=== PATIENT | female | born 1965 | race Caucasian/White ===

== ENCOUNTER → 2019-04-03 | Outpatient (CLI) | payer MEDICAID ==
[~2019-04-03] MED LIST: FLUO40CA PO; HYDR-34 PO; METF-380 PO; NAPR220C11 PO; PNT40TEC PO
[2019-04-03 14:30] LABS: ABSOLUTE RETIC # 57 10e9/L (24-90); RETICULOCYTE % 1.17 % (0.50-2.40)
[2019-04-03 14:43] LABS: BAND NEUTROPHILS 2 %; BASOPHILS % (MANUAL) 0 %; EOSINOPHILS % (MANUAL) 2 %; LYMPHOCYTES % (MANUAL) 27 %; MONOCYTES % (MANUAL) 12 %; NEUTROPHILS % (MANUAL) 55 %; REACTIVE LYMPHOCYTES 2 %
[2019-04-03 14:44] LABS: RBC MORPH NORMAL
== END ==
LOC: LABNPT 14:21
PROVIDERS: ATTEND Family Medicine
DX: Z01.89 Encounter for other specified special examinations (principal)
CPT/HCPCS: 85007; 85045

== ENCOUNTER 2019-04-30 06:58 | Day surgery (SDC) | payer MEDICAID ==
[2019-04-30] VITALS (10 sets, daily range): BP systolic 97–140; BP diastolic 48–96
[~2019-04-30] VITALS: Ht 181 cm; Wt 158.1 kg
[2019-04-30 07:39] LABS: BASOPHILS % (AUTO) 0 % (0-10); EOSINOPHILS # (AUTO) 0.1 10^3/uL (0.0-0.3); EOSINOPHILS % (AUTO) 3 % (0-10); HEMATOCRIT 45 % (35-52); HEMOGLOBIN 14.2 G/DL (11.5-16.0); LYMPHOCYTES # (AUTO) 0.7 X 10^3 (1.0-4.0); LYMPHOCYTES % (AUTO) 32 % (12-44); MEAN CORPUSCULAR HEMOGLOBIN 30 PG (25-34); MEAN CORPUSCULAR HGB CONC 32 G/DL (32-36); MEAN CORPUSCULAR VOLUME 95 FL (80-99); MEAN PLATELET VOLUME 9.9 FL (7.4-10.4); MONOCYTES # (AUTO) 0.2 X 10^3 (0.0-1.0); MONOCYTES % (AUTO) 8 % (0-12); NEUTROPHILS # (AUTO) 1.3 X 10^3 (1.8-7.8); NEUTROPHILS % (AUTO) 57 % (42-75); PLATELET COUNT 65 10^3/uL (130-400); WHITE BLOOD COUNT 2.2 10^3/uL (4.3-11.0)
[2019-04-30 08:13] LABS: BASOPHILS % (MANUAL) 1 %; EOSINOPHILS % (MANUAL) 1 %; LYMPHOCYTES % (MANUAL) 28 %; MONOCYTES % (MANUAL) 7 %; NEUTROPHILS % (MANUAL) 63 %; RBC MORPH NORMAL
[2019-04-30 08:18] LABS: PROTHROMBIN TIME PATIENT 13.5 SEC (12.2-14.7)
[2019-04-30 08:24] LABS: ABSOLUTE RETIC # 52 10e9/L (24-90); RETICULOCYTE % 1.11 % (0.50-2.40)
[2019-04-30] MEDS ORDERED: NS IV 1000 ML 1,000 ML IV STA (08:34)
[2019-04-30] MEDS ORDERED: LIDOCAINE 1% INJ 20 ML 20 ML VIAL INJ ONE (08:45)
[2019-04-30] MEDS ORDERED: MIDAZOLAM 2 MG/2 ML (VERSED) VIAL IVP ONE (08:45)
[2019-04-30] MEDS ORDERED: fentaNYL INJECTION 100 MCG/2 ML AMP IVP ONE (08:45)
--- NOTE | 2019-04-30 09:16 | NUR ---
TO RADIOLOGY FOR PROCEDURE.
--- NOTE | 2019-04-30 10:08 | NUR ---
BACK FROM RADIOLOGY. REPORT RECEIVED FROM Darryn PINTO RN. SCANT AMOUNT OF SHADOWING NOTED ON THE DRESSING. VSS. PRESSURE APPLIED TO THE SITE.
[2019-04-30] MEDS ORDERED: HYDROcodone/APAP 5 MG/325 MG (LORTAB) TAB ONE (10:26)
--- NOTE | 2019-04-30 10:42 | Diagnostic Imaging Report ---
Indication: Decreased white blood cell count. Findings: Patient brought to the CT suite and placed on the table in prone position. Axial imaging through the pelvis was performed to evaluate appropriate entry site. The skin of the posterior pelvis was prepped and draped in usual sterile fashion. The procedure was performed utilizing conscious sedation with radiology nursing and constipation monitoring. Patient was administered a total of 100 mcg of fentanyl intravenously and 1.5 mg of Versed intravenously. Total procedure time is 11 minutes. Small amount of 1% lidocaine was utilized for local anesthesia. Bone marrow needle was advanced and placed with its tip along the posterior cortex of the right iliac bone. The needle was advanced through the cortex into the marrow utilizing the bone marrow drill. The bone marrow aspirate was obtained. Next, a core biopsy was obtained. Needle was removed and hemostasis was obtained using manual compression. Patient tolerated procedure well. Impression: Successful CT-guided bone marrow aspiration and biopsy utilizing conscious sedation. Dictated by: Dictated on workstation # [id number]
--- NOTE | 2019-04-30 10:43 | NUR ---
LORTAB 5 MG X2 GIVEN FOR LOW BACK PAIN. NO FURTHER DRAINAGE NOTED ON THE DRESSING. VSS. LUNCH ORDERED FOR THE PATIENT.
[2019-04-30] MEDS ORDERED: HYDROcodone/APAP 5 MG/325 MG (LORTAB) TAB PO PRN (10:45)
--- NOTE | 2019-04-30 11:48 | Pre-Op Note & Conscious Sedat ---
Pre-Operative Progress Note H&P Reviewed The H&P was reviewed, patient examined and no changes noted. Date H&P Reviewed: Apr 30, 2019 Time H&P Reviewed: 09:00 Pre-Op Diagnosis: Low white blood cell count Conscious Sedation Pre-Proced Time 09:00 ASA Score 2 For ASA 3 and 4: Consider anesthesia and medical clearance. Also, for patients with a history of failed moderate sedation consider anesthesia. Airway Lungs Heart ASA score ASA 1: a normal healthy patient ASA 2: a patient with a mild systemic disease (mid diabetes, controlled hypertension, obesity ASA 3: a patient with a severe systemic disease that limits activity (angina, COPD, prior Myocardial infarction) ASA 4: a patient with an incapacitating disease that is a constant threat to life (CHF, renal failure) ASA 5: a moribund patient not expected to survive 24 hrs. (ruptured aneurysm) ASA 6: a declared brain- patient whose organs are being harvested. For emergent operations, add the letter E after the classification Mallampati Classification Grade 2 Sedation Plan Analgesia, Amnesia, Plan communicated to team members, Discussed options with patient/fam, Discussed risks with patient/fam The patient is an appropriate candidate to undergo the planned procedure, sedation, and anesthesia. The patient immediately re-assessed prior to indication. LACI DE LA GARZA MD Apr 30, 2019 11:48
--- NOTE | 2019-04-30 12:00 | NUR ---
VSS. NO FURTHER DRAINAGE NOTED ON DRESSING. DISCHARGE INSTRUCTIONS WENT OVER WITH THE PATIENT AND HER DAUGHTER.
== END 2019-04-30 12:11 | disposition home or self-care (01) ==
LOC: RAD 06:58 → SDC 10:08 → RAD 12:11
PROVIDERS: ATTEND Internal Medicine Hematology & Oncology
DX: D69.6 Thrombocytopenia, unspecified (principal); I25.10 Atherosclerotic heart disease of native coronary artery without angina pectoris; E11.9 Type 2 diabetes mellitus without complications; D72.818 Other decreased white blood cell count; I10 Essential (primary) hypertension; K58.9 Irritable bowel syndrome, unspecified; E66.01 Morbid (severe) obesity due to excess calories; M19.90 Unspecified osteoarthritis, unspecified site; R16.1 Splenomegaly, not elsewhere classified; I25.2 Old myocardial infarction; Z88.0 Allergy status to penicillin; Z88.8 Allergy status to other drugs, medicaments and biological substances; Z79.84 Long term (current) use of oral hypoglycemic drugs; Z79.899 Other long term (current) drug therapy; Z68.42 Body mass index [BMI] 45.0-49.9, adult; Z90.49 Acquired absence of other specified parts of digestive tract; Z90.710 Acquired absence of both cervix and uterus; Z80.1 Family history of malignant neoplasm of trachea, bronchus and lung; Z80.3 Family history of malignant neoplasm of breast; Z80.6 Family history of leukemia; Z82.49 Family history of ischemic heart disease and other diseases of the circulatory system; Z82.3 Family history of stroke
CPT/HCPCS: 36415; 38222; 77012; 82962; 85007; 85027; 85045; 85610; 85730; 99156

== ENCOUNTER 2019-06-26 09:23 | Outpatient (RCR) | payer MEDICAID ==
[2019-04-16 12:47] LABS: BASOPHILS % (AUTO) 0 % (0-10); EOSINOPHILS # (AUTO) 0.1 10^3/uL (0.0-0.3); EOSINOPHILS % (AUTO) 3 % (0-10); HEMATOCRIT 45 % (35-52); LYMPHOCYTES % (AUTO) 34 % (12-44); MEAN CORPUSCULAR HEMOGLOBIN 31 PG (25-34); MEAN CORPUSCULAR HGB CONC 33 G/DL (32-36); MEAN CORPUSCULAR VOLUME 94 FL (80-99); MEAN PLATELET VOLUME 10.3 FL (7.4-10.4); MONOCYTES # (AUTO) 0.2 X 10^3 (0.0-1.0); MONOCYTES % (AUTO) 8 % (0-12); NEUTROPHILS # (AUTO) 1.6 X 10^3 (1.8-7.8); NEUTROPHILS % (AUTO) 55 % (42-75); PLATELET COUNT 83 10^3/uL (130-400); WHITE BLOOD COUNT 2.9 10^3/uL (4.3-11.0)
[2019-04-16 12:52] LABS: PROTHROMBIN TIME PATIENT 13.4 SEC (12.2-14.7)
[2019-04-16 13:05] LABS: ALANINE AMINOTRANSFERASE 22 U/L (0-55); ALBUMIN 3.8 GM/DL (3.2-4.5); ALKALINE PHOSPHATASE 92 U/L (40-136); BILIRUBIN,TOTAL 0.5 MG/DL (0.1-1.0); BUN/CREATININE RATIO 10; CARBON DIOXIDE 29 MMOL/L (21-32); CHLORIDE 105 MMOL/L (98-107); CREATININE SERUM 0.59 MG/DL (0.60-1.30); GFR ESTIMATED > 60; GLUCOSE 103 MG/DL (70-105); POTASSIUM 3.8 MMOL/L (3.6-5.0); SODIUM 140 MMOL/L (135-145); TOTAL PROTEIN 7.2 GM/DL (6.4-8.2)
[2019-04-16 13:12] LABS: CALCIUM 9.4 MG/DL (8.5-10.1)
[2019-06-26 10:29] LABS: BASOPHILS % (AUTO) 0 % (0-10); EOSINOPHILS # (AUTO) 0.1 10^3/uL (0.0-0.3); EOSINOPHILS % (AUTO) 3 % (0-10); HEMATOCRIT 43 % (35-52); LYMPHOCYTES # (AUTO) 0.9 X 10^3 (1.0-4.0); LYMPHOCYTES % (AUTO) 31 % (12-44); MEAN CORPUSCULAR HEMOGLOBIN 31 PG (25-34); MEAN CORPUSCULAR HGB CONC 32 G/DL (32-36); MEAN CORPUSCULAR VOLUME 94 FL (80-99); MEAN PLATELET VOLUME 10.2 FL (7.4-10.4); MONOCYTES # (AUTO) 0.2 X 10^3 (0.0-1.0); MONOCYTES % (AUTO) 8 % (0-12); NEUTROPHILS # (AUTO) 1.7 X 10^3 (1.8-7.8); NEUTROPHILS % (AUTO) 59 % (42-75); PLATELET COUNT 70 10^3/uL (130-400); RED CELL DISTRIBUTION WIDTH 14.1 % (10.0-14.5); WHITE BLOOD COUNT 2.9 10^3/uL (4.3-11.0)
== END 2019-07-15 | disposition home or self-care (01) ==
LOC: ONC 09:23
PROVIDERS: ATTEND Internal Medicine Hematology & Oncology
DX: D70.9 Neutropenia, unspecified (principal); D69.6 Thrombocytopenia, unspecified; K58.0 Irritable bowel syndrome with diarrhea; R63.0 Anorexia; E11.9 Type 2 diabetes mellitus without complications; I25.10 Atherosclerotic heart disease of native coronary artery without angina pectoris; M19.91 Primary osteoarthritis, unspecified site; I10 Essential (primary) hypertension; E66.9 Obesity, unspecified; Z88.0 Allergy status to penicillin; Z80.1 Family history of malignant neoplasm of trachea, bronchus and lung; Z79.899 Other long term (current) drug therapy
CPT/HCPCS: 36415; 80053; 82525; 82728; 83090; 83540; 83921; 85025; 85610; 85730; 99213; 99214

== ENCOUNTER → 2020-05-14 | Outpatient (CLI) | payer OTHER, MEDICAID ==
[~2020-05-14] MED LIST changes: +ACHD5005 PO; +BUSP10TA95 PO; +DAPA10TA PO; +LEVE500T6 PO; +LISI-556 PO; +METF-399 PO; +METO50TA15 PO; +PHEN100C11 PO; +PRAV20TA3 PO; +TR1C15 TOP; +TRAZ-227 PO; +VENL100T2 PO
== END ==
LOC: LABNPT 13:51
PROVIDERS: ATTEND Internal Medicine
DX: B37.9 Candidiasis, unspecified (principal)
CPT/HCPCS: 84145

== ENCOUNTER 2020-05-16 10:04 | Inpatient (IN) | payer MEDICAID, OTHER ==
[~2020-05-16] VITALS: Ht 177 cm; Wt 169.4 kg
[2020-05-16] VITALS (13 sets, daily range): BP systolic 93–133; BP diastolic 54–71
[~2020-05-16 10:04] MED LIST changes: -ACHD5005 PO; -BUSP10TA95 PO; -DAPA10TA PO; -LEVE500T6 PO; -LISI-556 PO; -METF-399 PO; -METO50TA15 PO; -PHEN100C11 PO; -PRAV20TA3 PO; -TR1C15 TOP; -TRAZ-227 PO; -VENL100T2 PO
[2020-05-16] MEDS ORDERED: LOPERAMIDE 2 MG (IMODIUM) TABLET PO PRN (10:30)
[2020-05-16] MEDS ORDERED: REMDESIVIR INJ 200 MG in NS (IVPB) 210 ML IV ONE (10:30)
[2020-05-16] MEDS ORDERED: CALCIUM CARBONATE 500 MG (TUMS) TAB.CHEW PO PRN (10:30)
[2020-05-16] MEDS ORDERED: VANCOMYCIN INJECTION 0.1 MG in NS (IVPB) 250 ML IV SCH (10:30)
[2020-05-16] MEDS ORDERED: PROMETHAZINE INJ 25 MG/ML (PHENERGAN) AMP IM PRN (10:30)
[2020-05-16] MEDS ORDERED: diphenhydrAMINE 25 MG TAB (BENADRYL) PO PRN (10:30)
[2020-05-16] MEDS ORDERED: DOCUSATE SODIUM 100 MG (COLACE) CAP PO PRN (10:30)
[2020-05-16] MEDS ORDERED: NS IV ONE (11:50)
--- NOTE | 2020-05-16 12:27 | History & Physical ---
History of Present Illness HPI/Chief Complaint CC: Worsening COVID-19 condition requiring transfer to higher level from [facility] HPI: This is a 55yoWF clinic patient of [facility] who presents following a 5 day course at [facility] after she was admitted presumptive COVID on Sunday along with Flu A placed on Tamiflu until COVID swab confirmed so Decadron was started along with convalescent plasma but started to worsen with higher fevers requiring initiation of Vanc and Cefepime for elevated PCT at 0.22. Vapotherm was started yesterday afternoon and this am she once again had decreased O2 sats and appeared to be worsening prompting transfer to [facility] for Pulmonology and critical care services. Source: patient Exam Limitations: no limitations Date Seen 05/16/20 Time Seen by a Provider: 12:20 Attending Physician Comfort Miguel DO PCP Referring Physician Date of Admission May 16, 2020 at 11:36 Home Medications & Allergies Home Medications Reviewed patient Home Medication Reconciliation performed by pharmacy medication reconciliations proof technician helper and/or nursing. Patients Allergies have been reviewed. Allergies Allergies Coded Allergies Penicillins (Verified Allergy, Severe, HIVES, 04/21/13) tramadol HCl (Verified Allergy, Severe, HIVES, 04/21/13) hives and sweats ondansetron HCl (Verified Adverse Reaction, Intermediate, RASH, 04/21/13) Past Brqdldr-Jzmrxv-Tehxpk Hx Past Med/Social Hx: Reviewed Nursing Past Med/Soc Hx, Reviewed and Corrections made Patient Social History Marrital Status: single Employed/Student: unemployed Alcohol Use: Denies Use Smoking Status: Former Smoker Immunizations Up To Date Tetanus Booster (TDap): Unknown Past Medical History brain surgery Respiratory: Pneumonia, Sleep Apnea (not confirmed) Cardiac: High Cholesterol, Hypertension Neurological: Concussion, Seizure Disorder Reproductive: Yes (4 PREGANCIES; 2 BIRTHS) Sexually Transmitted Disease: No HIV/AIDS: No Female Reproductive Disorders: Endometriosis Genitourinary: Kidney Stones Gastrointestinal: Irritable Bowel Musculoskeletal: Degenerate Disk Disease, Arthritis, Back Injury, Chronic Back Pain, Fractures Endocrine: Diabetes, Non-Insulin dep Psychosocial: PTSD, Suicide Attempts, Depression Skin/Integumentary: Eczema Adverse Reaction to Blood Merino: No (2 TRANSFUSIONS - NO REACTIONS) Family History No Pertinent Family Hx Review of Systems Constitutional: see HPI, chills, fever, weakness Respiratory: dyspnea on exertion Physical Exam Physical Exam Vital Signs Vital Signs - First Documented 05/16/20 05/16/20 11:49 12:33 Temp 39.1 Pulse 89 Resp 24 B/P (MAP) 111/66 (81) Pulse Ox 95 O2 Delivery Non Rebreather O2 Flow Rate 15.00 FiO2 100 Capillary Refill : Height, Weight, BMI Height: '" Weight: 373lbs. 6.0oz. 169.497407nf; BMI Method: General Appearance: No Apparent Distress, WD/WN, Chronically ill, Obese Eyes: Bilateral Eye Normal Inspection, Bilateral Eye PERRL HEENT: PERRL/EOMI, Normal ENT Inspection, Pharynx Normal Neck: Full Range of Motion, Normal Inspection, Non Tender, Supple, Carotid Bruit Respiratory: Chest Non Tender, No Respiratory Distress, Accessory Muscle Use, Decreased Breath Sounds Cardiovascular: Regular Rate, Rhythm, No Edema, No Gallop, No JVD, No Murmur, Normal Peripheral Pulses Gastrointestinal: Normal Bowel Sounds, No Organomegaly, No Pulsatile Mass, Non Tender, Soft Back: Normal Inspection, No CVA Tenderness, No Vertebral Tenderness Extremity: Normal Capillary Refill, Normal Inspection, Normal Range of Motion, Non Tender, No Calf Tenderness, No Pedal Edema Neurologic/Psychiatric: Alert, Oriented x3, No Motor/Sensory Deficits, Normal Mood/Affect Skin: Normal Color, Warm/Dry Lymphatic: No Adenopathy Results Results/Procedures Labs Laboratory Tests 05/16/20 15:22 Patient resulted labs reviewed. Assessment/Plan Admission Diagnosis Assessment: COVID-19 Pneumonitis s/o Decadron Day # 5 today and Plasma Worsened respiratory insufficiency Bacterial bronchitis placed on Cefepime and Vanc Day # 2 Obesity Presumed DENNIS Brain surgery hx Chronic leukopenia and thrombocytopenia from liver and spleen enlargement per Dr Stone Plan: ICU care IVF IV abx Antiviral Admission Status: Inpatient Order (span 2 midnights) Reason for Inpatient Admission: COVID PNA Diagnosis/Problems Diagnosis/Problems (1) COVID-19 Clinical Quality Measures DVT/VTE Risk/Contraindication: Risk Factor Score Per Nursin RFS Level Per Nursing on Admit: 4+=Very High COMFORT MIGUEL DO May 16, 2020 12:27
[2020-05-16] MEDS: NS IV 1000 ML 1,000 ML IV SCH ×2 (12:41→18:53)
[2020-05-16] MEDS: CEFEPIME INJECTION 1,000 MG in WATER (STERILE) FOR INJECTION 10 ML IV SCH ×2 (12:42→18:48)
[2020-05-16] MEDS: ACETAMINOPHEN 325 MG TABLET PO PRN (12:42)
[2020-05-16] MEDS ORDERED: VANCOMYCIN 2000 MG/NS 500 ML IVPB IV NR ×2 (12:53)
[2020-05-16] MEDS: guaiFENesin SYRUP 100 MG/5 ML 10 ML (ROBITUSSIN SF) PO PRN ×2 (12:54→21:44)
--- NOTE | 2020-05-16 12:58 | NUR ---
PTD Vanco - Administer loading dose Vancomycin 2gm x 1 over 2 hours. Awaiting chemistry to result to calculate maintenance dose. bc Addendum: 05/16/20 at 1430 by AMY KHALIL [facility] CMP ordered to be able to dose maintenance Vancomycin. Addendum: 05/16/20 at 1611 by AMY KHALIL RP SCr = 0.55; CrCl greater than 120ml/min. Maintenance dose of 1250mg every 8 hours. Trough ordered for prior to 4th dose total.
[2020-05-16 13:32] LABS: ABG BASE EXCESS 0.9 MMOL/L (-2.5-2.5); ABG OXYGEN SATURATION 94 % (94-100); ABG PCO2 45 MMHG (35-45); ABG PH 7.37 (7.37-7.43); ABG PO2 75 MMHG (79-93); ABG TCO2 26.5 MMOL/L (21.0-31.0)
[2020-05-16 13:34] LABS: ALLENS TEST POS; INSPIRED O2 40; PATIENT TEMP 38.5; VENTILATOR NO
[2020-05-16] MEDS: ENOXAPARIN 60 MG/0.6 ML (LOVENOX) SYR SC SCH (14:37)
--- NOTE | 2020-05-16 15:32 | CONSULTATION REPORT ---
DATE OF SERVICE: ADMITTING PHYSICIAN: Comfort Miguel DO HISTORY OF PRESENT ILLNESS: The patient is a 55-year-old female, who presented to [facility] Emergency Department with shortness of breath and chest pain and was eventually found to be COVID-19 positive. She was treated conservatively with breathing treatments as well as other noninvasive ventilation modalities; however, she has slowly worsened over time. It was decided to proceed with a transfer to for higher level of care including pulmonology care. PAST MEDICAL HISTORY: Diabetes, depression, eczema, history of nephrolithiasis, degenerative joint disease, endometriosis. PAST SURGICAL HISTORY: None known. ALLERGIES: PENICILLIN, TRAMADOL, ZOFRAN. MEDICATIONS: Fluoxetine 40 mg daily, hydrocodone p.r.n., metformin 1000 mg b.i.d., naproxen q.12 hours p.r.n., Protonix 40 mg daily. SOCIAL HISTORY: No smoking, no alcohol. FAMILY HISTORY: Noncontributory. VITAL SIGNS: Temperature 38.9, blood pressure 115/58, pulse 90, respirations 39, pulse ox 95% on 40% humidified Vapotherm. REVIEW OF SYSTEMS: This is an obese female who is slightly guarded secondary to the shortness of breath. She did have an arterial gas drawn, which did look relatively stable. She will be monitored; however, she may need intubation if she continues to decline. She also does have poor peripheral venous circulation and will likely need a central venous catheter. No nausea, vomiting, no diarrhea, constipation. Intermittent episodes of fever, chills. No recent inadvertent weight loss. All other review of systems negative. PHYSICAL EXAMINATION: CHEST: Scattered rales and rhonchi bilaterally. HEART: Regular, no murmurs. EXTREMITIES: No lower extremity edema, negative Homans sign. HEENT: No scleral icterus. NECK: No cervical lymphadenopathy. ABDOMEN: Soft, nontender, nondistended. SKIN: Warm, dry. ASSESSMENT AND PLAN: A 55-year-old female with progressive complications related to COVID-19 including acute lung injury and respiratory distress. She was transferred to for further definitive care and we will continue to monitor her progress; however, also place a central venous catheter for multiple medications as well as possible vasopressors. Job ID: [id number] DocumentID: [id number] Dictated Date: 05/16/2020 15:11:46 Lean Manufacturing Coordinator Date: 05/16/2020 15:31:38 Dictated By: CLARENCE LUNA MD
[2020-05-16] MEDS ORDERED: fentaNYL INJECTION 100 MCG/2 ML AMP ONE (15:35)
[2020-05-16 15:40] LABS: HEMATOCRIT 29 % (35-52); HEMOGLOBIN 9.5 G/DL (11.5-16.0); MEAN CORPUSCULAR HEMOGLOBIN 31 PG (25-34); MEAN CORPUSCULAR HGB CONC 33 G/DL (32-36); MEAN CORPUSCULAR VOLUME 95 FL (80-99); WHITE BLOOD COUNT 3.4 10^3/uL (4.3-11.0)
[2020-05-16 15:41] LABS: BASOPHILS % (AUTO) 0 % (0-10); EOSINOPHILS % (AUTO) 0 % (0-10); LYMPHOCYTES # (AUTO) 0.5 X 10^3 (1.0-4.0); LYMPHOCYTES % (AUTO) 16 % (12-44); MEAN PLATELET VOLUME 10.7 FL (7.4-10.4); MONOCYTES # (AUTO) 0.1 X 10^3 (0.0-1.0); MONOCYTES % (AUTO) 3 % (0-12); NEUTROPHILS # (AUTO) 2.7 X 10^3 (1.8-7.8); NEUTROPHILS % (AUTO) 80 % (42-75); PLATELET COUNT 61 10^3/uL (130-400)
[2020-05-16 15:49] LABS: ALBUMIN 2.8 GM/DL (3.2-4.5); CHLORIDE 101 MMOL/L (98-107); POTASSIUM 3.1 MMOL/L (3.6-5.0); SODIUM 133 MMOL/L (135-145)
[2020-05-16 15:50] LABS: INR 1.3 (0.8-1.4); PROTHROMBIN TIME PATIENT 16.7 SEC (12.2-14.7)
[2020-05-16 15:51] LABS: CALCIUM 7.4 MG/DL (8.5-10.1)
[2020-05-16 15:52] LABS: GLUCOSE 160 MG/DL (70-105); TOTAL PROTEIN 5.8 GM/DL (6.4-8.2)
[2020-05-16 15:53] LABS: CARBON DIOXIDE 22 MMOL/L (21-32)
[2020-05-16 15:54] LABS: BILIRUBIN,TOTAL 0.4 MG/DL (0.1-1.0)
[2020-05-16 15:55] LABS: ALKALINE PHOSPHATASE 76 U/L (40-136); CREATININE SERUM 0.55 MG/DL (0.60-1.30); GFR ESTIMATED > 60
[2020-05-16 15:57] LABS: BUN/CREATININE RATIO 9
[2020-05-16 15:58] LABS: ALANINE AMINOTRANSFERASE 19 U/L (0-55)
[2020-05-16 16:05] LABS: CREATINE KINASE MB 0.7 NG/ML (<6.6)
[2020-05-16] MEDS ORDERED: RT-ALBUTEROL INHALER HFA (VENTOLIN HFA) 18 GM IH PRN (16:15)
--- NOTE | 2020-05-16 16:38 | Diagnostic Imaging Report ---
INDICATION: Central line placement. EXAMINATION: Portable erect AP chest at 4:27 p.m. COMPARISON: There are no prior chest examinations available for comparison. FINDINGS: The heart size is mildly enlarged. There are diffuse rounded alveolar/interstitial infiltrates involving both lungs. Whether these are secondary to pneumonia/atelectasis or to neoplastic mass lesions is not certain. If further evaluation is desired, then CT of the chest would be recommended. The mediastinum is not widened. The osseous structures are intact. There has been insertion of a central venous catheter on the left. The tip of the catheter overlies the midportion of the superior vena cava near its junction with the innominate vein. There is no pneumothorax identified. IMPRESSION: 1. There are diffuse rounded alveolar/interstitial infiltrates involving both lungs. Whether these are secondary to pneumonia/atelectasis, neoplasm or a combination of both is not certain. Recommendations as above. 2. There has been insertion of a central venous catheter on the left without apparent complication. Dictated by: Dictated on workstation # [id number]
--- NOTE | 2020-05-16 17:42 | Diagnostic Imaging Report ---
PROCEDURE: CT angiography of the chest with contrast. TECHNIQUE: Multiple contiguous axial images were obtained through the chest after uneventful bolus administration of intravenous contrast. 3D reconstructed CTA MIP acquisitions were also performed. Auto Exposure Controls were utilized during the CT exam to meet ALARA standards for radiation dose reduction. INDICATION: Hypoxia. Covid positive. COMPARISON: Chest radiograph performed earlier the same date. FINDINGS: This helical CT pulmonary angiogram is suboptimal secondary to motion artifact from breathing. No large central pulmonary embolism is seen. The heart and great vessels are unremarkable. There is no pericardial effusion. No pathologically enlarged lymphadenopathy is seen in the chest. Patchy near consolidative opacities are seen throughout the lungs with more consolidative opacities in the bilateral lung bases. No central endobronchial obstructing lesions. No pleural effusion or pneumothorax. Osseous structures appear normal. There is hepatic steatosis. IMPRESSION: 1. Suboptimal CTA of the chest secondary to motion artifact from breathing. No large central pulmonary embolism is seen. 2. Patchy opacities throughout the lungs with more consolidative opacities in the bilateral lung bases. These findings are consistent with a history of Covid. No pleural effusion. 3. Hepatic steatosis. Dictated by: Dictated on workstation # [id number]
[2020-05-16] MEDS: RT-ALBUTEROL INHALER HFA (VENTOLIN HFA) 18 GM IH SCH (18:44)
[2020-05-16] MEDS: ALPRAZolam 0.25 MG (XANAX) TAB PO PRN (18:47)
[2020-05-16] MEDS: HYDROcodone/APAP 5 MG/325 MG (LORTAB) TAB PO PRN (18:48)
[2020-05-16] MEDS: VANCOMYCIN 1250 MG/NS 250 ML IVPB IV SCH ×2 (21:44)
[2020-05-17] VITALS (27 sets, daily range): BP systolic 92–127; BP diastolic 51–84
[2020-05-17] MEDS ORDERED: LEVETIRACETAM 1,000 MG (KEPPRA) TABLET PO ONE (00:10)
[2020-05-17] MEDS ORDERED: PHENYTOIN 100 MG (DILANTIN) CAP PO ONE (00:10)
[2020-05-17] MEDS ORDERED: LEVETIRACETAM 500 MG (KEPPRA) TAB PO ONE (00:10)
[2020-05-17] MEDS ORDERED: VENlafaxine 75 MG (EFFEXOR) TAB ONE (00:33)
[2020-05-17] MEDS: CEFEPIME INJECTION 1,000 MG in WATER (STERILE) FOR INJECTION 10 ML IV SCH ×5 (00:33→23:08)
[2020-05-17] MEDS: ENOXAPARIN 60 MG/0.6 ML (LOVENOX) SYR SC SCH ×2 (00:33→11:57)
[2020-05-17] MEDS: HYDROcodone/APAP 5 MG/325 MG (LORTAB) TAB PO PRN ×2 (00:36→08:41)
[2020-05-17] MEDS: LEVETIRACETAM 500 MG (KEPPRA) TAB PO SCH ×2 (00:37→08:36)
[2020-05-17] MEDS: LEVETIRACETAM 1,000 MG (KEPPRA) TABLET PO SCH ×2 (00:38→08:35)
[2020-05-17] MEDS ORDERED: VENLAFAXINE 50 MG (EFFEXOR) TABLET ONE (00:45)
[2020-05-17] MEDS: ACETAMINOPHEN 325 MG TABLET PO PRN (00:52)
[2020-05-17] MEDS: VENLAFAXINE 50 MG (EFFEXOR) TABLET PO SCH ×3 (00:52→21:28)
--- NOTE | 2020-05-17 01:52 | OPERATIVE REPORT ---
DATE OF SERVICE: 05/16/2020 ATTENDING PRIMARY CARE PHYSICIAN: Dr. Miguel. PREOPERATIVE DIAGNOSIS: COVID-19 and respiratory failure. POSTOPERATIVE DIAGNOSES: COVID-19 and respiratory failure. PROCEDURE: Placement of left subclavian central venous catheter. SURGEON: Clarence Luna MD ANESTHESIA: Local. ESTIMATED BLOOD LOSS: Minimal. DISPOSITION: The patient tolerated the procedure well. INDICATIONS: The patient is a 55-year-old female who was admitted five days ago at [facility] for shortness of breath, cough as well as chest tightness. She eventually came back COVID positive. She had been status quo, however, in the past day, and has had worsening shortness of breath as well as decreased oxygen saturations. She was transferred to [facility] Emergency Department for further definitive care including potential intubation as well as Pulmonary Specialty consultation. She has been hypotensive and has poor peripheral venous circulation and will require a central venous catheter. DESCRIPTION OF PROCEDURE: The patient was laid supine on her bed, and the chest and neck were prepped and draped in standard surgical fashion. 1% lidocaine was used to anesthetize the left subclavian region. The left subclavian vein was then cannulated with drawing of venous blood. Guidewire was inserted without any resistance. Cannulating needle removed and a skin incision made using 11 blade. A tract was then created using a venous dilator and through this tract, a triple lumen central venous catheter was placed over the guidewire. The guidewire was then removed and all three ports zainab venous blood and saline pushed in without any resistance. Catheter was then sutured to the skin using 3-0 silk interrupted sutures. Catheter was then cleaned and covered with Op-Site. The patient tolerated the procedure well. We will get a post-procedure chest x-ray. Job ID: [id number] DocumentID: [id number] Dictated Date: 05/16/2020 16:05:02 Automobile Body Repair Supervisor Date: 05/17/2020 01:52:30 Dictated By: CLARENCE LUNA MD
[2020-05-17] MEDS: RT-ALBUTEROL INHALER HFA (VENTOLIN HFA) 18 GM IH SCH ×4 (03:43→18:33)
[2020-05-17 04:11] LABS: BASOPHILS % (AUTO) 0 % (0-10); EOSINOPHILS % (AUTO) 0 % (0-10); MEAN PLATELET VOLUME 11.1 fL (9.0-12.2); WHITE BLOOD COUNT 3.2 10^3/uL (4.3-11.0)
[2020-05-17 04:14] LABS: HEMATOCRIT 34 % (35-52); LYMPHOCYTES # (AUTO) 0.6 10^3/uL (1.0-4.0); LYMPHOCYTES % (AUTO) 17 % (12-44); MEAN CORPUSCULAR HEMOGLOBIN 31 pg (25-34); MEAN CORPUSCULAR HGB CONC 33 g/dL (32-36); MEAN CORPUSCULAR VOLUME 94 fL (80-99); MONOCYTES # (AUTO) 0.2 10^3/uL (0.0-1.0); MONOCYTES % (AUTO) 6 % (0-12); NEUTROPHILS # (AUTO) 2.4 10^3/uL (1.8-7.8); NEUTROPHILS % (AUTO) 75 % (42-75); PLATELET COUNT 74 10^3/uL (130-400)
[2020-05-17 04:20] LABS: ALBUMIN 2.9 GM/DL (3.2-4.5)
[2020-05-17 04:21] LABS: CHLORIDE 101 MMOL/L (98-107); POTASSIUM 3.1 MMOL/L (3.6-5.0); SODIUM 136 MMOL/L (135-145)
[2020-05-17 04:22] LABS: CALCIUM 7.4 MG/DL (8.5-10.1)
[2020-05-17 04:23] LABS: GLUCOSE 167 MG/DL (70-105)
[2020-05-17 04:24] LABS: CARBON DIOXIDE 22 MMOL/L (21-32)
[2020-05-17 04:25] LABS: BILIRUBIN,TOTAL 0.5 MG/DL (0.1-1.0)
[2020-05-17] MEDS: NS IV 1000 ML 1,000 ML IV SCH (04:25)
[2020-05-17 04:26] LABS: ALKALINE PHOSPHATASE 87 U/L (40-136)
[2020-05-17 04:27] LABS: CREATININE SERUM 0.53 MG/DL (0.60-1.30); GFR ESTIMATED > 60
[2020-05-17 04:28] LABS: BUN/CREATININE RATIO 8
[2020-05-17 04:30] LABS: ALANINE AMINOTRANSFERASE 19 U/L (0-55)
[2020-05-17] MEDS: POTASSIUM CL 10MEQ/50ML IVPB 50 ML IV SCH ×9 (04:58→12:04)
[2020-05-17] MEDS: MAGNESIUM 1 GM/100 ML IVPB 100 ML IV SCH (04:58)
[2020-05-17] MEDS: KCL 20 MEQ TAB (K-DUR) PO SCH (04:59)
[2020-05-17] MEDS ORDERED: FUROSEMIDE 40 MG/4 ML INJ (LASIX) IVP ONE (05:30)
--- NOTE | 2020-05-17 05:35 | Pulmonary Consultation ---
History of Present Illness History of Present Illness Date Seen by Provider: May 17, 2020 Time Seen by Provider: 05:30 Date of Admission Allergies and Home Medications Allergies Coded Allergies: Penicillins (Verified Allergy, Severe, HIVES, 04/21/13) tramadol HCl (Verified Allergy, Severe, HIVES, 04/21/13) hives and sweats ondansetron HCl (Verified Adverse Reaction, Intermediate, RASH, 04/21/13) Home Medications Fluoxetine Hcl 40 Mg Capsule, 40 MG PO DAILY, (Reported) Hydrocodone Bit/Acetaminophen 1 Ea Tablet, 1-2 EA PO Q6H PRN, (Reported) NEEDED FOR CHRONIC PAIN UNRELIEVED BY ALEVE Metformin Hcl 1,000 Mg Tablet, 1,000 MG PO BID WITH MEALS, (Reported) Hold for 48 hours Naproxen Sodium 220 Mg Capsule, 440 MG PO Q12H PRN, (Reported) NEEDED FOR CHRONIC PAIN Pantoprazole Sodium 40 Mg Tablet.dr, 40 MG PO DAILY, (Reported) Past Gbuzxjh-Vuwaat-Zjtbvp Hx Past Med/Social Hx: Reviewed Nursing Past Med/Soc Hx, Reviewed and Corrections made Patient Social History Alcohol Use: Denies Use Smoking Status: Former Smoker Immunizations Up To Date Tetanus Booster (TDap): Unknown Past Medical History COPD High Cholesterol, Hypertension Concussion, Seizure Disorder Reproductive Disorders: Yes (4 PREGANCIES; 2 BIRTHS) Female Reproductive Disorders: Endometriosis Sexually Transmitted Disease: No HIV/AIDS: No Kidney Stones Irritable Bowel Degenerate Disk Disease, Arthritis, Back Injury, Chronic Back Pain, Fractures Diabetes, Non-Insulin dep PTSD, Suicide Attempts, Depression Eczema Adverse Reaction/Blood Tranf: No (2 TRANSFUSIONS - NO REACTIONS) Family Medical History No Pertinent Family Hx Sepsis Event Evaluation Height, Weight, BMI Height: '" Weight: 373lbs. 6.0oz. 169.400075vh; 49.98 BMI Method: Exam Exam Vital Signs Date Time Temp Pulse Resp B/P (MAP) Pulse Ox O2 Delivery O2 Flow Rate FiO2 05/17/20 04:00 89 29 117/65 (82) 88 Vapotherm 40.00 100.00 05/17/20 04:00 92 Vapotherm 40.00 100 05/17/20 03:43 95 Vapotherm 40.00 100 05/17/20 03:00 89 33 118/70 (86) 93 Vapotherm 40.00 100.00 05/17/20 02:00 99 115/64 (81) 93 Vapotherm 40.00 100.00 05/17/20 01:00 99 119/57 (77) 91 Vapotherm 40.00 100.00 05/17/20 01:00 99 05/17/20 00:52 38.0 05/17/20 00:44 38.0 Vapotherm 40.00 100.00 05/17/20 00:00 91 Vapotherm 40.00 100 05/17/20 00:00 93 26 112/58 (76) 95 Vapotherm 40.00 100.00 05/16/20 23:18 95 27 92 Vapotherm 40.00 100.00 05/16/20 23:15 96 118/60 (79) 90 Vapotherm 40.00 90.00 05/16/20 23:00 95 Vapotherm 40.00 90 05/16/20 22:00 93 30 127/55 (79) 95 Vapotherm 40.00 90.00 05/16/20 21:00 96 15 129/58 (81) 94 Vapotherm 40.00 90.00 05/16/20 20:39 37.1 Vapotherm 40.00 90.00 05/16/20 20:00 92 Vapotherm 40.00 90 05/16/20 20:00 101 27 93/62 (72) 92 Vapotherm 40.00 100.00 05/16/20 19:08 106 30 127/64 (85) Vapotherm 40.00 100.00 05/16/20 19:00 122 05/16/20 18:45 97 Vapotherm 40.00 100 05/16/20 18:00 95 34 130/64 (86) 97 Vapotherm 40.00 100.00 05/16/20 17:00 97 29 133/71 (91) 93 Vapotherm 40.00 100.00 05/16/20 16:13 97 Vapotherm 40.00 05/16/20 16:00 38.6 90 92 05/16/20 16:00 38.0 90 20 133/71 (91) 96 05/16/20 15:00 90 16 118/61 (80) 92 Vapotherm 40.00 100.00 05/16/20 14:00 90 39 115/58 (77) 95 Vapotherm 40.00 100.00 05/16/20 13:00 92 05/16/20 13:00 93 39 106/54 (71) 93 Vapotherm 40.00 100.00 05/16/20 12:42 38.6 05/16/20 12:33 Vapotherm 40.00 100 05/16/20 12:01 95 Non Rebreather 15.00 05/16/20 12:00 90 11 121/61 (81) 93 Non Rebreather 15.00 05/16/20 12:00 95 Vapotherm 40.00 05/16/20 11:58 90 05/16/20 11:49 39.1 89 24 111/66 (81) 95 Non Rebreather 15.00 I & O 05/17/20 07:00 Intake Total 1300 ml Balance 1300 ml Height & Weight Height: '" Weight: 373lbs. 6.0oz. 169.729613gi; 49.98 BMI Method: General Appearance: No Apparent Distress, WD/WN, Chronically ill, Obese HEENT: PERRL/EOMI, Normal ENT Inspection, Pharynx Normal Neck: Full Range of Motion, Normal Inspection, Non Tender, Supple, Carotid Bruit Respiratory: Chest Non Tender, No Respiratory Distress, Accessory Muscle Use, Decreased Breath Sounds Cardiovascular: Regular Rate, Rhythm, No Edema, No Gallop, No JVD, No Murmur, Normal Peripheral Pulses Capillary Refill: Less Than 3 Seconds Extremity: Normal Capillary Refill, Normal Inspection, Normal Range of Motion, Non Tender, No Calf Tenderness, No Pedal Edema Neurologic/Psychiatric: Alert, Oriented x3, No Motor/Sensory Deficits, Normal Mood/Affect Skin: Normal Color, Warm/Dry Lymphatic: No Adenopathy Results Lab Laboratory Tests 05/16/20 15:22 05/17/20 03:00 Assessment/Plan Assessment/Plan COVID + with acute respiratory failure -Continue Remdesivir -Daily CMPs -increase decadron to 20mg -s/p Convalescent plasma x 2 at [facility] -Vapotherm -Awake proning -BiPAP PRN Obesity with probable DENNIS hx of brain surgery and seizures -Home seizure meds restarted Hypokalemia -Replace and recheck Chronic pancytopenia -- Follows with hematology MARY JONES DO May 17, 2020 05:35
[2020-05-17 05:51] LABS: PHOSPHORUS 1.5 MG/DL (2.3-4.7)
[2020-05-17 05:53] LABS: MAGNESIUM 1.8 MG/DL (1.6-2.4)
[2020-05-17] MEDS: VANCOMYCIN 1250 MG/NS 250 ML IVPB IV SCH ×6 (06:47→23:13)
[2020-05-17] MEDS ORDERED: PHENYTOIN 100 MG (DILANTIN) CAP PO SCH ×2 (08:00→20:00)
[2020-05-17] MEDS ORDERED: VENlafaxine 75 MG (EFFEXOR) TAB PO SCH (08:00)
[2020-05-17] MEDS: PANTOPRAZOLE 40 MG (PROTONIX) VIAL IV SCH (08:37)
[2020-05-17] MEDS: dexAMETHasone INJECTION 20 MG in NS (IVPB) 50 ML IV SCH (08:37)
[2020-05-17] MEDS ORDERED: dexAMETHasone 6 MG TAB (DECADRON) PO SCH (09:00)
--- NOTE | 2020-05-17 10:40 | Progress Note - Hospitalist ---
Subjective HPI/CC On Admission Date Seen by Provider: May 17, 2020 Time Seen by Provider: 09:00 CC: Worsening COVID-19 condition requiring [place] [facility] [place]PI: This is a 55yoWF clinic patient of [facility] who presents following a 5 day course at [facility] after she was admitted presumptive COVID on Sunday along with Flu A placed on Tamiflu until COVID swab confirmed so Decadron was started along with convalescent plasma but started to worsen with higher fevers requiring initiation of Vanc and Cefepime for elevated PCT at 0.22. Vapotherm was started yesterday afternoon and this am she once again had decreased O2 sats and appeared to be worsening prompting transfer to [facility] for Pulmonology and critical care services. Subjective/Events-last exam Pt doing very well but she is very anxious Maintain on Vapotherm Hydrocodone will be changed to 2 at a time as she takes at home Overall depressed but I did reassure her Labs remain stable Review of Systems General: Fatigue, Malaise Neurological: Weakness Focused Exam Lactate Level 05/16/20 15:22: Lactic Acid Level 1.78 Objective Exam Vital Signs Vital Signs Date Time Temp Pulse Resp B/P (MAP) Pulse Ox O2 Delivery O2 Flow Rate FiO2 05/17/20 19:53 77 92/51 05/17/20 19:51 37.3 24 96 Mechanical Ventilator 100.00 05/17/20 18:33 50 Capillary Refill : Less Than 3 Seconds General Appearance: No Apparent Distress, WD/WN, Chronically ill Respiratory: Normal Breath Sounds, No Accessory Muscle Use, No Respiratory Distress, Decreased Breath Sounds Cardiovascular: Regular Rate, Rhythm, No Edema Neurologic/Psychiatric: Alert, Oriented x3 Results/Procedures Lab Laboratory Tests 05/17/20 03:00 05/17/20 17:10 Patient resulted labs reviewed. Assessment/Plan Assessment and Plan Assess & Plan/Chief Complaint Assessment: COVID-19 Pneumonitis s/o Decadron Day # 5 today and Plasma Worsened respiratory insufficiency Bacterial bronchitis placed on Cefepime and Vanc Day # 2 Obesity Presumed DENNIS Brain surgery hx Chronic leukopenia and thrombocytopenia from liver and spleen enlargement per Dr Stone Plan: ICU care IVF IV abx Antiviral 05/17/20: Maintain ICU status Vapotherm Appreciate Dr. Betts Diagnosis/Problems Diagnosis/Problems (1) COVID-19 Clinical Quality Measures DVT/VTE Risk/Contraindication: Risk Factor Score Per Nursin RFS Level Per Nursing on Admit: 4+=Very High BRIGID DE LA O DO May 17, 2020 10:40
--- NOTE | 2020-05-17 10:56 | NUR ---
DR DE LA O ON FLOOR NEW VERBAL ORDERS RECEIVED SEE ORDER HX
[2020-05-17] MEDS ORDERED: inSUlin ASPART (NovoLOG) 1 UNIT/0.01 ML (CHARGE PER UNIT) SQ SCH (11:00)
[2020-05-17] MEDS: REMDESIVIR INJ 100 MG in NS (IVPB) 230 ML IV SCH (11:48)
[2020-05-17] MEDS ORDERED: PROPOFOL DRIP (ICU) 100 ML IV ONE ×2 (13:07→14:59)
[2020-05-17] MEDS ORDERED: NS IV 1000 ML 2,000 ML ONE (13:10)
[2020-05-17] MEDS ORDERED: proPOfol 200 MG/20 ML (DIPRIVAN) VIAL IV ONE (13:39)
--- NOTE | 2020-05-17 14:23 | Anesthesia-Procedure Note ---
Procedures/Interventions Procedure Start/Stop/Diagnosis Date of Procedure: May 17, 2020 Start Time: 13:45 Stop Time: 14:15 Intubation RSI: Yes 100% pre-Ox, [id number]: Yes Intubation Method: orotracheal Videoscope used: Yes Grade View: 1 Medications: Propofol, Rocuronium, Succinylcholine, Versed Mask Ventilation: positive Positive End Tide CO2: Yes Breath Sounds after Intubation: bilateral-equal ETT Securred @ (cm): 21 Intubated with ease: Yes Intubation Complications: O2 saturation decreased Care turned over to: EICU/CARMELA Kelly CRNA May 17, 2020 14:23
--- NOTE | 2020-05-17 14:48 | Diagnostic Imaging Report ---
INDICATION: Covid positive. TIME OF EXAM: 2:33 PM. COMPARISON: Correlation is made to the prior exam from one day earlier. FINDINGS: The patient has been intubated. The ET tube has its tip in good position above the teddy. An NG tube passes below the diaphragm. The left-sided line has its tip overlying the SVC. Patchy airspace pulmonary infiltrates are again noted bilaterally, most significant throughout the right lung. This is similar to yesterday's exam. No effusion or pneumothorax is seen. IMPRESSION: 1. Satisfactory endotracheal tube placement. 2. Diffuse bilateral airspace pulmonary infiltrates, consistent with pneumonia. 3. The report was faxed to Infection Control by cal@2:46 PM. Dictated by: Dictated on workstation # [id number]
[2020-05-17 15:06] LABS: ABG BASE EXCESS 1.9 MMOL/L (-2.5-2.5); ABG OXYGEN SATURATION 96 % (94-100); ABG PCO2 50 MMHG (35-45); ABG PH 7.35 (7.37-7.43); ABG PO2 79 MMHG (79-93); ABG TCO2 28.7 MMOL/L (21.0-31.0)
[2020-05-17 15:07] LABS: ALLENS TEST YES-POS; INSPIRED O2 100%; PATIENT TEMP 36.4; VENTILATOR YES
[2020-05-17] MEDS ORDERED: LORazepam INJ 2 MG/ML (ATIVAN) VIAL ONE (15:28)
[2020-05-17] MEDS: PROPOFOL DRIP (ICU) 100 ML IV SCH ×5 (15:32→23:32)
[2020-05-17] MEDS: LORazepam INJ 2 MG/ML (ATIVAN) VIAL IVP PRN (15:44)
--- NOTE | 2020-05-17 16:21 | NUR ---
LATE ENTRY: 1220 THIS RN IN PT'S ROOM AND PT SITTING UP ON SIDE OF BED TO EAT LUNCH, PT NOTED TO BE TACHYPNEIC AND OXYGEN SATURATION DECREASING TO 85-88%, RT NOTIFIED AND BIPAP BROUGHT IN ROOM, PT UNABLE TO TOLERATE BIPAP, STATES " IT'S MAKING ME CLAUSTROPHOBIC." THIS RN PLACED PT BACK ON VAPOTHERM AND PT LAYING ON LEFT SIDE, SA02 UP 91% 1300 DR JONES UPDATED ON PT'S CONDITION AND ORDERS RECEIVED TO INTUBATE. PT AGREEABLE TO INTUBATION, PT MOVED TO ROOM ICU 2 AND ANESTHESIA IN ROOM TO INTUBATE AT 1330. SEDATION MEDS GIVEN BY ANESTHESIA, 5MG VERSED, 150MG PROPOFOL, 60MG OF SUCCINYLCHOLINE, COLOR CHANGE NOTED AFTER INTUBATION, PT HAS SIZE 8 ETT TUBE, 21 AT LIP. RESTRAINTS APPLIED. 1405 PT GIVEN 50 MG OF ROCURONIUM GIVEN BY ANESTHESIA. PT 02 NOTED AT 95, WILL CONTINUE TO MONITOR CLOSELY. 1510 PT'S DAUGHTER NABILA UPDATED ON PT'S CONDITION.
[2020-05-17] MEDS: fentaNYL INJECTION 1,250 MCG in NS (IVPB) 250 ML IV SCH (17:16)
[2020-05-17] MEDS: inSUlin ASPART (NovoLOG) 1 UNIT/0.01 ML (CHARGE PER UNIT) SQ SCH ×2 (17:23→23:07)
[2020-05-17] MEDS ORDERED: SUCCINYLCHOLINE INJ 100 MG/5 ML SYR/VIAL INJ ONE (18:11)
[2020-05-17] MEDS ORDERED: MIDAZOLAM 5 MG/5 ML (VERSED) VIAL IVP ONE (18:11)
[2020-05-17] MEDS ORDERED: ROCURONIUM 10 MG/ML 5 ML SYRINGE IV ONE (18:11)
[2020-05-17 18:23] LABS: CHLORIDE 101 MMOL/L (98-107); POTASSIUM 3.9 MMOL/L (3.6-5.0); SODIUM 136 MMOL/L (135-145)
[2020-05-17 18:25] LABS: CALCIUM 7.5 MG/DL (8.5-10.1); GLUCOSE 247 MG/DL (70-105); TRIGLYCERIDES 264 MG/DL (<150)
[2020-05-17 18:27] LABS: CARBON DIOXIDE 24 MMOL/L (21-32)
[2020-05-17 18:29] LABS: CREATININE SERUM 0.54 MG/DL (0.60-1.30); GFR ESTIMATED > 60
[2020-05-17 18:30] LABS: BUN/CREATININE RATIO 9
[2020-05-17] MEDS ORDERED: TROUGH ORDER-PHARMACY XX NR (20:00)
[2020-05-17] MEDS ORDERED: MICRON FILTER IV SCH (22:30)
[2020-05-17] MEDS ORDERED: PHENYTOIN IV SCH (22:30)
[2020-05-17] MEDS ORDERED: PHENYTOIN 250 MG/5 ML INJ (DILANTIN) VIAL ONE (22:35)
[2020-05-17] MEDS: LEVETIRACETAM INJECTION 1,500 MG in NS (IVPB) 100 ML IV SCH (23:03)
[2020-05-18] VITALS (30 sets, daily range): BP systolic 91–141; BP diastolic 50–87
[2020-05-18] MEDS: ENOXAPARIN 60 MG/0.6 ML (LOVENOX) SYR SC SCH ×2 (01:45→13:53)
[2020-05-18] MEDS: RT-ALBUTEROL INHALER HFA (VENTOLIN HFA) 18 GM IH SCH ×4 (01:50→21:06)
[2020-05-18 02:05] LABS: ABG BASE EXCESS 0.2 MMOL/L (-2.5-2.5); ABG OXYGEN SATURATION 95 % (94-100); ABG PCO2 47 MMHG (35-45); ABG PH 7.35 (7.37-7.43); ABG PO2 69 MMHG (79-93); ABG TCO2 26.9 MMOL/L (21.0-31.0); ALLENS TEST YES-POS; INSPIRED O2 80%; PATIENT TEMP 35.9; VENTILATOR YES
[2020-05-18 02:06] LABS: BASOPHILS % (AUTO) 0 % (0-10); EOSINOPHILS % (AUTO) 0 % (0-10); HEMATOCRIT 34 % (35-52); LYMPHOCYTES # (AUTO) 0.4 10^3/uL (1.0-4.0); LYMPHOCYTES % (AUTO) 17 % (12-44); MEAN CORPUSCULAR HEMOGLOBIN 31 pg (25-34); MEAN CORPUSCULAR HGB CONC 33 g/dL (32-36); MEAN CORPUSCULAR VOLUME 94 fL (80-99); MEAN PLATELET VOLUME 10.6 fL (9.0-12.2); MONOCYTES # (AUTO) 0.2 10^3/uL (0.0-1.0); MONOCYTES % (AUTO) 7 % (0-12); NEUTROPHILS # (AUTO) 1.8 10^3/uL (1.8-7.8); NEUTROPHILS % (AUTO) 76 % (42-75); PLATELET COUNT 74 10^3/uL (130-400); WHITE BLOOD COUNT 2.3 10^3/uL (4.3-11.0)
[2020-05-18 02:19] LABS: ALBUMIN 2.8 GM/DL (3.2-4.5); CHLORIDE 102 MMOL/L (98-107); POTASSIUM 3.9 MMOL/L (3.6-5.0); SODIUM 137 MMOL/L (135-145)
[2020-05-18 02:20] LABS: CALCIUM 7.5 MG/DL (8.5-10.1)
[2020-05-18 02:22] LABS: GLUCOSE 205 MG/DL (70-105); TOTAL PROTEIN 6.2 GM/DL (6.4-8.2)
[2020-05-18 02:23] LABS: BILIRUBIN,TOTAL 0.5 MG/DL (0.1-1.0); CARBON DIOXIDE 21 MMOL/L (21-32)
[2020-05-18 02:25] LABS: ALKALINE PHOSPHATASE 83 U/L (40-136); CREATININE SERUM 0.54 MG/DL (0.60-1.30); GFR ESTIMATED > 60; PHOSPHORUS 1.6 MG/DL (2.3-4.7)
[2020-05-18 02:26] LABS: BUN/CREATININE RATIO 13
[2020-05-18 02:28] LABS: ALANINE AMINOTRANSFERASE 18 U/L (0-55)
[2020-05-18] MEDS: PROPOFOL DRIP (ICU) 100 ML IV SCH ×6 (03:52→23:34)
[2020-05-18] MEDS: POTASSIUM CL 10MEQ/50ML IVPB 50 ML IV SCH (04:28)
[2020-05-18] MEDS: MAGNESIUM 1 GM/100 ML IVPB 100 ML IV SCH (04:29)
[2020-05-18] MEDS: KCL 20 MEQ TAB (K-DUR) PO SCH (04:29)
--- NOTE | 2020-05-18 05:35 | Pulmonary Progress Note ---
Subjective Time Seen by a Provider: 05:32 Sepsis Event Evaluation Height, Weight, BMI Height: '" Weight: 373lbs. 6.0oz. 169.717723qq; 49.98 BMI Method: Focused Exam Lactate Level 05/16/20 15:22: Lactic Acid Level 1.78 Exam Exam Vital Signs Date Time Temp Pulse Resp B/P (MAP) Pulse Ox O2 Delivery O2 Flow Rate FiO2 05/18/20 04:00 81 23 107/59 (75) 94 Mechanical Ventilator 80.00 05/18/20 03:52 76 93/53 05/18/20 03:52 76 93/53 05/18/20 03:43 93 Mechanical Ventilator 80 05/18/20 03:42 36.0 05/18/20 03:00 76 22 93/53 (66) 93 Mechanical Ventilator 80.00 05/18/20 02:40 73 24 95 50 05/18/20 02:00 73 23 91/50 (64) 92 Mechanical Ventilator 80.00 05/18/20 01:44 Mechanical Ventilator 80.00 05/18/20 01:00 71 05/18/20 01:00 71 23 94/54 (67) 97 Mechanical Ventilator 90.00 05/18/20 00:00 75 24 96/53 (67) 97 Mechanical Ventilator 90.00 05/18/20 00:00 95 Mechanical Ventilator 90 05/17/20 23:32 77 99/57 05/17/20 23:31 77 99/57 05/17/20 23:25 36.9 05/17/20 23:00 77 9 99/57 (71) 95 Mechanical Ventilator 90.00 05/17/20 22:00 81 24 100/52 (68) 95 Mechanical Ventilator 90.00 05/17/20 21:12 Mechanical Ventilator 90.00 05/17/20 21:00 83 31 112/69 (83) 96 Mechanical Ventilator 100.00 05/17/20 20:00 96 Mechanical Ventilator 100 05/17/20 20:00 80 23 98/53 (68) 95 Mechanical Ventilator 100.00 05/17/20 19:53 77 92/51 05/17/20 19:51 37.3 77 24 92/51 (65) 96 Mechanical Ventilator 100.00 05/17/20 19:00 84 26 119/65 (83) 95 Mechanical Ventilator 100.00 05/17/20 19:00 84 10/5/20 18:33 82 24 93 50 05/17/20 18:00 85 21 112/65 (81) 95 Mechanical Ventilator 100.00 05/17/20 17:21 80 05/17/20 17:21 80 05/17/20 17:00 84 35 117/73 (88) 97 Mechanical Ventilator 100.00 05/17/20 16:55 97 Mechanical Ventilator 100 05/17/20 16:06 80 107/58 05/17/20 16:06 80 107/58 05/17/20 16:00 80 26 107/58 (74) 95 Mechanical Ventilator 100.00 05/17/20 15:32 83 123/70 05/17/20 15:00 82 9 111/65 (80) 93 Mechanical Ventilator 100.00 05/17/20 14:37 83 24 92 100 05/17/20 14:00 92 22 103/64 (77) 97 Mechanical Ventilator 100.00 05/17/20 13:00 88 30 122/70 (87) 92 Vapotherm 40.00 100.00 05/17/20 12:45 86 05/17/20 12:25 97 Vapotherm 40.00 100 05/17/20 12:24 36.4 05/17/20 12:00 101 35 127/84 (98) 87 Vapotherm 40.00 100.00 05/17/20 11:00 84 7 117/64 (81) 91 Vapotherm 40.00 100.00 05/17/20 10:00 97 13 116/63 (80) 91 Vapotherm 40.00 100.00 05/17/20 09:00 92 42 109/64 (79) 97 Vapotherm 40.00 100.00 05/17/20 08:57 97 Vapotherm 40.00 100 05/17/20 08:50 36.6 05/17/20 08:00 89 120/68 (85) 97 Vapotherm 40.00 100.00 05/17/20 07:00 89 37 115/65 (82) 93 Vapotherm 40.00 100.00 05/17/20 06:40 108 05/17/20 06:00 82 30 120/74 (89) 97 Vapotherm 40.00 100.00 I & O 05/18/20 07:00 Intake Total 1060 ml Output Total 2225 ml Balance -1165 ml Height & Weight Height: '" Weight: 373lbs. 6.0oz. 169.910577zi; 49.98 BMI Method: General Appearance: No Apparent Distress, WD/WN, Chronically ill HEENT: PERRL/EOMI, Normal ENT Inspection, Pharynx Normal Neck: Full Range of Motion, Normal Inspection, Non Tender, Supple, Carotid Bruit Respiratory: Normal Breath Sounds, No Accessory Muscle Use, No Respiratory Distress, Decreased Breath Sounds Cardiovascular: Regular Rate, Rhythm, No Edema Capillary Refill: Less Than 3 Seconds Extremity: Normal Capillary Refill, Normal Inspection, Normal Range of Motion, Non Tender, No Calf Tenderness, No Pedal Edema Neurologic/Psychiatric: Alert, Oriented x3 Skin: Normal Color, Warm/Dry Lymphatic: No Adenopathy Results Lab Laboratory Tests 05/16/20 15:22 05/17/20 03:00 05/17/20 17:10 05/18/20 01:50 Assessment/Plan Assessment/Plan COVID + /influena A with acute respiratory failure and ARDS -Increase PEEP to 14, decrease VT to 430 and increase RR to 26 -repeat ABG 1hr after change [place] [facility] Remdesivir -Daily CMPs -decadron to 20mg -s/p [place]valescent [place] 2 [place] [facility] [place]Vapotherm -Awake proning -BiPAP PRN Pancytopenia -Check DIC panel Obesity with probable DENNIS hx of brain surgery and seizures -Home seizure meds restarted -Seizure precautions -PRN Ativan Hypokalemia -Replace and recheck Chronic pancytopenia -- Follows with hematology MARY JONES DO May 18, 2020 05:35
[2020-05-18 06:10] LABS: FIBRIN DEGRADATION PRODUCTS 0.63 UG/ML (0.00-0.49); INR 1.1 (0.8-1.4); PROTHROMBIN TIME PATIENT 14.8 SEC (12.2-14.7)
[2020-05-18] MEDS: VANCOMYCIN 1250 MG/NS 250 ML IVPB IV SCH ×2 (06:16)
[2020-05-18] MEDS: LACTATED RINGERS 1,000 ML IV SCH (06:19)
[2020-05-18] MEDS: inSUlin ASPART (NovoLOG) 1 UNIT/0.01 ML (CHARGE PER UNIT) SQ SCH ×4 (06:20→23:43)
[2020-05-18] MEDS: CEFEPIME INJECTION 1,000 MG in WATER (STERILE) FOR INJECTION 10 ML IV SCH ×4 (06:20→23:44)
[2020-05-18] MEDS ORDERED: SODIUM PHOSPHATE INJ 30 MM in NS (IVPB) 250 ML IV ONE (06:30)
[2020-05-18] MEDS: fentaNYL INJECTION 1,250 MCG in NS (IVPB) 250 ML IV SCH ×2 (07:01→18:24)
[2020-05-18] MEDS: LEVETIRACETAM INJECTION 1,500 MG in NS (IVPB) 100 ML IV SCH ×2 (07:57→20:49)
[2020-05-18] MEDS: dexAMETHasone INJECTION 20 MG in NS (IVPB) 50 ML IV SCH (07:57)
[2020-05-18] MEDS: PANTOPRAZOLE 40 MG (PROTONIX) VIAL IV SCH (08:15)
[2020-05-18] MEDS: VENLAFAXINE 50 MG (EFFEXOR) TABLET PO SCH ×3 (08:16→20:44)
--- NOTE | 2020-05-18 08:39 | NUR ---
PTD VANCOMYCIN LABS: 0.54 VANCOMYCIN LVL 9.4 PLAN: INCREASE VANCOMYCIN TO 1,500MG IV Q 8 HOURS, RECHECK A LEVEL IN 24-48 HOURS.
[2020-05-18] MEDS ORDERED: OSELTAMIVIR 6 MG/ML (TAMIFLU) 60 ML BOT PO SCH (09:00)
[2020-05-18] MEDS ORDERED: PHENYTOIN 250 MG/5 ML INJ (DILANTIN) VIAL IV ONE (09:00)
--- NOTE | 2020-05-18 09:12 | Progress Note - Hospitalist ---
Subjective HPI/CC On Admission Date Seen by Provider: May 18, 2020 Time Seen by Provider: 09:00 CC: Worsening COVID-19 condition requiring transfer to higher level from [facility] HPI: This is a 55yoWF clinic patient of [facility] who presents following a 5 day course at [facility] after she was admitted presumptive COVID on Sunday along with Flu A placed on Tamiflu until COVID swab confirmed so Decadron was started along with convalescent plasma but started to worsen with higher fevers requiring initiation of Vanc and Cefepime for elevated PCT at 0.22. Vapotherm was started yesterday afternoon and this am she once again had decreased O2 sats and appeared to be worsening prompting transfer to [facility] for Pulmonology and critical care services. Subjective/Events-last exam Pt was intubated yesterday afternoon Remain prone for Covid recommendation management Labs are stable Pt is critical Focused Exam Lactate Level 05/16/20 15:22: Lactic Acid Level 1.78 Objective Exam Vital Signs Vital Signs Date Time Temp Pulse Resp B/P (MAP) Pulse Ox O2 Delivery O2 Flow Rate FiO2 05/19/20 04:24 69 119/68 05/19/20 04:14 95 Mechanical Ventilator 80 05/19/20 04:00 36.3 05/19/20 03:00 25 80.00 Capillary Refill : Less Than 3 Seconds General Appearance: No Apparent Distress, WD/WN, Chronically ill, Obese, Other (intubated) Respiratory: Decreased Breath Sounds Cardiovascular: Regular Rate, Rhythm Results/Procedures Lab Laboratory Tests 05/19/20 03:15 Patient resulted labs reviewed. Assessment/Plan Assessment and Plan Assess & Plan/Chief Complaint Assessment: COVID-19 Pneumonitis s/o Decadron Day # 5 today and Plasma Worsened respiratory insufficiency Bacterial bronchitis placed on Cefepime and Vanc Day # 2 Obesity Presumed DENNIS Brain surgery hx Chronic leukopenia and thrombocytopenia from liver and spleen enlargement per Dr Stone Plan: ICU care IVF IV abx Antiviral 05/17/20: Maintain ICU status Vapotherm Appreciate Dr. Betts 05/18/20: Maintain intubation Prognosis guarded Appreciate Dr. Betts Diagnosis/Problems Diagnosis/Problems (1) COVID-19 Clinical Quality Measures DVT/VTE Risk/Contraindication: Risk Factor Score Per Nursin RFS Level Per Nursing on Admit: 4+=Very High BRIGID DE LA O DO May 18, 2020 09:11
[2020-05-18] MEDS: NS IV SCH ×6 (11:09→20:44)
[2020-05-18] MEDS: PHENYTOIN IV SCH ×6 (11:09→20:44)
[2020-05-18] MEDS: MICRON FILTER IV SCH ×6 (11:09→20:44)
[2020-05-18] MEDS ORDERED: TRAZ-227 PO (12:47)
[2020-05-18] MEDS ORDERED: TR1C15 TOP (12:47)
[2020-05-18] MEDS ORDERED: ACHD5005 PO (12:47)
[2020-05-18] MEDS ORDERED: METF-399 PO (12:47)
[2020-05-18] MEDS ORDERED: PHEN100C11 PO ×2 (12:47)
[2020-05-18] MEDS ORDERED: BUSP10TA95 PO (12:47)
[2020-05-18] MEDS ORDERED: LISI-556 PO (12:47)
[2020-05-18] MEDS ORDERED: DAPA10TA PO (12:47)
[2020-05-18] MEDS ORDERED: LEVE500T6 PO (12:47)
[2020-05-18] MEDS ORDERED: PRAV20TA3 PO (12:47)
[2020-05-18] MEDS ORDERED: METO50TA15 PO (12:47)
[2020-05-18] MEDS ORDERED: VENL100T2 PO (12:47)
--- NOTE | 2020-05-18 12:52 | NUR ---
UNABLE TO SPEAK WITH THE PT AT THIS TIME- I DID CALL NABILA (DAUGHTER), WENT THRU THE EXT MED HISTORY AND CALLED [facility] TO COMPLETE THE MED REC NABILA DID HAVE A MED LIST THAT SHE WENT OVER WITH ME- SHE WAS UNSURE ON SOME DIRECTIONS BUT LET ME KNOW [facility] HAS BEEN PRE-PACKING [facility] MEDS AND TO CALL THEM WITH ANY QUESTIONS. I SPOKE WITH A MINE ENGINEERING SUPERINTENDENT AT [facility] AND SHE CONFIRMED PT IS SET UP ON MED PACK. OTC MEDS: NONE
[2020-05-18] MEDS: REMDESIVIR INJ 100 MG in NS (IVPB) 230 ML IV SCH (13:36)
[2020-05-18] MEDS: MIDAZOLAM INJECTION FOR DRIPS 50 MG in NS (IVPB) 90 ML IV SCH (13:45)
[2020-05-18] MEDS: VANCOMYCIN 1500 MG/NS 500 ML IVPB IV SCH ×4 (13:53→21:08)
[2020-05-19] VITALS (29 sets, daily range): BP systolic 116–156; BP diastolic 65–85
[2020-05-19] MEDS: RT-ALBUTEROL INHALER HFA (VENTOLIN HFA) 18 GM IH SCH ×4 (01:28→20:17)
[2020-05-19] MEDS: ENOXAPARIN 60 MG/0.6 ML (LOVENOX) SYR SC SCH ×2 (01:36→12:57)
[2020-05-19 03:43] LABS: BASOPHILS % (AUTO) 0 % (0-10); EOSINOPHILS % (AUTO) 0 % (0-10); HEMATOCRIT 33 % (35-52); HEMOGLOBIN 10.7 g/dL (11.5-16.0); LYMPHOCYTES # (AUTO) 0.5 10^3/uL (1.0-4.0); LYMPHOCYTES % (AUTO) 19 % (12-44); MEAN CORPUSCULAR HEMOGLOBIN 31 pg (25-34); MEAN CORPUSCULAR HGB CONC 32 g/dL (32-36); MEAN CORPUSCULAR VOLUME 95 fL (80-99); MEAN PLATELET VOLUME 10.6 fL (9.0-12.2); MONOCYTES # (AUTO) 0.2 10^3/uL (0.0-1.0); MONOCYTES % (AUTO) 8 % (0-12); NEUTROPHILS # (AUTO) 1.9 10^3/uL (1.8-7.8); NEUTROPHILS % (AUTO) 73 % (42-75); PLATELET COUNT 79 10^3/uL (130-400); WHITE BLOOD COUNT 2.7 10^3/uL (4.3-11.0)
[2020-05-19 03:52] LABS: ALBUMIN 2.7 GM/DL (3.2-4.5); CHLORIDE 104 MMOL/L (98-107); POTASSIUM 3.6 MMOL/L (3.6-5.0); SODIUM 139 MMOL/L (135-145)
[2020-05-19 03:54] LABS: CALCIUM 7.5 MG/DL (8.5-10.1); TRIGLYCERIDES 274 MG/DL (<150)
[2020-05-19 03:55] LABS: GLUCOSE 168 MG/DL (70-105); TOTAL PROTEIN 5.9 GM/DL (6.4-8.2)
[2020-05-19 03:56] LABS: CARBON DIOXIDE 23 MMOL/L (21-32)
[2020-05-19 03:57] LABS: BILIRUBIN,TOTAL 0.4 MG/DL (0.1-1.0)
[2020-05-19 03:58] LABS: ABG BASE EXCESS 1.6 MMOL/L (-2.5-2.5); ABG OXYGEN SATURATION 95 % (94-100); ABG PCO2 51 MMHG (35-45); ABG PH 7.35 (7.37-7.43); ABG PO2 76 MMHG (79-93); ABG TCO2 28.4 MMOL/L (21.0-31.0); ALKALINE PHOSPHATASE 81 U/L (40-136); ALLENS TEST YES-POS; CREATININE SERUM 0.54 MG/DL (0.60-1.30); GFR ESTIMATED > 60; PHOSPHORUS 1.7 MG/DL (2.3-4.7)
[2020-05-19 03:59] LABS: INSPIRED O2 80%; PATIENT TEMP NOT INDICATED; VENTILATOR YES
[2020-05-19 04:00] LABS: BUN/CREATININE RATIO 13
[2020-05-19 04:01] LABS: ALANINE AMINOTRANSFERASE 23 U/L (0-55); MAGNESIUM 1.8 MG/DL (1.6-2.4)
[2020-05-19] MEDS: fentaNYL INJECTION 1,250 MCG in NS (IVPB) 250 ML IV SCH ×3 (04:24→21:42)
[2020-05-19] MEDS: PROPOFOL DRIP (ICU) 100 ML IV SCH ×5 (04:24→19:55)
[2020-05-19] MEDS: POTASSIUM CL 10MEQ/50ML IVPB 50 ML IV SCH ×2 (04:25→06:01)
[2020-05-19] MEDS: MAGNESIUM 1 GM/100 ML IVPB 100 ML IV SCH ×3 (04:26→06:56)
[2020-05-19] MEDS: KCL 20 MEQ TAB (K-DUR) PO SCH (04:26)
[2020-05-19] MEDS ORDERED: MIDAZOLAM FOR DRIPS 10 MG/2 ML VIAL ONE (04:29)
[2020-05-19] MEDS ORDERED: NS (IVPB) 100 ML ONE (04:29)
--- NOTE | 2020-05-19 04:56 | Pulmonary Progress Note ---
Subjective Time Seen by a Provider: 04:56 Subjective/Events-last exam Pt is sedated on vent. Sepsis Event Evaluation Height, Weight, BMI Height: '" Weight: 373lbs. 6.0oz. 169.372611qi; 49.98 BMI Method: Focused Exam Lactate Level 05/16/20 15:22: Lactic Acid Level 1.78 Exam Exam Vital Signs Date Time Temp Pulse Resp B/P (MAP) Pulse Ox O2 Delivery O2 Flow Rate FiO2 05/19/20 04:24 69 119/68 05/19/20 04:14 95 Mechanical Ventilator 80 05/19/20 04:00 36.3 05/19/20 03:00 69 25 119/68 (85) 97 Mechanical Ventilator 80.00 05/19/20 02:00 65 25 125/70 (88) 98 Mechanical Ventilator 80.00 05/19/20 01:36 Mechanical Ventilator 80.00 05/19/20 01:29 67 26 97 90 05/19/20 01:00 67 26 116/67 (83) 96 Mechanical Ventilator 90.00 05/19/20 01:00 67 05/19/20 00:28 Mechanical Ventilator 90.00 05/19/20 00:00 73 25 143/85 (104) 92 Mechanical Ventilator 80.00 05/18/20 23:52 93 Mechanical Ventilator 80 05/18/20 23:37 36.3 05/18/20 23:34 79 113/60 05/18/20 23:00 70 26 128/73 (91) 94 Mechanical Ventilator 80.00 05/18/20 22:00 67 25 119/67 (84) 97 Mechanical Ventilator 80.00 05/18/20 21:07 68 26 95 80 05/18/20 21:00 70 25 132/78 (96) 93 Mechanical Ventilator 80.00 05/18/20 20:00 36.2 05/18/20 20:00 93 Mechanical Ventilator 80 05/18/20 20:00 72 26 122/69 (86) 92 Mechanical Ventilator 80.00 05/18/20 19:00 76 25 127/76 (93) 98 Mechanical Ventilator 80.00 05/18/20 19:00 76 05/18/20 18:17 82 26 96 80 05/18/20 18:15 76 132/75 05/18/20 18:00 62 28 132/73 (92) 96 Mechanical Ventilator 80.00 05/18/20 17:00 78 25 130/80 (97) 98 Mechanical Ventilator 80.00 05/18/20 16:00 92 Mechanical Ventilator 85 05/18/20 16:00 76 25 132/75 (94) 99 Mechanical Ventilator 80.00 05/18/20 15:00 79 26 131/75 (93) 98 Mechanical Ventilator 80.00 05/18/20 14:11 85 26 95 80 05/18/20 14:00 84 24 138/78 (98) 93 Mechanical Ventilator 80.00 05/18/20 13:45 109/79 05/18/20 13:37 109 109/79 05/18/20 13:00 89 35 135/77 (96) 93 Mechanical Ventilator 80.00 05/18/20 12:37 97 05/18/20 12:00 36.1 05/18/20 12:00 88 132/87 (102) 95 Mechanical Ventilator 80.00 05/18/20 12:00 92 Mechanical Ventilator 85 05/18/20 11:17 36.1 05/18/20 11:00 77 25 137/85 (102) 95 Mechanical Ventilator 80.00 05/18/20 10:57 79 26 95 85 05/18/20 10:00 79 26 129/83 (98) 95 Mechanical Ventilator 80.00 05/18/20 09:00 78 26 126/81 (96) 94 Mechanical Ventilator 80.00 05/18/20 08:00 92 Mechanical Ventilator 85 05/18/20 08:00 80 25 125/80 (95) 92 Mechanical Ventilator 85.00 05/18/20 07:00 36.6 76 21 119/63 (81) 92 Mechanical Ventilator 75.00 05/18/20 06:48 85 27 91 80 05/18/20 06:34 79 05/18/20 06:00 79 24 99/56 (70) 93 Mechanical Ventilator 80.00 05/18/20 05:00 80 31 100/57 (71) 93 Mechanical Ventilator 80.00 l I & O 05/19/20 07:00 Intake Total 630 ml Output Total 780 ml Balance -150 ml Height & Weight Height: '" Weight: 373lbs. 6.0oz. 169.248413of; 49.98 BMI Method: General Appearance: No Apparent Distress, WD/WN, Chronically ill, Other (sedated on vent. ) HEENT: PERRL/EOMI, Normal ENT Inspection, Pharynx Normal Neck: Full Range of Motion, Normal Inspection, Non Tender, Supple, Carotid Bruit Respiratory: Normal Breath Sounds, No Accessory Muscle Use, No Respiratory Distress, Decreased Breath Sounds Cardiovascular: Regular Rate, Rhythm, No Edema Capillary Refill: Less Than 3 Seconds Extremity: Normal Capillary Refill, Normal Inspection, Normal Range of Motion, Non Tender, No Calf Tenderness, No Pedal Edema Skin: Normal Color, Warm/Dry Lymphatic: No Adenopathy Results Lab Laboratory Tests 05/17/20 17:10 05/18/20 01:50 05/19/20 03:15 Assessment/Plan Assessment/Plan COVID + /influena A with acute respiratory failure and ARDS -Increase PEEP to 16, decrease VT to 430 and increase RR to 26 -S/p tamiflu and 2 units of convalescent plasma at [facility] [place] -daily vacations -Continue Remdesivir -Daily CMPs -decadron to 20mg -Start TF with pulmicare at 15cc/hr - Trophic feeds. -Continue while proning. -s/p Convalescent plasma x 2 at [facility] [place] -proning at shift changes secondary to BMI -BiPAP PRN Pancytopenia -Check DIC panel Obesity with probable DENNIS hx of brain surgery and seizures -Home seizure meds restarted -Seizure precautions -PRN Ativan Hypokalemia -Replace and recheck Chronic pancytopenia -- Follows with hematology GI and DVT PPX - MARY JONES DO May 19, 2020 04:56
[2020-05-19] MEDS: MIDAZOLAM INJECTION FOR DRIPS 50 MG in NS (IVPB) 90 ML IV SCH ×2 (05:58→17:42)
[2020-05-19] MEDS: VANCOMYCIN 1500 MG/NS 500 ML IVPB IV SCH ×6 (05:59→20:27)
[2020-05-19] MEDS: CEFEPIME INJECTION 1,000 MG in WATER (STERILE) FOR INJECTION 10 ML IV SCH ×3 (05:59→17:30)
[2020-05-19] MEDS: LACTATED RINGERS 1,000 ML IV SCH (05:59)
[2020-05-19] MEDS: inSUlin ASPART (NovoLOG) 1 UNIT/0.01 ML (CHARGE PER UNIT) SQ SCH ×3 (06:00→17:37)
[2020-05-19] MEDS: PANTOPRAZOLE 40 MG (PROTONIX) VIAL IV SCH (08:52)
[2020-05-19] MEDS: dexAMETHasone INJECTION 20 MG in NS (IVPB) 50 ML IV SCH (08:52)
[2020-05-19] MEDS: VENLAFAXINE 50 MG (EFFEXOR) TABLET PO SCH ×2 (08:52→20:04)
[2020-05-19] MEDS ORDERED: POTASSIUM PHOSPHATE INJ 30 MM in NS (IVPB) 250 ML IV ONE (09:00)
[2020-05-19] MEDS: LEVETIRACETAM INJECTION 1,500 MG in NS (IVPB) 100 ML IV SCH ×2 (09:02→20:00)
--- NOTE | 2020-05-19 09:12 | Progress Note - Hospitalist ---
Subjective HPI/CC On Admission Date Seen by Provider: May 19, 2020 Time Seen by Provider: 09:05 CC: Worsening COVID-19 condition requiring transfer to higher level from [facility] HPI: This is a 55yoWF clinic patient of [facility] who presents following a 5 day course at [facility] after she was admitted presumptive COVID on Sunday along with Flu A placed on Tamiflu until COVID swab confirmed so Decadron was started along with convalescent plasma but started to worsen with higher fevers requiring initiation of Vanc and Cefepime for elevated PCT at 0.22. Vapotherm was started yesterday afternoon and this am she once again had decreased O2 sats and appeared to be worsening prompting transfer to [facility] for Pulmonology and critical care services. Subjective/Events-last exam Pt remains intubated and sedated. Still high PEP and oxygen requiring. Focused Exam Lactate Level 05/16/20 15:22: Lactic Acid Level 1.78 Objective Exam Vital Signs Vital Signs Date Time Temp Pulse Resp B/P (MAP) Pulse Ox O2 Delivery O2 Flow Rate FiO2 05/19/20 08:51 80 133/68 05/19/20 07:07 26 95 75 05/19/20 06:11 Mechanical Ventilator 75.00 05/19/20 04:00 36.3 Capillary Refill : Less Than 3 Seconds General Appearance: Obese, Other (intubated in prone position) Respiratory: Other (intubated, coarse breath sounds throughout) Cardiovascular: Regular Rate, Rhythm, No Murmur Gastrointestinal: Normal Bowel Sounds Neurologic/Psychiatric: Other (sedated, appears comfortable) Results/Procedures Lab Laboratory Tests 05/19/20 03:15 Patient resulted labs reviewed. Assessment/Plan Assessment and Plan Assess & Plan/Chief Complaint COVID + /influena A with acute respiratory failure and ARDS -PEEP 16, FiO2 of 75% -S/p tamiflu for Flu A and 2 units of convalescent plasma at [facility] -Continue Remdesivir day 4/5 -decadron 20mg -Start TF with pulmicare at 15cc/hr - Trophic feeds -s/p Convalescent plasma x 2 at [facility] -proning at shift changes secondary to high BMI -BiPAP PRN Pancytopenia -Check DIC panel yesterday- negative - Apparently chronic and follows with Dr Stone as an outpatient Obesity with probable DENNIS hx of brain surgery and seizures -On Keppra and Phenytoin - Versed for sedation preferably -Seizure precautions -PRN Ativan Hypokalemia -Resolved, continue on protocol NIDDMII Elevated blood sugars exacerbated by steroids SSI GI and DVT PPX with Protonix and Lovenox Clinical Quality Measures DVT/VTE Risk/Contraindication: Risk Factor Score Per Nursin RFS Level Per Nursing on Admit: 4+=Very High GREGG TOWNSEND MD May 19, 2020 09:12
[2020-05-19] MEDS: PHENYTOIN IV SCH ×6 (09:14→20:00)
[2020-05-19] MEDS: MICRON FILTER IV SCH ×6 (09:14→20:00)
[2020-05-19] MEDS: NS IV SCH ×6 (09:14→20:00)
[2020-05-19] MEDS: REMDESIVIR INJ 100 MG in NS (IVPB) 230 ML IV SCH (11:39)
--- NOTE | 2020-05-19 14:37 | NUR ---
"TF ASSESSMENT Est kcal needs: 1650 kcal | 25 kcal/kg IBW, based on IBW of 65.9 kg (145#) Est Pro needs: 66 g Pro | 1.0 g Pro/kg IBW Note pt is currently intubated/sedated, per chart review. Note pt currently receiving Pulmocare 1.5 kcal at rate of 15ml/hr, with no flushes. At current rate, provides 540 kcal (3 kcal/kg BW); 23 g Pro (0.1 g Pro/kg BW); and 283ml free water. Would recommend continuation toward goal rate of 45ml/hr. Would recommend increase by 10ml q6h as medically able and as tolerated. Monitor gastric residuals for tolerance. At goal rate, provides 1620 kcal (10 kcal/kg BW); 68 g Pro (0.4 g Pro/kg BW); and 848ml free water. Flush with 25ml q4h for hydration status and to prevent tube from clogging. With flushes, provides 998ml free water. Will continue to follow and reassess as pt needs, intake, and status change. Kel Diaz MS RD LD [phone] (cell)"
[2020-05-20] VITALS (31 sets, daily range): BP systolic 114–165; BP diastolic 62–81
[2020-05-20] MEDS: PROPOFOL DRIP (ICU) 100 ML IV SCH ×8 (00:39→22:59)
[2020-05-20] MEDS: inSUlin ASPART (NovoLOG) 1 UNIT/0.01 ML (CHARGE PER UNIT) SQ SCH ×5 (00:40→23:02)
[2020-05-20] MEDS: LORazepam INJ 2 MG/ML (ATIVAN) VIAL IVP PRN (00:40)
[2020-05-20] MEDS: CEFEPIME INJECTION 1,000 MG in WATER (STERILE) FOR INJECTION 10 ML IV SCH ×5 (00:40→22:59)
[2020-05-20 00:45] LABS: BILIRUBIN,URINE NEGATIVE (NEGATIVE); CLARITY,URINE CLEAR; COLOR,URINE YELLOW; GLUCOSE, URINE (UA) 1+ (NEGATIVE); KETONES,URINE 1+ (NEGATIVE); LEUKOCYTE ESTERASE ,URINE NEGATIVE (NEGATIVE); NITRITE,URINE NEGATIVE (NEGATIVE); PROTEIN,URINE NEGATIVE (NEGATIVE)
--- NOTE | 2020-05-20 00:45 | NUR ---
PT SUPINED AT THIS TIME, TOLERATED WELL.
[2020-05-20 00:56] LABS: BACTERIA,URINE TRACE /HPF
[2020-05-20 00:57] LABS: AMORPHOUS SEDIMENT,UR FEW AMOR URATES /LPF
[2020-05-20 00:58] LABS: YEAST,URINE LARGE /HPF
[2020-05-20] MEDS: ENOXAPARIN 60 MG/0.6 ML (LOVENOX) SYR SC SCH ×2 (02:00→11:54)
[2020-05-20 02:40] LABS: ABG BASE EXCESS 1.3 MMOL/L (-2.5-2.5); ABG OXYGEN SATURATION 97 % (94-100); ABG PCO2 44 MMHG (35-45); ABG PH 7.39 (7.37-7.43); ABG PO2 80 MMHG (79-93); ABG TCO2 27.1 MMOL/L (21.0-31.0)
[2020-05-20 02:48] LABS: ALLENS TEST POS; INSPIRED O2 60%
[2020-05-20 02:49] LABS: PATIENT TEMP 36.8; VENTILATOR YES
[2020-05-20 02:51] LABS: ALBUMIN 2.8 GM/DL (3.2-4.5); CHLORIDE 107 MMOL/L (98-107); POTASSIUM 3.7 MMOL/L (3.6-5.0); SODIUM 141 MMOL/L (135-145)
[2020-05-20 02:52] LABS: CALCIUM 7.6 MG/DL (8.5-10.1)
[2020-05-20 02:53] LABS: GLUCOSE 145 MG/DL (70-105)
[2020-05-20 02:54] LABS: TOTAL PROTEIN 6.2 GM/DL (6.4-8.2)
[2020-05-20 02:55] LABS: BILIRUBIN,TOTAL 0.6 MG/DL (0.1-1.0); CARBON DIOXIDE 22 MMOL/L (21-32)
[2020-05-20 02:57] LABS: ALKALINE PHOSPHATASE 95 U/L (40-136); CREATININE SERUM 0.53 MG/DL (0.60-1.30); GFR ESTIMATED > 60; PHOSPHORUS 1.5 MG/DL (2.3-4.7)
[2020-05-20 02:58] LABS: BUN/CREATININE RATIO 13
[2020-05-20 03:00] LABS: ALANINE AMINOTRANSFERASE 24 U/L (0-55); MAGNESIUM 2.1 MG/DL (1.6-2.4)
[2020-05-20 03:13] LABS: BASOPHILS % (AUTO) 0 % (0-10); EOSINOPHILS % (AUTO) 0 % (0-10); HEMATOCRIT 35 % (35-52); HEMOGLOBIN 10.9 g/dL (11.5-16.0); LYMPHOCYTES # (AUTO) 0.5 10^3/uL (1.0-4.0); LYMPHOCYTES % (AUTO) 15 % (12-44); MEAN CORPUSCULAR HEMOGLOBIN 31 pg (25-34); MEAN CORPUSCULAR HGB CONC 32 g/dL (32-36); MEAN CORPUSCULAR VOLUME 97 fL (80-99); MEAN PLATELET VOLUME 10.9 fL (9.0-12.2); MONOCYTES # (AUTO) 0.3 10^3/uL (0.0-1.0); MONOCYTES % (AUTO) 8 % (0-12); NEUTROPHILS # (AUTO) 2.7 10^3/uL (1.8-7.8); NEUTROPHILS % (AUTO) 73 % (42-75); PLATELET COUNT 95 10^3/uL (130-400); WHITE BLOOD COUNT 3.7 10^3/uL (4.3-11.0)
[2020-05-20] MEDS: MIDAZOLAM INJECTION FOR DRIPS 50 MG in NS (IVPB) 90 ML IV SCH ×3 (04:14→23:11)
[2020-05-20] MEDS: POTASSIUM CL 10MEQ/50ML IVPB 50 ML IV SCH (04:23)
[2020-05-20] MEDS: MAGNESIUM 1 GM/100 ML IVPB 100 ML IV SCH (04:23)
[2020-05-20] MEDS: KCL 20 MEQ TAB (K-DUR) PO SCH (04:24)
[2020-05-20] MEDS: VANCOMYCIN 1500 MG/NS 500 ML IVPB IV SCH ×4 (05:49→13:52)
[2020-05-20] MEDS: LACTATED RINGERS 1,000 ML IV SCH (05:49)
[2020-05-20] MEDS: fentaNYL INJECTION 1,250 MCG in NS (IVPB) 250 ML IV SCH ×3 (06:08→21:31)
[2020-05-20] MEDS: RT-ALBUTEROL INHALER HFA (VENTOLIN HFA) 18 GM IH SCH ×3 (06:57→22:09)
[2020-05-20] MEDS: PHENYTOIN IV SCH ×6 (08:49→19:29)
[2020-05-20] MEDS: NS IV SCH ×6 (08:49→19:29)
[2020-05-20] MEDS: MICRON FILTER IV SCH ×6 (08:49→19:29)
[2020-05-20] MEDS: dexAMETHasone INJECTION 20 MG in NS (IVPB) 50 ML IV SCH (08:49)
[2020-05-20] MEDS: VENLAFAXINE 50 MG (EFFEXOR) TABLET PO SCH ×2 (08:49→19:29)
[2020-05-20] MEDS: LEVETIRACETAM INJECTION 1,500 MG in NS (IVPB) 100 ML IV SCH ×2 (08:49→19:29)
[2020-05-20] MEDS: PANTOPRAZOLE 40 MG (PROTONIX) VIAL IV SCH (08:49)
--- NOTE | 2020-05-20 09:39 | Progress Note - Hospitalist ---
Subjective HPI/CC On Admission Date Seen by Provider: May 20, 2020 Time Seen by Provider: 09:33 CC: Worsening COVID-19 condition requiring transfer to higher level from [facility] [place] HPI: This is a 55yoWF clinic patient of [facility] who presents following a 5 day course at [facility] [place] after she was admitted presumptive COVID on Sunday along with Flu A placed on Tamiflu until COVID swab confirmed so Decadron was started along with convalescent plasma but started to worsen with higher fevers requiring initiation of Vanc and Cefepime for elevated PCT at 0.22. Vapotherm was started yesterday afternoon and this am she once again had decreased O2 sats and appeared to be worsening prompting transfer to [facility] for Pulmonology and critical care services. Subjective/Events-last exam Pt remains intubated and sedated. Discussed with RN. Rohit some overnight. Now doing well supine. Objective Exam Vital Signs Vital Signs Date Time Temp Pulse Resp B/P (MAP) Pulse Ox O2 Delivery O2 Flow Rate FiO2 05/20/20 09:06 37.4 05/20/20 08:00 90 26 114/63 (80) 94 Mechanical Ventilator 60.00 05/20/20 06:59 60 Capillary Refill : Less Than 3 Seconds General Appearance: Chronically ill, Obese, Other (intubated and sedated) Respiratory: Decreased Breath Sounds, Rhonci, Other (on vent) Cardiovascular: Regular Rate, Rhythm, No Murmur Gastrointestinal: Normal Bowel Sounds, Non Tender, Soft Genital/Rectal: Other (meehan in place) Extremity: Pedal Edema Neurologic/Psychiatric: Other (sedated, appears comfortable) Results/Procedures Lab Laboratory Tests 05/20/20 02:20 Patient resulted labs reviewed. Assessment/Plan Assessment and Plan Assess & Plan/Chief Complaint COVID + /influenza A with acute respiratory failure and ARDS -PEEP 16, FiO2 of 60% today -S/p tamiflu for Flu A and 2 units of convalescent plasma at [facility] [place] -Continue Remdesivir day 4/5 -decadron 20mg -Continue TF with pulmicare at 15cc/hr - Trophic feeds -s/p Convalescent plasma x 2 at [facility] [place] -proning at shift changes secondary to high BMI -BiPAP PRN Pancytopenia - Apparently chronic and follows with Dr Stone as an outpatient Obesity with probable DENNIS hx of brain surgery and seizures - On Keppra and Phenytoin - Versed for sedation preferably - Seizure precautions - PRN Ativan Hypokalemia -Resolved, continue on protocol NIDDMII Elevated blood sugars exacerbated by steroids SSI GI and DVT PPX with Protonix and Lovenox Disposition: Unable to reach family yesterday. Discussed with social work who will call again today. May need transfer to LTACH at some point given continued high vent settings and weaning not yet insight at this time. Diagnosis/Problems Diagnosis/Problems (1) Acute respiratory failure Status: Acute Qualifiers: Respiratory failure complication: hypoxia Qualified Codes: J96.01 - Acute respiratory failure with hypoxia (2) Seizure disorder Status: Chronic (3) COVID-19 Status: Acute (4) ARDS (adult respiratory distress syndrome) Clinical Quality Measures DVT/VTE Risk/Contraindication: Risk Factor Score Per Nursin RFS Level Per Nursing on Admit: 4+=Very High GREGG TOWNSEND MD May 20, 2020 09:39
[2020-05-20] MEDS: FUROSEMIDE 40 MG/4 ML INJ (LASIX) IVP SCH ×2 (11:54→21:24)
[2020-05-20] MEDS: REMDESIVIR INJ 100 MG in NS (IVPB) 230 ML IV SCH (11:54)
[2020-05-20 12:09] LABS: BILIRUBIN,URINE 1+ (NEGATIVE); CLARITY,URINE CLOUDY; COLOR,URINE YELLOW; GLUCOSE, URINE (UA) 3+ (NEGATIVE); KETONES,URINE 3+ (NEGATIVE); LEUKOCYTE ESTERASE ,URINE NEGATIVE (NEGATIVE); NITRITE,URINE NEGATIVE (NEGATIVE); PROTEIN,URINE 1+ (NEGATIVE)
[2020-05-20 12:18] LABS: BACTERIA,URINE FEW /HPF; RBC,URINE >100 /HPF
[2020-05-20 12:19] LABS: YEAST,URINE LARGE /HPF
[2020-05-20] MEDS ORDERED: TROUGH ORDER-PHARMACY XX ONE (13:00)
--- NOTE | 2020-05-20 14:28 | NUR ---
"TF FOLLOW-UP Est kcal needs: 1650 kcal | 25 kcal/kg IBW, based on IBW of 65.9 kg (145#) Est Pro needs: 66 g Pro | 1.0 g Pro/kg IBW Note pt is currently intubated/sedated, per chart review. Note pt currently receiving Pulmocare 1.5 kcal at rate of 15ml/hr, with no flushes. At current rate, provides 540 kcal (3 kcal/kg BW); 23 g Pro (0.1 g Pro/kg BW); and 283ml free water. Would recommend continuation toward goal rate of 45ml/hr. Would recommend increase by 10ml q6h as medically able and as tolerated. Monitor gastric residuals for tolerance. At goal rate, provides 1620 kcal (10 kcal/kg BW); 68 g Pro (0.4 g Pro/kg BW); and 848ml free water. Flush with 25ml q4h for hydration status and to prevent tube from clogging. With flushes, provides 998ml free water. Request that TF order be placed into chart. Will continue to follow and reassess as pt needs, intake, and status change. Kel Diaz, MS RD LD [phone] (cell)"
[2020-05-20] MEDS: VANCOMYCIN INJECTION 1,250 MG in NS (IVPB) 250 ML IV SCH (21:24)
[2020-05-21] VITALS (28 sets, daily range): BP systolic 100–141; BP diastolic 56–75
[2020-05-21] MEDS: ENOXAPARIN 60 MG/0.6 ML (LOVENOX) SYR SC SCH ×2 (01:07→11:29)
[2020-05-21 01:13] LABS: ABG BASE EXCESS 7.9 MMOL/L (-2.5-2.5); ABG OXYGEN SATURATION 95 % (94-100); ABG PCO2 50 MMHG (35-45); ABG PH 7.43 (7.37-7.43); ABG PO2 76 MMHG (79-93); ABG TCO2 33.7 MMOL/L (21.0-31.0)
--- NOTE | 2020-05-21 01:18 | NUR ---
pt placed in supine position at this time. pt tolerated position change well. tube feeds started with pulmocare at 15ml/hr at this time.
[2020-05-21 01:19] LABS: ALLENS TEST POSITIVE; INSPIRED O2 60; VENTILATOR YES
[2020-05-21] MEDS: RT-ALBUTEROL INHALER HFA (VENTOLIN HFA) 18 GM IH SCH ×4 (01:26→19:05)
[2020-05-21] MEDS: LACTATED RINGERS 1,000 ML IV SCH ×2 (01:30→17:14)
[2020-05-21] MEDS: PROPOFOL DRIP (ICU) 100 ML IV SCH ×7 (01:31→23:36)
[2020-05-21 02:13] LABS: ALBUMIN 2.6 GM/DL (3.2-4.5); CHLORIDE 104 MMOL/L (98-107); POTASSIUM 3.2 MMOL/L (3.6-5.0); SODIUM 143 MMOL/L (135-145)
[2020-05-21 02:14] LABS: CALCIUM 7.7 MG/DL (8.5-10.1)
[2020-05-21 02:15] LABS: TRIGLYCERIDES 339 MG/DL (<150)
[2020-05-21 02:16] LABS: GLUCOSE 141 MG/DL (70-105)
[2020-05-21 02:17] LABS: CARBON DIOXIDE 28 MMOL/L (21-32)
[2020-05-21 02:18] LABS: BILIRUBIN,TOTAL 0.6 MG/DL (0.1-1.0)
[2020-05-21 02:19] LABS: ALKALINE PHOSPHATASE 89 U/L (40-136); CREATININE SERUM 0.52 MG/DL (0.60-1.30); GFR ESTIMATED > 60; PHOSPHORUS 1.3 MG/DL (2.3-4.7)
[2020-05-21 02:20] LABS: BASOPHILS % (AUTO) 0 % (0-10); BUN/CREATININE RATIO 12; EOSINOPHILS % (AUTO) 1 % (0-10); HEMOGLOBIN 10.7 g/dL (11.5-16.0)
[2020-05-21 02:22] LABS: ALANINE AMINOTRANSFERASE 22 U/L (0-55); HEMATOCRIT 33 % (35-52); LYMPHOCYTES # (AUTO) 0.6 10^3/uL (1.0-4.0); LYMPHOCYTES % (AUTO) 18 % (12-44); MAGNESIUM 1.7 MG/DL (1.6-2.4); MEAN CORPUSCULAR HEMOGLOBIN 31 pg (25-34); MEAN CORPUSCULAR HGB CONC 32 g/dL (32-36); MEAN CORPUSCULAR VOLUME 95 fL (80-99); MEAN PLATELET VOLUME 10.5 fL (9.0-12.2); MONOCYTES # (AUTO) 0.3 10^3/uL (0.0-1.0); MONOCYTES % (AUTO) 8 % (0-12); NEUTROPHILS # (AUTO) 2.4 10^3/uL (1.8-7.8); NEUTROPHILS % (AUTO) 68 % (42-75); PLATELET COUNT 98 10^3/uL (130-400); WHITE BLOOD COUNT 3.5 10^3/uL (4.3-11.0)
[2020-05-21] MEDS: POTASSIUM CL 10MEQ/50ML IVPB 50 ML IV SCH ×3 (02:43→03:36)
[2020-05-21] MEDS: MAGNESIUM 1 GM/100 ML IVPB 100 ML IV SCH (02:43)
[2020-05-21] MEDS: KCL 20 MEQ TAB (K-DUR) PO SCH (02:43)
[2020-05-21] MEDS: inSUlin ASPART (NovoLOG) 1 UNIT/0.01 ML (CHARGE PER UNIT) SQ SCH ×4 (04:33→23:15)
[2020-05-21] MEDS: CEFEPIME INJECTION 1,000 MG in WATER (STERILE) FOR INJECTION 10 ML IV SCH ×4 (04:41→22:16)
[2020-05-21] MEDS: VANCOMYCIN INJECTION 1,250 MG in NS (IVPB) 250 ML IV SCH (04:46)
[2020-05-21] MEDS: fentaNYL INJECTION 1,250 MCG in NS (IVPB) 250 ML IV SCH ×2 (04:52→19:52)
[2020-05-21] MEDS: MIDAZOLAM INJECTION FOR DRIPS 50 MG in NS (IVPB) 90 ML IV SCH ×2 (05:35→22:16)
[2020-05-21] MEDS: LEVETIRACETAM INJECTION 1,500 MG in NS (IVPB) 100 ML IV SCH ×2 (08:54→19:30)
[2020-05-21] MEDS: PANTOPRAZOLE 40 MG (PROTONIX) VIAL IV SCH (08:55)
[2020-05-21] MEDS: MICRON FILTER IV SCH ×6 (08:56→19:30)
[2020-05-21] MEDS: PHENYTOIN IV SCH ×6 (08:56→19:30)
[2020-05-21] MEDS: FUROSEMIDE 40 MG/4 ML INJ (LASIX) IVP SCH (08:56)
[2020-05-21] MEDS: NS IV SCH ×6 (08:56→19:30)
[2020-05-21] MEDS: dexAMETHasone INJECTION 20 MG in NS (IVPB) 50 ML IV SCH (08:56)
[2020-05-21] MEDS: VENLAFAXINE 50 MG (EFFEXOR) TABLET PO SCH ×2 (08:56→19:30)
[2020-05-21] MEDS ORDERED: NS IV 500 ML 500 ML IV SCH (09:06)
[2020-05-21] MEDS ORDERED: REMDESIVIR INJ 200 MG in NS (IVPB) 210 ML IV ONE (09:15)
--- NOTE | 2020-05-21 09:15 | NUR ---
Pt has been disabled for several years but has been able to remain in her home with 30 hours weekly in-home care provided by agency workers through her [employer] insurance. She has a casemanager who will assist with continued care needs. Her name is Monalisa Bautista and can be reached at [phone]. Her 15 year old granddaugher also lives with her. she has two daughters Flakita and Leidy and can be reached at [phone]
--- NOTE | 2020-05-21 09:54 | Progress Note - Hospitalist ---
Subjective HPI/CC On Admission Date Seen by Provider: May 21, 2020 Time Seen by Provider: 09:49 CC: Worsening COVID-19 condition requiring transfer to higher level from [facility] HPI: This is a 55yoWF clinic patient of [facility] who presents following a 5 day course at [facility] after she was admitted presumptive COVID on Sunday along with Flu A placed on Tamiflu until COVID swab confirmed so Decadron was started along with convalescent plasma but started to worsen with higher fevers requiring initiation of Vanc and Cefepime for elevated PCT at 0.22. Vapotherm was started yesterday afternoon and this am she once again had decreased O2 sats and appeared to be worsening prompting transfer to [facility] for Pulmonology and critical care services. Subjective/Events-last exam Pt is intubated and sedated. No ROS possible. RN reports had a good night and FiO2 decreasing. Objective Exam Vital Signs Vital Signs Date Time Temp Pulse Resp B/P (MAP) Pulse Ox O2 Delivery O2 Flow Rate FiO2 05/21/20 09:00 105 25 141/72 (95) 96 Mechanical Ventilator 50.00 05/21/20 08:11 50 05/21/20 02:08 37.0 Capillary Refill : Less Than 3 Seconds General Appearance: Chronically ill, Obese, Other (intubated, on vent) Respiratory: Rhonci; No Wheezing; Other (on vent) Cardiovascular: Regular Rate, Rhythm, No Murmur Gastrointestinal: Normal Bowel Sounds, Non Tender, Soft Extremity: No Calf Tenderness, Pedal Edema Neurologic/Psychiatric: Other (sedated, appears comfortable, does not follow commands) Skin: Tattoos/Piercings Results/Procedures Lab Laboratory Tests 05/21/20 01:39 Patient resulted labs reviewed. Assessment/Plan Assessment and Plan Assess & Plan/Chief Complaint COVID + /influenza A with acute respiratory failure and ARDS -PEEP 16, FiO2 of 60% today -S/p tamiflu for Flu A and 2 units of convalescent plasma at [facility] -Continue Remdesivir day 4/5 -decadron 20mg -Continue TF with pulmicare at 15cc/hr - Trophic feeds -s/p Convalescent plasma x 2 at [facility] -proning at shift changes secondary to high BMI -BiPAP PRN Pancytopenia - Apparently chronic and follows with Dr Stone as an outpatient Obesity with probable DENNIS hx of brain surgery and seizures - On Keppra and Phenytoin - Versed for sedation preferably - Seizure precautions - PRN Ativan Hypokalemia -Resolved, continue on protocol NIDDMII - Fasting BS - SSI GI and DVT PPX with Protonix and Lovenox Diagnosis/Problems Diagnosis/Problems (1) Acute respiratory failure Status: Acute Qualifiers: Respiratory failure complication: hypoxia Qualified Codes: J96.01 - Acute respiratory failure with hypoxia (2) Seizure disorder Status: Chronic (3) COVID-19 Status: Acute (4) ARDS (adult respiratory distress syndrome) Clinical Quality Measures DVT/VTE Risk/Contraindication: Risk Factor Score Per Nursin RFS Level Per Nursing on Admit: 4+=Very High GREGG TOWNSEND MD May 21, 2020 09:54
[2020-05-22] VITALS (31 sets, daily range): BP systolic 115–164; BP diastolic 61–91
[2020-05-22] MEDS: ENOXAPARIN 60 MG/0.6 ML (LOVENOX) SYR SC SCH ×2 (01:11→13:04)
[2020-05-22] MEDS: RT-ALBUTEROL INHALER HFA (VENTOLIN HFA) 18 GM IH SCH ×4 (02:04→18:37)
[2020-05-22 02:07] LABS: BASOPHILS % (AUTO) 0 % (0-10); EOSINOPHILS % (AUTO) 1 % (0-10); HEMATOCRIT 32 % (35-52); HEMOGLOBIN 10.3 g/dL (11.5-16.0); MEAN CORPUSCULAR HGB CONC 32 g/dL (32-36)
[2020-05-22 02:08] LABS: LYMPHOCYTES # (AUTO) 0.6 10^3/uL (1.0-4.0); LYMPHOCYTES % (AUTO) 20 % (12-44); MEAN CORPUSCULAR HEMOGLOBIN 31 pg (25-34); MEAN CORPUSCULAR VOLUME 96 fL (80-99); MEAN PLATELET VOLUME 10.5 fL (9.0-12.2); MONOCYTES # (AUTO) 0.2 10^3/uL (0.0-1.0); MONOCYTES % (AUTO) 6 % (0-12); NEUTROPHILS % (AUTO) 68 % (42-75); PLATELET COUNT 84 10^3/uL (130-400); WHITE BLOOD COUNT 2.9 10^3/uL (4.3-11.0)
[2020-05-22 02:13] LABS: ABG BASE EXCESS 8.9 MMOL/L (-2.5-2.5); ABG OXYGEN SATURATION 75 % (94-100); ABG PCO2 48 MMHG (35-45); ABG PH 7.45 (7.37-7.43); ABG PO2 40 MMHG (79-93); ABG TCO2 34.8 MMOL/L (21.0-31.0); ALLENS TEST POSITIVE; INSPIRED O2 26; PATIENT TEMP 36.5; VENTILATOR YES
[2020-05-22] MEDS: fentaNYL INJECTION 1,250 MCG in NS (IVPB) 250 ML IV SCH ×3 (02:15→19:02)
[2020-05-22 02:18] LABS: ALBUMIN 2.6 GM/DL (3.2-4.5); CHLORIDE 105 MMOL/L (98-107); POTASSIUM 3.5 MMOL/L (3.6-5.0); SODIUM 146 MMOL/L (135-145)
[2020-05-22 02:20] LABS: CALCIUM 7.9 MG/DL (8.5-10.1)
[2020-05-22 02:21] LABS: GLUCOSE 147 MG/DL (70-105); TOTAL PROTEIN 6.1 GM/DL (6.4-8.2)
[2020-05-22 02:22] LABS: CARBON DIOXIDE 29 MMOL/L (21-32)
[2020-05-22 02:23] LABS: BILIRUBIN,TOTAL 0.6 MG/DL (0.1-1.0)
[2020-05-22 02:24] LABS: ALKALINE PHOSPHATASE 94 U/L (40-136); PHOSPHORUS 1.7 MG/DL (2.3-4.7)
[2020-05-22 02:25] LABS: GFR ESTIMATED > 60
[2020-05-22 02:26] LABS: BUN/CREATININE RATIO 18
[2020-05-22 02:27] LABS: ALANINE AMINOTRANSFERASE 19 U/L (0-55); MAGNESIUM 1.8 MG/DL (1.6-2.4)
[2020-05-22] MEDS: MAGNESIUM 1 GM/100 ML IVPB 100 ML IV SCH (02:43)
[2020-05-22] MEDS: KCL 20 MEQ TAB (K-DUR) PO SCH (02:43)
[2020-05-22] MEDS: POTASSIUM CL 10MEQ/50ML IVPB 50 ML IV SCH ×3 (02:43→03:18)
[2020-05-22] MEDS: MIDAZOLAM INJECTION FOR DRIPS 50 MG in NS (IVPB) 90 ML IV SCH ×2 (04:11→19:01)
[2020-05-22] MEDS: PROPOFOL DRIP (ICU) 100 ML IV SCH ×5 (04:11→23:10)
[2020-05-22] MEDS: CEFEPIME INJECTION 1,000 MG in WATER (STERILE) FOR INJECTION 10 ML IV SCH ×4 (04:17→23:10)
[2020-05-22] MEDS: inSUlin ASPART (NovoLOG) 1 UNIT/0.01 ML (CHARGE PER UNIT) SQ SCH ×4 (06:03→23:10)
[2020-05-22] MEDS: LEVETIRACETAM INJECTION 1,500 MG in NS (IVPB) 100 ML IV SCH ×2 (08:14→19:52)
[2020-05-22] MEDS: dexAMETHasone INJECTION 20 MG in NS (IVPB) 50 ML IV SCH (08:14)
[2020-05-22] MEDS: VENLAFAXINE 50 MG (EFFEXOR) TABLET PO SCH ×2 (08:15→19:52)
[2020-05-22] MEDS: NS IV SCH ×6 (08:15→19:51)
[2020-05-22] MEDS: MICRON FILTER IV SCH ×6 (08:15→19:51)
[2020-05-22] MEDS: PHENYTOIN IV SCH ×6 (08:15→19:51)
[2020-05-22] MEDS: FUROSEMIDE 40 MG/4 ML INJ (LASIX) IVP SCH (08:15)
[2020-05-22] MEDS: PANTOPRAZOLE 40 MG (PROTONIX) VIAL IV SCH (08:15)
[2020-05-22] MEDS ORDERED: REMDESIVIR INJ 100 MG in NS (IVPB) 230 ML IV SCH (09:15)
--- NOTE | 2020-05-22 09:57 | Progress Note - Hospitalist ---
Subjective HPI/CC On Admission Date Seen by Provider: May 22, 2020 Time Seen by Provider: 09:52 CC: Worsening COVID-19 condition requiring transfer to higher level from [facility] HPI: This is a 55yoWF clinic patient of [facility] who presents following a 5 day course at [facility] after she was admitted presumptive COVID on Sunday along with Flu A placed on Tamiflu until COVID swab confirmed so Decadron was started along with convalescent plasma but started to worsen with higher fevers requiring initiation of Vanc and Cefepime for elevated PCT at 0.22. Vapotherm was started yesterday afternoon and this am she once again had decreased O2 sats and appeared to be worsening prompting transfer to [facility] for Pulmonology and critical care services. Subjective/Events-last exam Pt remains intubated and sedated. No ROS possible. Objective Exam Vital Signs Vital Signs Date Time Temp Pulse Resp B/P (MAP) Pulse Ox O2 Delivery O2 Flow Rate FiO2 05/22/20 09:00 91 135/71 (92) 91 Mechanical Ventilator 55.00 05/22/20 07:52 26 50 05/22/20 02:48 36.0 Capillary Refill : Less Than 3 Seconds General Appearance: Chronically ill, Obese Respiratory: Rhonci, Other (on vent) Cardiovascular: Regular Rate, Rhythm, No Murmur Gastrointestinal: Normal Bowel Sounds, Non Tender, Soft Genital/Rectal: Other (meehan in place) Extremity: Pedal Edema, Swelling Neurologic/Psychiatric: Other (sedated, appears comortable) Results/Procedures Lab Laboratory Tests 05/22/20 01:59 Patient resulted labs reviewed. Assessment/Plan Assessment and Plan Assess & Plan/Chief Complaint COVID + /influenza A with acute respiratory failure and ARDS -PEEP 14, FiO2 of 55% today, I personally increased FiO2 while at [facility] due to sats of 87-88% -S/p tamiflu for Flu A and 2 units of convalescent plasma at [facility] -Continue Remdesivir day 5/5 -decadron 20mg -Continue TF with pulmicare at 15cc/hr - Trophic feeds -s/p Convalescent plasma x 2 at [facility] -proning at shift changes secondary to high BMI - I called and spoke with daughter about status and potential need for LTACH if not able to wean over the next week or so, daughter states that pt would be ok with a few weeks of intubation but does not want a trach, she is agreeable to LTACH if needed though Pancytopenia - Apparently chronic and follows with Dr Stone as an outpatient Obesity with probable DENNIS hx of brain surgery and seizures - On Keppra and Phenytoin - Versed for sedation preferably - Seizure precautions - PRN Ativan Hypokalemia -Resolved, continue on protocol NIDDMII - Fasting BS - SSI GI and DVT PPX with Protonix and Lovenox Diagnosis/Problems Diagnosis/Problems (1) Acute respiratory failure Status: Acute Qualifiers: Respiratory failure complication: hypoxia Qualified Codes: J96.01 - Acute respiratory failure with hypoxia (2) Seizure disorder Status: Chronic (3) COVID-19 Status: Acute (4) ARDS (adult respiratory distress syndrome) Clinical Quality Measures DVT/VTE Risk/Contraindication: Risk Factor Score Per Nursin RFS Level Per Nursing on Admit: 4+=Very High GREGG TOWNSEND MD May 22, 2020 09:57
[2020-05-22] MEDS: MICONAZOLE 2% POWDER (DESENEX AF) 90 GM TOP SCH (19:52)
[2020-05-22] MEDS: LACTATED RINGERS 1,000 ML IV SCH (20:10)
[2020-05-23] VITALS (30 sets, daily range): BP systolic 117–169; BP diastolic 60–83
[2020-05-23] MEDS: RT-ALBUTEROL INHALER HFA (VENTOLIN HFA) 18 GM IH SCH ×4 (01:12→18:36)
[2020-05-23] MEDS: MIDAZOLAM INJECTION FOR DRIPS 50 MG in NS (IVPB) 90 ML IV SCH ×4 (01:16→20:13)
[2020-05-23] MEDS: ENOXAPARIN 60 MG/0.6 ML (LOVENOX) SYR SC SCH ×3 (01:16→23:39)
[2020-05-23] MEDS: fentaNYL INJECTION 1,250 MCG in NS (IVPB) 250 ML IV SCH ×3 (01:30→20:31)
[2020-05-23 01:33] LABS: BASOPHILS % (AUTO) 0 % (0-10); EOSINOPHILS % (AUTO) 1 % (0-10); HEMATOCRIT 33 % (35-52); HEMOGLOBIN 10.7 g/dL (11.5-16.0); LYMPHOCYTES # (AUTO) 0.7 10^3/uL (1.0-4.0); LYMPHOCYTES % (AUTO) 24 % (12-44); MEAN CORPUSCULAR HEMOGLOBIN 31 pg (25-34); MEAN CORPUSCULAR HGB CONC 32 g/dL (32-36); MEAN CORPUSCULAR VOLUME 97 fL (80-99); MEAN PLATELET VOLUME 10.9 fL (9.0-12.2); MONOCYTES # (AUTO) 0.2 10^3/uL (0.0-1.0); MONOCYTES % (AUTO) 5 % (0-12); NEUTROPHILS # (AUTO) 1.9 10^3/uL (1.8-7.8); NEUTROPHILS % (AUTO) 65 % (42-75); PLATELET COUNT 76 10^3/uL (130-400)
[2020-05-23 01:34] LABS: ABG BASE EXCESS 8.9 MMOL/L (-2.5-2.5); ABG OXYGEN SATURATION 93 % (94-100); ABG PCO2 49 MMHG (35-45); ABG PH 7.45 (7.37-7.43); ABG PO2 63 MMHG (79-93); ABG TCO2 34.9 MMOL/L (21.0-31.0)
[2020-05-23 01:35] LABS: ALLENS TEST POSITIVE; INSPIRED O2 50; PATIENT TEMP 36.6; VENTILATOR YES
[2020-05-23 01:54] LABS: CHLORIDE 104 MMOL/L (98-107); POTASSIUM 3.7 MMOL/L (3.6-5.0); SODIUM 145 MMOL/L (135-145)
[2020-05-23 01:56] LABS: GLUCOSE 147 MG/DL (70-105)
[2020-05-23 01:58] LABS: CARBON DIOXIDE 31 MMOL/L (21-32)
[2020-05-23 02:00] LABS: CREATININE SERUM 0.52 MG/DL (0.60-1.30); GFR ESTIMATED > 60
[2020-05-23 02:01] LABS: BUN/CREATININE RATIO 21
[2020-05-23 02:02] LABS: MAGNESIUM 1.7 MG/DL (1.6-2.4)
[2020-05-23] MEDS: POTASSIUM CL 10MEQ/50ML IVPB 50 ML IV SCH (02:03)
[2020-05-23] MEDS: MAGNESIUM 1 GM/100 ML IVPB 100 ML IV SCH (02:04)
[2020-05-23] MEDS: KCL 20 MEQ TAB (K-DUR) PO SCH (02:04)
[2020-05-23] MEDS: PROPOFOL DRIP (ICU) 100 ML IV SCH ×2 (05:08→09:59)
[2020-05-23] MEDS: inSUlin ASPART (NovoLOG) 1 UNIT/0.01 ML (CHARGE PER UNIT) SQ SCH ×4 (05:09→23:38)
[2020-05-23] MEDS: CEFEPIME INJECTION 1,000 MG in WATER (STERILE) FOR INJECTION 10 ML IV SCH ×4 (05:09→23:39)
[2020-05-23] MEDS: VENLAFAXINE 50 MG (EFFEXOR) TABLET PO SCH ×3 (08:11→20:48)
[2020-05-23] MEDS: LEVETIRACETAM INJECTION 1,500 MG in NS (IVPB) 100 ML IV SCH ×2 (08:11→20:12)
[2020-05-23] MEDS: MICONAZOLE 2% POWDER (DESENEX AF) 90 GM TOP SCH ×2 (08:11→20:19)
[2020-05-23] MEDS: dexAMETHasone INJECTION 20 MG in NS (IVPB) 50 ML IV SCH (08:11)
[2020-05-23] MEDS: FUROSEMIDE 40 MG/4 ML INJ (LASIX) IVP SCH (08:11)
[2020-05-23] MEDS: MICRON FILTER IV SCH ×6 (08:12→20:15)
[2020-05-23] MEDS: NS IV SCH ×6 (08:12→20:15)
[2020-05-23] MEDS: PHENYTOIN IV SCH ×6 (08:12→20:15)
[2020-05-23] MEDS: PANTOPRAZOLE 40 MG (PROTONIX) VIAL IV SCH (08:13)
--- NOTE | 2020-05-23 08:29 | Progress Note - Hospitalist ---
Subjective HPI/CC On Admission Date Seen by Provider: May 23, 2020 Time Seen by Provider: 08:26 CC: Worsening COVID-19 condition requiring transfer to higher level from [facility] HPI: This is a 55yoWF clinic patient of [facility] who presents following a 5 day course at [facility] after she was admitted presumptive COVID on Sunday along with Flu A placed on Tamiflu until COVID swab confirmed so Decadron was started along with convalescent plasma but started to worsen with higher fevers requiring initiation of Vanc and Cefepime for elevated PCT at 0.22. Vapotherm was started yesterday afternoon and this am she once again had decreased O2 sats and appeared to be worsening prompting transfer to [facility] for Pulmonology and critical care services. Subjective/Events-last exam pt remains intubated and sedated. No ROS possible. RN states no concerns. Objective Exam Vital Signs Vital Signs Date Time Temp Pulse Resp B/P (MAP) Pulse Ox O2 Delivery O2 Flow Rate FiO2 05/23/20 08:00 93 26 128/70 (89) 91 Mechanical Ventilator 50.00 05/23/20 07:51 50 05/23/20 05:23 36.3 Capillary Refill : Less Than 3 Seconds General Appearance: Obese, Other (intubated and sedated) HEENT: Other (ETT, OGT) Respiratory: No Crackles; Rhonci; No Wheezing; Other (on vent) Cardiovascular: Regular Rate, Rhythm, No Murmur Gastrointestinal: Normal Bowel Sounds, Non Tender, Soft Genital/Rectal: Other (meehan) Extremity: Normal Capillary Refill, Pedal Edema Neurologic/Psychiatric: Other (sedated, appears comfortable) Skin: Tattoos/Piercings Results/Procedures Lab Laboratory Tests 05/23/20 01:13 Patient resulted labs reviewed. Assessment/Plan Assessment and Plan Assess & Plan/Chief Complaint COVID + /influenza A with acute respiratory failure and ARDS -PEEP 14, FiO2 of 50% today, -S/p tamiflu for Flu A and 2 units of convalescent plasma at [facility] -Completed Remdesivir day 12/15 -decadron 20mg- will need to start to wean in the next few days -Continue TF with pulmicare at 15cc/hr - Trophic feeds -s/p Convalescent plasma x 2 at [facility] -proning at shift changes secondary to high BMI - I called and spoke with daughter on 05/22 about status and potential need for LTACH if not able to wean over the next week or so, daughter states that pt would be ok with a few weeks of intubation but does not want a trach, she is agreeable to LTACH if needed though Pancytopenia - Apparently chronic and follows with Dr Stone as an outpatient, stable Obesity with probable DENNIS hx of brain surgery and seizures - On Keppra and Phenytoin - Versed for sedation preferably - Seizure precautions - PRN Ativan Hypokalemia -Resolved, continue on protocol NIDDMII - Fasting BS - SSI GI and DVT PPX with Protonix and Lovenox Critical Care Critically Ill Patient Diagnosis/Problems Diagnosis/Problems (1) Acute respiratory failure Status: Acute Qualifiers: Respiratory failure complication: hypoxia Qualified Codes: J96.01 - Acute respiratory failure with hypoxia (2) Seizure disorder Status: Chronic (3) COVID-19 Status: Acute (4) ARDS (adult respiratory distress syndrome) Clinical Quality Measures DVT/VTE Risk/Contraindication: Risk Factor Score Per Nursin RFS Level Per Nursing on Admit: 4+=Very High GREGG TOWNSEND MD May 23, 2020 08:29
[2020-05-23] MEDS: LACTATED RINGERS 1,000 ML IV SCH (20:17)
[2020-05-23 21:29] LABS: ABG BASE EXCESS 9.7 MMOL/L (-2.5-2.5); ABG OXYGEN SATURATION 97 % (94-100); ABG PCO2 51 MMHG (35-45); ABG PH 7.44 (7.37-7.43); ABG PO2 87 MMHG (79-93)
[2020-05-23 21:33] LABS: ALLENS TEST POSITIVE
[2020-05-23 21:34] LABS: INSPIRED O2 40; PATIENT TEMP 36.4; VENTILATOR YES
[2020-05-24] VITALS (30 sets, daily range): BP systolic 103–156; BP diastolic 54–77
[2020-05-24] MEDS: RT-ALBUTEROL INHALER HFA (VENTOLIN HFA) 18 GM IH SCH ×4 (01:10→21:09)
[2020-05-24] MEDS: PROPOFOL DRIP (ICU) 100 ML IV SCH ×4 (01:17→23:24)
[2020-05-24 02:00] LABS: ABG BASE EXCESS 9.2 MMOL/L (-2.5-2.5); ABG OXYGEN SATURATION 95 % (94-100); ABG PCO2 52 MMHG (35-45); ABG PH 7.43 (7.37-7.43); ABG PO2 73 MMHG (79-93); ABG TCO2 35.5 MMOL/L (21.0-31.0)
[2020-05-24 02:01] LABS: HEMOGLOBIN 11.4 g/dL (11.5-16.0)
[2020-05-24 02:03] LABS: BASOPHILS % (AUTO) 0 % (0-10); EOSINOPHILS % (AUTO) 0 % (0-10); HEMATOCRIT 36 % (35-52); LYMPHOCYTES # (AUTO) 0.8 10^3/uL (1.0-4.0); LYMPHOCYTES % (AUTO) 19 % (12-44); MEAN CORPUSCULAR HEMOGLOBIN 31 pg (25-34); MEAN CORPUSCULAR HGB CONC 32 g/dL (32-36); MEAN CORPUSCULAR VOLUME 98 fL (80-99); MEAN PLATELET VOLUME 10.8 fL (9.0-12.2); MONOCYTES # (AUTO) 0.3 10^3/uL (0.0-1.0); MONOCYTES % (AUTO) 7 % (0-12); NEUTROPHILS % (AUTO) 70 % (42-75); PLATELET COUNT 104 10^3/uL (130-400); WHITE BLOOD COUNT 4.3 10^3/uL (4.3-11.0)
[2020-05-24 02:07] LABS: ALLENS TEST POSITIVE; INSPIRED O2 35; PATIENT TEMP 36.6; VENTILATOR YES
[2020-05-24 02:21] LABS: CHLORIDE 104 MMOL/L (98-107); POTASSIUM 3.6 MMOL/L (3.6-5.0); SODIUM 145 MMOL/L (135-145)
[2020-05-24 02:22] LABS: CALCIUM 8.2 MG/DL (8.5-10.1)
[2020-05-24 02:23] LABS: GLUCOSE 162 MG/DL (70-105)
[2020-05-24 02:24] LABS: CARBON DIOXIDE 31 MMOL/L (21-32)
[2020-05-24 02:26] LABS: PHOSPHORUS 2.4 MG/DL (2.3-4.7)
[2020-05-24 02:27] LABS: CREATININE SERUM 0.55 MG/DL (0.60-1.30); GFR ESTIMATED > 60
[2020-05-24 02:28] LABS: BUN/CREATININE RATIO 24
[2020-05-24 02:29] LABS: MAGNESIUM 1.7 MG/DL (1.6-2.4)
[2020-05-24] MEDS: MIDAZOLAM INJECTION FOR DRIPS 50 MG in NS (IVPB) 90 ML IV SCH ×4 (02:53→23:26)
[2020-05-24] MEDS: fentaNYL INJECTION 1,250 MCG in NS (IVPB) 250 ML IV SCH (03:06)
[2020-05-24] MEDS: POTASSIUM CL 10MEQ/50ML IVPB 50 ML IV SCH ×3 (03:09→05:02)
[2020-05-24] MEDS: inSUlin ASPART (NovoLOG) 1 UNIT/0.01 ML (CHARGE PER UNIT) SQ SCH ×4 (03:10→23:24)
[2020-05-24] MEDS: MAGNESIUM 1 GM/100 ML IVPB 100 ML IV SCH ×3 (03:10→05:01)
[2020-05-24] MEDS: KCL 20 MEQ TAB (K-DUR) PO SCH (03:10)
--- NOTE | 2020-05-24 04:18 | Pulmonary Progress Note ---
Subjective Time Seen by a Provider: 04:16 Subjective/Events-last exam Sedated on vent. Sepsis Event Evaluation Height, Weight, BMI Height: '" Weight: 373lbs. 6.0oz. 169.310906hg; 49.98 BMI Method: Exam Exam Vital Signs Date Time Temp Pulse Resp B/P (MAP) Pulse Ox O2 Delivery O2 Flow Rate FiO2 05/24/20 03:48 Mechanical Ventilator 30 05/24/20 02:53 87 26 145/77 05/24/20 02:51 36.2 Mechanical Ventilator 30.00 05/24/20 01:17 87 145/77 05/24/20 01:10 87 26 96 35 05/24/20 00:00 84 25 156/75 (102) 94 Mechanical Ventilator 35.00 05/23/20 23:42 Mechanical Ventilator 35 05/23/20 23:40 37.4 Mechanical Ventilator 35.00 05/23/20 23:00 81 22 152/75 (100) 96 Mechanical Ventilator 40.00 05/23/20 22:00 83 25 155/74 (101) 95 Mechanical Ventilator 40.00 05/23/20 21:45 81 26 96 40 05/23/20 21:00 86 23 150/75 (100) 96 Mechanical Ventilator 40.00 05/23/20 20:50 36.4 Mechanical Ventilator 40.00 05/23/20 20:13 87 26 144/73 05/23/20 20:00 90 20 153/79 (103) 95 Mechanical Ventilator 40.00 05/23/20 20:00 Mechanical Ventilator 40 05/23/20 19:00 84 25 150/75 (100) 95 Mechanical Ventilator 40.00 05/23/20 19:00 84 05/23/20 18:36 87 26 94 40 05/23/20 18:16 37.0 05/23/20 18:00 78 26 147/70 (95) 95 Mechanical Ventilator 40.00 05/23/20 17:00 79 25 143/71 (95) 95 Mechanical Ventilator 40.00 05/23/20 16:00 79 26 148/79 (102) 95 Mechanical Ventilator 40.00 05/23/20 15:48 95 Mechanical Ventilator 40 05/23/20 15:00 93 25 154/75 (101) 94 Mechanical Ventilator 40.00 05/23/20 14:52 92 26 94 40 05/23/20 14:00 88 25 124/60 (81) 95 Mechanical Ventilator 40.00 05/23/20 13:00 89 14 129/69 (89) 95 Mechanical Ventilator 40.00 05/23/20 12:34 92 26 142/70 05/23/20 12:28 91 05/23/20 12:00 94 Mechanical Ventilator 40 05/23/20 12:00 93 25 138/66 (90) 94 Mechanical Ventilator 40.00 05/23/20 11:21 95 26 95 50 05/23/20 11:00 89 12 149/73 (98) 95 Mechanical Ventilator 50.00 05/23/20 11:00 90 25 150/71 (97) 95 Mechanical Ventilator 50.00 05/23/20 10:00 89 12 149/73 (92) 95 Mechanical Ventilator 50.00 05/23/20 09:59 87 113/60 05/23/20 09:00 87 20 117/60 (73) 93 Mechanical Ventilator 50.00 05/23/20 08:00 93 26 128/70 (89) 91 Mechanical Ventilator 50.00 05/23/20 07:51 88 26 96 50 05/23/20 07:15 36.4 05/23/20 07:15 90 Mechanical Ventilator 50 05/23/20 07:00 80 26 120/62 (81) 94 Mechanical Ventilator 50.00 05/23/20 07:00 84 05/23/20 06:00 86 26 122/63 (82) 92 Mechanical Ventilator 50.00 05/23/20 05:23 36.3 05/23/20 05:09 86 05/23/20 05:08 151/81 05/23/20 05:00 87 26 151/81 (104) 96 Mechanical Ventilator 50.00 I & O 05/24/20 07:00 Intake Total 1657 ml Output Total 2165 ml Balance -508 ml Height & Weight Height: '" Weight: 373lbs. 6.0oz. 169.430975nj; 49.98 BMI Method: General Appearance: Obese, Other (intubated and sedated) HEENT: Other (ETT, OGT) Neck: Full Range of Motion, Normal Inspection, Non Tender, Supple, Carotid Bru it Respiratory: No Crackles; Rhonci; No Wheezing; Other (on vent) Cardiovascular: Regular Rate, Rhythm, No Murmur Capillary Refill: Less Than 3 Seconds Extremity: Normal Capillary Refill, Pedal Edema Neurologic/Psychiatric: Other (sedated, appears comfortable) Skin: Tattoos/Piercings Lymphatic: No Adenopathy Results Lab Laboratory Tests 05/23/20 01:13 05/24/20 01:40 Assessment/Plan Assessment/Plan COVID + /influena A with acute respiratory failure and ARDS Pa02/Fi02 - now improved to 208 -S/p tamiflu and 2 units of convalescent plasma at [facility] [place]EICU assisted with management through the weekend. -daily sedation vacations -D/C Fentanyl currently at 150 -Decrease Peep to 10. -s/p Remdesivir -Daily CMPs -decadron to 20mg. - Decrease to 10mg - TF with pulmicare at 15cc/hr - Trophic feeds. -Continue while proning. -s/p Convalescent plasma x 2 at [facility] [place] -proning at shift changes secondary to BMI -BiPAP PRN Pancytopenia -Monitor Obesity with probable DENNIS hx of brain surgery and seizures -Home seizure meds restarted -Seizure precautions -PRN Ativan Hypokalemia -Replace and recheck Chronic pancytopenia -- Follows with hematology GI and DVT PPX - MARY JONES DO May 24, 2020 04:18
[2020-05-24] MEDS: CEFEPIME INJECTION 1,000 MG in WATER (STERILE) FOR INJECTION 10 ML IV SCH ×3 (04:59→19:01)
--- NOTE | 2020-05-24 07:19 | Diagnostic Imaging Report ---
INDICATION: Shortness of breath. Comparison made with prior examination of 05/17/2020. FINDINGS: Heart size is normal. There are bilateral pulmonary infiltrates. Endotracheal tube appears to be in satisfactory position. Distal nasogastric tube is not well visualized. IMPRESSION: Endotracheal tube appears be in satisfactory position. Bibasilar pulmonary infiltrates, right greater than left. Dictated by: Dictated on workstation # [id number]
[2020-05-24] MEDS: LEVETIRACETAM INJECTION 1,500 MG in NS (IVPB) 100 ML IV SCH ×2 (09:03→19:59)
[2020-05-24] MEDS: dexAMETHasone INJECTION 20 MG in NS (IVPB) 50 ML IV SCH (09:03)
[2020-05-24] MEDS: MICONAZOLE 2% POWDER (DESENEX AF) 90 GM TOP SCH ×2 (09:04→20:00)
[2020-05-24] MEDS: PANTOPRAZOLE 40 MG (PROTONIX) VIAL IV SCH (09:04)
[2020-05-24] MEDS: VENLAFAXINE 50 MG (EFFEXOR) TABLET PO SCH ×2 (09:05→19:59)
[2020-05-24] MEDS: NS IV SCH ×3 (09:06)
[2020-05-24] MEDS: PHENYTOIN IV SCH ×3 (09:06)
[2020-05-24] MEDS: MICRON FILTER IV SCH ×3 (09:06)
[2020-05-24] MEDS: FUROSEMIDE 40 MG/4 ML INJ (LASIX) IVP SCH (09:09)
[2020-05-24] MEDS: ENOXAPARIN 60 MG/0.6 ML (LOVENOX) SYR SC SCH ×2 (12:15→23:24)
--- NOTE | 2020-05-24 15:51 | NUR ---
"TF FOLLOW-UP Est kcal needs: 1650 kcal | 25 kcal/kg IBW, based on IBW of 65.9 kg (145#) Est Pro needs: 66 g Pro | 1.0 g Pro/kg IBW Note pt is currently intubated/sedated, per chart review. Note pt currently receiving Pulmocare 1.5 kcal at rate of 15ml/hr, with no flushes. At current rate, provides 540 kcal (3 kcal/kg BW); 23 g Pro (0.1 g Pro/kg BW); and 283ml free water. Would recommend continuation toward goal rate of 45ml/hr. Would recommend increase by 10ml q6h as medically able and as tolerated. At goal rate, provides 1620 kcal (10 kcal/kg BW); 68 g Pro (0.4 g Pro/kg BW); and 848ml free water. Flush with 25ml q4h for hydration status and to prevent tube from clogging. With flushes, provides 998ml free water. Request that TF order be placed into chart. Will continue to follow and reassess as pt needs, intake, and status change. Kel Diaz MS RD LD [phone] (cell)"
[2020-05-24] MEDS: LACTATED RINGERS 1,000 ML IV SCH (19:59)
[2020-05-24] MEDS ORDERED: NS (IVPB) 0 ML ONE (23:16)
[2020-05-24] MEDS ORDERED: MIDAZOLAM FOR DRIPS 10 MG/2 ML VIAL ONE (23:16)
[2020-05-25] VITALS (29 sets, daily range): BP systolic 108–157; BP diastolic 58–79
[2020-05-25] MEDS: RT-ALBUTEROL INHALER HFA (VENTOLIN HFA) 18 GM IH SCH ×4 (01:51→20:59)
[2020-05-25 03:51] LABS: ABG BASE EXCESS 11.2 MMOL/L (-2.5-2.5); ABG OXYGEN SATURATION 95 % (94-100); ABG PCO2 41 MMHG (35-45); ABG PH 7.53 (7.37-7.43); ABG PO2 69 MMHG (79-93)
[2020-05-25 04:01] LABS: ALLENS TEST YES-POS; INSPIRED O2 35%; VENTILATOR YES
[2020-05-25 04:13] LABS: BASOPHILS % (AUTO) 0 % (0-10); EOSINOPHILS % (AUTO) 1 % (0-10); HEMATOCRIT 32 % (35-52); HEMOGLOBIN 10.1 g/dL (11.5-16.0); LYMPHOCYTES # (AUTO) 0.8 10^3/uL (1.0-4.0); LYMPHOCYTES % (AUTO) 23 % (12-44); MEAN CORPUSCULAR HEMOGLOBIN 31 pg (25-34); MEAN CORPUSCULAR HGB CONC 32 g/dL (32-36); MEAN CORPUSCULAR VOLUME 97 fL (80-99); MEAN PLATELET VOLUME 11.1 fL (9.0-12.2); MONOCYTES # (AUTO) 0.2 10^3/uL (0.0-1.0); MONOCYTES % (AUTO) 6 % (0-12); NEUTROPHILS # (AUTO) 2.3 10^3/uL (1.8-7.8); NEUTROPHILS % (AUTO) 67 % (42-75); PLATELET COUNT 76 10^3/uL (130-400); WHITE BLOOD COUNT 3.5 10^3/uL (4.3-11.0)
[2020-05-25 04:17] LABS: CHLORIDE 103 MMOL/L (98-107); POTASSIUM 3.2 MMOL/L (3.6-5.0); SODIUM 145 MMOL/L (135-145)
[2020-05-25 04:19] LABS: GLUCOSE 145 MG/DL (70-105)
[2020-05-25 04:21] LABS: CARBON DIOXIDE 33 MMOL/L (21-32)
[2020-05-25 04:23] LABS: GFR ESTIMATED > 60; PHOSPHORUS 1.9 MG/DL (2.3-4.7)
[2020-05-25 04:24] LABS: BUN/CREATININE RATIO 24
[2020-05-25 04:25] LABS: MAGNESIUM 1.7 MG/DL (1.6-2.4)
[2020-05-25] MEDS: MIDAZOLAM INJECTION FOR DRIPS 50 MG in NS (IVPB) 90 ML IV SCH ×4 (04:32→22:02)
[2020-05-25] MEDS: PROPOFOL DRIP (ICU) 100 ML IV SCH ×5 (04:32→22:02)
[2020-05-25] MEDS: POTASSIUM CL 10MEQ/50ML IVPB 50 ML IV SCH ×3 (04:34→04:37)
[2020-05-25] MEDS: MAGNESIUM 1 GM/100 ML IVPB 100 ML IV SCH ×3 (04:34→04:36)
[2020-05-25] MEDS: KCL 20 MEQ TAB (K-DUR) PO SCH (04:34)
[2020-05-25] MEDS: inSUlin ASPART (NovoLOG) 1 UNIT/0.01 ML (CHARGE PER UNIT) SQ SCH ×4 (04:35→23:41)
--- NOTE | 2020-05-25 05:51 | Pulmonary Progress Note ---
Subjective Time Seen by a Provider: 05:50 Subjective/Events-last exam Pt is currently sedated on vent. Sepsis Event Evaluation Height, Weight, BMI Height: '" Weight: 373lbs. 6.0oz. 169.688871dl; 49.98 BMI Method: Exam Exam Vital Signs Date Time Temp Pulse Resp B/P (MAP) Pulse Ox O2 Delivery O2 Flow Rate FiO2 05/25/20 05:02 Mechanical Ventilator 30.00 05/25/20 05:00 94 26 151/79 (103) 97 Mechanical Ventilator 35.00 05/25/20 04:32 89 26 126/72 05/25/20 04:32 89 126/72 05/25/20 04:00 93 157/78 (104) 100 Mechanical Ventilator 35.00 05/25/20 03:37 Mechanical Ventilator 35 05/25/20 03:35 37.0 Mechanical Ventilator 35.00 05/25/20 03:00 90 25 135/75 (95) 93 Mechanical Ventilator 40.00 05/25/20 02:00 89 25 132/71 (91) 92 Mechanical Ventilator 40.00 05/25/20 01:51 89 26 92 40 05/25/20 01:00 90 05/25/20 01:00 90 25 128/71 (90) 93 Mechanical Ventilator 40.00 05/25/20 00:00 92 26 133/70 (91) 93 Mechanical Ventilator 40.00 05/24/20 23:26 92 26 121/69 05/24/20 23:24 92 121/69 05/24/20 23:19 Mechanical Ventilator 40 05/24/20 23:18 37.1 05/24/20 23:00 93 26 135/70 (91) 94 Mechanical Ventilator 40.00 05/24/20 22:00 91 25 123/64 (83) 93 Mechanical Ventilator 40.00 05/24/20 21:09 92 26 93 40 05/24/20 21:00 93 25 121/69 (86) 93 Mechanical Ventilator 40.00 05/24/20 20:04 36.9 Mechanical Ventilator 40.00 05/24/20 20:00 Mechanical Ventilator 40 05/24/20 20:00 93 26 124/68 (86) 93 Mechanical Ventilator 40.00 05/24/20 19:14 93 05/24/20 19:13 93 05/24/20 19:00 94 05/24/20 19:00 94 25 129/69 (89) 93 Mechanical Ventilator 40.00 05/24/20 18:17 81 26 93 40 05/24/20 18:00 98 25 124/68 (86) 93 Mechanical Ventilator 40.00 05/24/20 17:00 101 25 126/74 (91) 94 Mechanical Ventilator 40.00 05/24/20 16:15 Mechanical Ventilator 40 05/24/20 16:00 101 26 136/75 (95) 96 Mechanical Ventilator 40.00 05/24/20 15:00 101 25 131/73 (92) 92 Mechanical Ventilator 40.00 05/24/20 14:00 104 24 130/66 (87) 94 Mechanical Ventilator 40.00 05/24/20 13:48 103 26 96 40 05/24/20 13:00 99 26 136/71 (92) 96 Mechanical Ventilator 40.00 05/24/20 12:48 100 05/24/20 12:40 Mechanical Ventilator 40 05/24/20 12:00 99 26 132/67 (88) 93 Mechanical Ventilator 40.00 05/24/20 11:00 97 25 128/64 (85) 93 Mechanical Ventilator 40.00 05/24/20 10:41 97 26 93 40 05/24/20 10:00 93 25 144/69 (94) 94 Mechanical Ventilator 40.00 05/24/20 09:21 36.4 40.00 05/24/20 09:04 90 26 148/72 05/24/20 09:03 91 124/69 05/24/20 09:00 92 31 146/71 (96) 98 Mechanical Ventilator 30.00 05/24/20 08:30 Mechanical Ventilator 40 05/24/20 08:00 92 26 120/63 (82) 96 Mechanical Ventilator 30.00 05/24/20 07:00 93 26 116/59 (78) 95 Mechanical Ventilator 30.00 05/24/20 06:43 89 05/24/20 06:42 90 26 91 35 05/24/20 06:00 86 26 123/64 (83) 96 Mechanical Ventilator 30.00 I & O 05/25/20 07:00 Intake Total 2111 ml Output Total 2690 ml Balance -579 ml Height & Weight Height: '" Weight: 373lbs. 6.0oz. 169.202055ln; 49.98 BMI Method: General Appearance: Obese, Other (intubated and sedated) HEENT: Other (ETT, OGT) Neck: Full Range of Motion, Normal Inspection, Non Tender, Supple, Carotid Bruit Respiratory: No Crackles; Rhonci; No Wheezing; Other (on vent) Cardiovascular: Regular Rate, Rhythm, No Murmur Capillary Refill: Less Than 3 Seconds Extremity: Normal Capillary Refill, Pedal Edema Neurologic/Psychiatric: Other (sedated, appears comfortable) Skin: Tattoos/Piercings Lymphatic: No Adenopathy Results Lab Laboratory Tests 05/24/20 01:40 05/25/20 03:24 Assessment/Plan Assessment/Plan COVID + /influena A with acute respiratory failure and ARDS Pa02/Fi02 - now improved to 208 -S/p tamiflu and 2 units of convalescent plasma at [facility] [place]Will do weaning trail today. -daily sedation vacations -Decrease Peep to 10. -s/p Remdesivir -Daily CMPs -decadron to 20mg. - Decrease to 10mg - TF with pulmicare at 15cc/hr - Trophic feeds. -Continue while proning. -s/p Convalescent plasma x 2 at [facility] [place] -proning at shift changes secondary to BMI -BiPAP PRN Pancytopenia -Monitor Obesity with probable DENNIS hx of brain surgery and seizures -Home seizure meds restarted -Seizure precautions -PRN Ativan Hypokalemia -Replace and recheck Chronic pancytopenia -- Follows with hematology GI and DVT PPX - MARY JONES DO May 25, 2020 05:51
[2020-05-25] MEDS: MICRON FILTER IV SCH ×6 (08:29→20:01)
[2020-05-25] MEDS: PHENYTOIN IV SCH ×6 (08:29→20:01)
[2020-05-25] MEDS: NS IV SCH ×6 (08:29→20:01)
[2020-05-25] MEDS: PANTOPRAZOLE 40 MG (PROTONIX) VIAL IV SCH (08:34)
[2020-05-25] MEDS: MICONAZOLE 2% POWDER (DESENEX AF) 90 GM TOP SCH ×2 (08:34→21:02)
[2020-05-25] MEDS: FUROSEMIDE 40 MG/4 ML INJ (LASIX) IVP SCH (08:34)
[2020-05-25] MEDS: VENLAFAXINE 50 MG (EFFEXOR) TABLET PO SCH ×2 (08:40→21:02)
[2020-05-25] MEDS: LEVETIRACETAM INJECTION 1,500 MG in NS (IVPB) 100 ML IV SCH ×2 (08:46→20:00)
[2020-05-25] MEDS ORDERED: POTASSIUM PHOSPHATE INJ 30 MM in NS (IVPB) 250 ML IV ONE (09:00)
[2020-05-25] MEDS ORDERED: dexAMETHasone INJECTION 15 MG in NS (IVPB) 50 ML IV SCH (09:00)
--- NOTE | 2020-05-25 11:13 | NUR ---
Called and spoke with daughter Flakita, offered prayer and support, daughter coping well.
[2020-05-25] MEDS: ENOXAPARIN 60 MG/0.6 ML (LOVENOX) SYR SC SCH ×2 (12:12→23:42)
--- NOTE | 2020-05-25 12:30 | NUR ---
PT PLACED INTO PRONE POSITION AT THIS TIME. TOLERATED WELL.
--- NOTE | 2020-05-25 14:30 | NUR ---
"TF FOLLOW-UP Est kcal needs: 1650 kcal | 25 kcal/kg IBW, based on IBW of 65.9 kg (145#) Est Pro needs: 66 g Pro | 1.0 g Pro/kg IBW Note pt is currently intubated/sedated, per chart review. Note pt currently receiving Pulmocare 1.5 kcal at rate of 25ml/hr, with 25ml water flushes q4h. At current rate, provides 900 kcal (5 kcal/kg BW); 38 g Pro (0.2 g Pro/kg BW); and 621ml free water. Would recommend continuation toward goal rate of 45ml/hr. Would recommend increase by 10ml q6h as medically able and as tolerated. At goal rate, provides 1620 kcal (10 kcal/kg BW); 68 g Pro (0.4 g Pro/kg BW); and 848ml free water. Flush with 25ml q4h for hydration status and to prevent tube from clogging. With flushes, provides 998ml free water. Request that TF order be placed into chart. Will continue to follow and reassess as pt needs, intake, and status change. Kel Diaz MS RD LD [phone] (cell)"
[2020-05-25] MEDS: LACTATED RINGERS 1,000 ML IV SCH (20:00)
--- NOTE | 2020-05-25 20:13 | NUR ---
THIS RN WASTED 250ML FENTANYL WITH RN ABHISHEKIN. FENTANYL WAS PREVIOUSLY DISCONTINUED BY PROVIDER.
[2020-05-26] VITALS (30 sets, daily range): BP systolic 112–169; BP diastolic 54–82
[2020-05-26] MEDS: RT-ALBUTEROL INHALER HFA (VENTOLIN HFA) 18 GM IH SCH ×4 (02:05→19:23)
[2020-05-26] MEDS: PROPOFOL DRIP (ICU) 100 ML IV SCH ×7 (03:06→23:48)
[2020-05-26] MEDS: MIDAZOLAM INJECTION FOR DRIPS 50 MG in NS (IVPB) 90 ML IV SCH ×5 (03:06→20:02)
[2020-05-26 03:42] LABS: ABG BASE EXCESS 9.9 MMOL/L (-2.5-2.5); ABG OXYGEN SATURATION 93 % (94-100); ABG PCO2 38 MMHG (35-45); ABG PH 7.55 (7.37-7.43); ABG PO2 58 MMHG (79-93); ABG TCO2 34.6 MMOL/L (21.0-31.0)
[2020-05-26 03:45] LABS: ALLENS TEST POS; INSPIRED O2 35%; PATIENT TEMP 35.9; VENTILATOR YES
[2020-05-26 03:47] LABS: BASOPHILS % (AUTO) 0 % (0-10); MEAN CORPUSCULAR HEMOGLOBIN 31 pg (25-34); WHITE BLOOD COUNT 3.4 10^3/uL (4.3-11.0)
[2020-05-26 03:49] LABS: EOSINOPHILS % (AUTO) 0 % (0-10); HEMATOCRIT 33 % (35-52); HEMOGLOBIN 10.4 g/dL (11.5-16.0); LYMPHOCYTES # (AUTO) 0.8 10^3/uL (1.0-4.0); LYMPHOCYTES % (AUTO) 23 % (12-44); MEAN CORPUSCULAR HGB CONC 32 g/dL (32-36); MEAN CORPUSCULAR VOLUME 97 fL (80-99); MEAN PLATELET VOLUME 10.8 fL (9.0-12.2); MONOCYTES # (AUTO) 0.2 10^3/uL (0.0-1.0); MONOCYTES % (AUTO) 6 % (0-12); NEUTROPHILS # (AUTO) 2.3 10^3/uL (1.8-7.8); NEUTROPHILS % (AUTO) 69 % (42-75)
[2020-05-26 03:53] LABS: PLATELET COUNT 70 10^3/uL (130-400)
[2020-05-26 04:09] LABS: BUN/CREATININE RATIO 28; CARBON DIOXIDE 32 MMOL/L (21-32); CHLORIDE 102 MMOL/L (98-107); CREATININE SERUM 0.47 MG/DL (0.60-1.30); GFR ESTIMATED > 60; GLUCOSE 149 MG/DL (70-105); MAGNESIUM 1.8 MG/DL (1.6-2.4); PHOSPHORUS 1.8 MG/DL (2.3-4.7); POTASSIUM 3.1 MMOL/L (3.6-5.0); SODIUM 143 MMOL/L (135-145)
[2020-05-26] MEDS: POTASSIUM CL 10MEQ/50ML IVPB 50 ML IV SCH ×3 (04:40→05:58)
[2020-05-26] MEDS: MAGNESIUM 1 GM/100 ML IVPB 100 ML IV SCH ×3 (04:40→05:57)
[2020-05-26] MEDS: inSUlin ASPART (NovoLOG) 1 UNIT/0.01 ML (CHARGE PER UNIT) SQ SCH ×4 (04:41→22:50)
[2020-05-26] MEDS: KCL 20 MEQ TAB (K-DUR) PO SCH (04:41)
[2020-05-26] MEDS ORDERED: POTASSIUM CL 10MEQ/50ML IVPB 50 ML IV SCH (04:45)
--- NOTE | 2020-05-26 04:49 | Pulmonary Progress Note ---
Subjective Time Seen by a Provider: 04:46 Subjective/Events-last exam Sedated on vent. Sepsis Event Evaluation Height, Weight, BMI Height: '" Weight: 373lbs. 6.0oz. 169.334378am; 49.98 BMI Method: Exam Exam Vital Signs Date Time Temp Pulse Resp B/P (MAP) Pulse Ox O2 Delivery O2 Flow Rate FiO2 05/26/20 03:27 Mechanical Ventilator 30.00 05/26/20 03:09 Mechanical Ventilator 35 05/26/20 03:08 35.9 05/26/20 03:06 68 26 115/66 05/26/20 03:06 68 115/66 05/26/20 02:05 68 26 94 35 05/26/20 02:00 69 25 115/66 (82) 94 Mechanical Ventilator 35.00 05/26/20 01:00 70 05/26/20 01:00 70 25 112/67 (82) 94 Mechanical Ventilator 35.00 05/26/20 00:00 71 27 126/67 (86) 94 Mechanical Ventilator 35.00 05/25/20 23:40 35.9 05/25/20 23:34 Mechanical Ventilator 35 05/25/20 23:00 73 109/64 (79) 94 Mechanical Ventilator 35.00 05/25/20 22:02 77 26 112/62 05/25/20 22:02 77 112/62 05/25/20 22:00 78 28 117/63 (81) 94 Mechanical Ventilator 35.00 05/25/20 21:00 78 25 112/62 (79) 93 Mechanical Ventilator 35.00 05/25/20 21:00 77 26 93 35 05/25/20 20:00 Mechanical Ventilator 35 05/25/20 20:00 76 108/58 (75) 96 Mechanical Ventilator 35.00 05/25/20 19:54 36.1 05/25/20 19:00 80 28 109/59 (76) 96 Mechanical Ventilator 35.00 05/25/20 19:00 Mechanical Ventilator 35.00 05/25/20 19:00 80 05/25/20 18:25 80 26 97 40 05/25/20 18:00 82 42 110/60 (77) 96 Mechanical Ventilator 100.00 05/25/20 17:00 87 39 122/66 (84) 97 Mechanical Ventilator 100.00 05/25/20 16:39 85 26 117/66 05/25/20 16:39 87 117/66 05/25/20 16:00 92 46 116/67 (83) 97 Mechanical Ventilator 100.00 05/25/20 15:38 Mechanical Ventilator 40 05/25/20 15:21 37.3 05/25/20 15:00 99 28 126/67 (86) 95 Mechanical Ventilator 100.00 05/25/20 14:55 98 26 95 40 05/25/20 14:00 99 25 126/71 (89) 97 Mechanical Ventilator 100.00 05/25/20 13:21 95 130/72 05/25/20 13:20 Mechanical Ventilator 100.00 05/25/20 13:00 97 25 131/71 (91) 82 Mechanical Ventilator 40.00 05/25/20 12:40 97 05/25/20 12:13 37.4 05/25/20 12:11 98 26 124/74 05/25/20 12:11 98 126/72 05/25/20 12:00 98 25 129/72 (91) 95 Mechanical Ventilator 40.00 05/25/20 12:00 Mechanical Ventilator 40 05/25/20 11:10 103 26 93 30 05/25/20 11:00 105 26 129/75 (93) 92 Mechanical Ventilator 40.00 05/25/20 10:00 104 25 119/70 (86) 91 Mechanical Ventilator 40.00 05/25/20 09:00 93 26 142/79 (100) 95 Mechanical Ventilator 40.00 05/25/20 08:43 37.1 05/25/20 08:00 103 25 131/78 (95) 91 Mechanical Ventilator 40.00 05/25/20 08:00 Mechanical Ventilator 40 05/25/20 07:00 108 26 109/65 (80) 91 Mechanical Ventilator 40.00 05/25/20 06:58 109 26 91 30 05/25/20 06:50 111 05/25/20 06:00 108 26 148/79 (102) 97 Mechanical Ventilator 30.00 05/25/20 05:02 Mechanical Ventilator 30.00 05/25/20 05:00 94 26 151/79 (103) 97 Mechanical Ventilator 35.00 I & O 05/26/20 07:00 Intake Total 2307.5 ml Output Total 1830 ml Balance 477.5 ml Height & Weight Height: '" Weight: 373lbs. 6.0oz. 169.100924sv; 49.98 BMI Method: General Appearance: Obese, Other (intubated and sedated) HEENT: Other (ETT, OGT) Neck: Full Range of Motion, Normal Inspection, Non Tender, Supple, Carotid Bruit Respiratory: No Crackles; Rhonci; No Wheezing; Other (on vent) Cardiovascular: Regular Rate, Rhythm, No Murmur Capillary Refill: Less Than 3 Seconds Extremity: Normal Capillary Refill, Pedal Edema Neurologic/Psychiatric: Other (sedated, appears comfortable) Skin: Tattoos/Piercings Lymphatic: No Adenopathy Results Lab Laboratory Tests 05/25/20 03:24 05/26/20 03:15 Assessment/Plan Assessment/Plan COVID + /influena A with acute respiratory failure and ARDS Pa02/Fi02 - now improved to 165 -Decrease PEEP to 8 -Lasix 40mg daily -S/p tamiflu and 2 units of convalescent plasma at [facility] [place]Will do weaning trail today. -daily sedation vacations -Decrease Peep to 10. -s/p Remdesivir -Daily CMPs -decadron to 20mg. - Decrease to 10mg -Recheck PCT, and BNP - TF with pulmicare at 15cc/hr - Trophic feeds. -Continue while proning. -s/p Convalescent plasma x 2 at [facility] [place] -proning at shift changes secondary to BMI -BiPAP PRN Pancytopenia -Monitor Obesity with probable DENNIS hx of brain surgery and seizures -Home seizure meds restarted -Seizure precautions -PRN Ativan Hypokalemia -Replace and recheck Chronic pancytopenia -- Follows with hematology GI and DVT PPX - MARY JONES DO May 26, 2020 04:49
[2020-05-26 07:34] LABS: CLARITY,URINE CLOUDY; COLOR,URINE ORANGE; GLUCOSE, URINE (UA) NEGATIVE (NEGATIVE); KETONES,URINE 1+ (NEGATIVE); LEUKOCYTE ESTERASE ,URINE 2+ (NEGATIVE); NITRITE,URINE NEGATIVE (NEGATIVE); PH,URINE 6.5 (5-9); PROTEIN,URINE 2+ (NEGATIVE)
--- NOTE | 2020-05-26 07:38 | NUR ---
pulmocare tf started at 15ml/hr while supine per orders. 25ml h2o flush q 4 hrs.
--- NOTE | 2020-05-26 07:41 | NUR ---
peep decreased to 8 and rr [address] higgins.
[2020-05-26 07:44] LABS: BACTERIA,URINE MODERATE /HPF; WBC,URINE 25-50 /HPF
[2020-05-26 07:45] LABS: BILIRUBIN,URINE NEGATIVE (NEGATIVE); YEAST,URINE LARGE /HPF
--- NOTE | 2020-05-26 08:24 | Diagnostic Imaging Report ---
INDICATION: Hypoxia, COVID positive. TECHNIQUE: Single view chest 6:10 AM. CORRELATION STUDY: 05/24/2020 FINDINGS: Endotracheal tube projecting over the trachea below the clavicles above the teddy. Left subclavian central line tip over the superior mediastinum likely innominate vein. Heart size is enlarged largely obscured. Vasculature overall appears increased. Scattered pulmonary parenchymal opacities particularly in the mid and lower lung chaparro persisting and perhaps slightly more consolidated. IMPRESSION: 1. Cardiac enlargement with what appears to be some increasing vascular congestion. 2. Bilateral pulmonary infiltrates particularly mid and lower lung field overall appear increased as well. Report was faxed to [facility] by ramirez at 8:29AM. Dictated by: Dictated on workstation # [id number]
[2020-05-26] MEDS ORDERED: POTASSIUM PHOSPHATE INJ 30 MM in NS (IVPB) 250 ML IV ONE (09:00)
[2020-05-26] MEDS: LEVETIRACETAM INJECTION 1,500 MG in NS (IVPB) 100 ML IV SCH ×2 (09:12→20:00)
[2020-05-26] MEDS: FUROSEMIDE 40 MG/4 ML INJ (LASIX) IVP SCH (09:21)
[2020-05-26] MEDS: PHENYTOIN IV SCH ×6 (09:21→20:11)
[2020-05-26] MEDS: MICRON FILTER IV SCH ×6 (09:21→20:11)
[2020-05-26] MEDS: PANTOPRAZOLE 40 MG (PROTONIX) VIAL IV SCH (09:21)
[2020-05-26] MEDS: NS IV SCH ×6 (09:21→20:11)
[2020-05-26] MEDS: ARTIFICIAL TEARS OINT (LACRI-LUBE) 3.5 GM TUBE OU SCH ×2 (09:21→20:21)
[2020-05-26] MEDS: VENLAFAXINE 50 MG (EFFEXOR) TABLET PO SCH ×2 (09:22→20:22)
[2020-05-26] MEDS: MICONAZOLE 2% POWDER (DESENEX AF) 90 GM TOP SCH ×2 (09:23→20:01)
[2020-05-26 09:50] LABS: ABG BASE EXCESS 9.1 MMOL/L (-2.5-2.5); ABG OXYGEN SATURATION 98 % (94-100); ABG PCO2 44 MMHG (35-45); ABG PH 7.48 (7.37-7.43); ABG PO2 89 MMHG (79-93); ABG TCO2 34.5 MMOL/L (21.0-31.0)
[2020-05-26 09:54] LABS: ALLENS TEST YES-POS; INSPIRED O2 40%
[2020-05-26 09:55] LABS: PATIENT TEMP 97.5; VENTILATOR YES
--- NOTE | 2020-05-26 11:08 | Anesthesia-Procedure Note ---
Procedures/Interventions Procedure Start/Stop/Diagnosis Date of Procedure: May 26, 2020 Start Time: 10:15 Stop Time: 11:05 Arterial Line Arterial Line Catheter: 20G Type: Radial Location: Left Procedure: prepped, draped in sterile fashion, catheter sutured in place, good wave-form was obtained, patient tolerated procedure well, no immediate complications, post procedure area cleaned, post procedure dressing applied CARMELA OLEA CRNA May 26, 2020 11:08
[2020-05-26 11:52] LABS: ABG BASE EXCESS 9.1 MMOL/L (-2.5-2.5); ABG OXYGEN SATURATION 96 % (94-100); ABG PCO2 48 MMHG (35-45); ABG PH 7.46 (7.37-7.43); ABG PO2 82 MMHG (79-93); ABG TCO2 34.9 MMOL/L (21.0-31.0)
[2020-05-26 11:53] LABS: ALLENS TEST ART LINE
[2020-05-26 11:54] LABS: INSPIRED O2 40%; PATIENT TEMP 97.8; VENTILATOR YES
[2020-05-26] MEDS: ENOXAPARIN 60 MG/0.6 ML (LOVENOX) SYR SC SCH (13:01)
--- NOTE | 2020-05-26 14:00 | NUR ---
PT PLACED INTO PRONE POSITION AT THIS TIME. TOLERATED WELL.
--- NOTE | 2020-05-26 14:17 | NUR ---
"TF FOLLOW-UP Est kcal needs: 1650 kcal | 25 kcal/kg IBW, based on IBW of 65.9 kg (145#) Est Pro needs: 66 g Pro | 1.0 g Pro/kg IBW Note pt is currently intubated/sedated, per chart review. Note pt currently receiving Pulmocare 1.5 kcal at rate of 25ml/hr, with 25ml water flushes q4h. At current rate, provides 900 kcal (5 kcal/kg BW); 38 g Pro (0.2 g Pro/kg BW); and 621ml free water. Would recommend continuation toward goal rate of 45ml/hr. Would recommend increasing when medically able and as tolerated. At goal rate, provides 1620 kcal (10 kcal/kg BW); 68 g Pro (0.4 g Pro/kg BW); and 848ml free water. Flush with 25ml q4h for hydration status and to prevent tube from clogging. With flushes, provides 998ml free water. Request that TF order be placed into chart. Will continue to follow and reassess as pt needs, intake, and status change. Kel Diaz MS RD LD [phone] (cell)"
[2020-05-27] VITALS (30 sets, daily range): BP systolic 94–175; BP diastolic 42–94
[2020-05-27] MEDS: ENOXAPARIN 60 MG/0.6 ML (LOVENOX) SYR SC SCH ×3 (01:04→23:25)
[2020-05-27] MEDS: MIDAZOLAM INJECTION FOR DRIPS 50 MG in NS (IVPB) 90 ML IV SCH ×2 (01:54→06:40)
[2020-05-27] MEDS: RT-ALBUTEROL INHALER HFA (VENTOLIN HFA) 18 GM IH SCH ×4 (02:22→19:03)
[2020-05-27 02:39] LABS: ABG BASE EXCESS 9.7 MMOL/L (-2.5-2.5); ABG OXYGEN SATURATION 98 % (94-100); ABG PCO2 48 MMHG (35-45); ABG PH 7.46 (7.37-7.43); ABG PO2 91 MMHG (79-93); ABG TCO2 35.5 MMOL/L (21.0-31.0)
[2020-05-27 02:43] LABS: INSPIRED O2 40%; PATIENT TEMP 36.6; VENTILATOR YES
[2020-05-27 02:50] LABS: BASOPHILS % (AUTO) 0 % (0-10)
[2020-05-27 02:52] LABS: CHLORIDE 102 MMOL/L (98-107); EOSINOPHILS % (AUTO) 1 % (0-10); HEMATOCRIT 33 % (35-52); HEMOGLOBIN 10.4 g/dL (11.5-16.0); LYMPHOCYTES # (AUTO) 0.7 10^3/uL (1.0-4.0); LYMPHOCYTES % (AUTO) 17 % (12-44); MEAN CORPUSCULAR HEMOGLOBIN 31 pg (25-34); MEAN CORPUSCULAR HGB CONC 32 g/dL (32-36); MEAN CORPUSCULAR VOLUME 97 fL (80-99); MEAN PLATELET VOLUME 11.4 fL (9.0-12.2); MONOCYTES # (AUTO) 0.3 10^3/uL (0.0-1.0); MONOCYTES % (AUTO) 6 % (0-12); NEUTROPHILS # (AUTO) 3.2 10^3/uL (1.8-7.8); NEUTROPHILS % (AUTO) 75 % (42-75); PLATELET COUNT 73 10^3/uL (130-400); POTASSIUM 3.7 MMOL/L (3.6-5.0); SODIUM 141 MMOL/L (135-145); WHITE BLOOD COUNT 4.3 10^3/uL (4.3-11.0)
[2020-05-27 02:54] LABS: CALCIUM 7.9 MG/DL (8.5-10.1); GLUCOSE 139 MG/DL (70-105)
[2020-05-27 02:56] LABS: CARBON DIOXIDE 31 MMOL/L (21-32)
[2020-05-27 02:58] LABS: CREATININE SERUM 0.46 MG/DL (0.60-1.30); GFR ESTIMATED > 60; PHOSPHORUS 2.7 MG/DL (2.3-4.7)
[2020-05-27 02:59] LABS: BUN/CREATININE RATIO 24
[2020-05-27 03:01] LABS: MAGNESIUM 1.8 MG/DL (1.6-2.4)
[2020-05-27] MEDS: PROPOFOL DRIP (ICU) 100 ML IV SCH ×3 (03:20→08:05)
[2020-05-27] MEDS: LACTATED RINGERS 1,000 ML IV SCH (03:21)
--- NOTE | 2020-05-27 04:27 | Pulmonary Progress Note ---
Subjective Time Seen by a Provider: 04:22 Subjective/Events-last exam Pt is sedated on vent. Sepsis Event Evaluation Height, Weight, BMI Height: '" Weight: 373lbs. 6.0oz. 169.271154of; 49.98 BMI Method: Exam Exam Vital Signs Date Time Temp Pulse Resp B/P (MAP) Pulse Ox O2 Delivery O2 Flow Rate FiO2 05/27/20 04:00 89 22 138/58 (84) 93 Mechanical Ventilator 40.00 05/27/20 03:20 86 138/56 05/27/20 03:00 85 22 139/56 (83) 96 Mechanical Ventilator 40.00 05/27/20 02:22 86 24 95 40 05/27/20 02:00 85 22 135/55 (81) 95 Mechanical Ventilator 40.00 05/27/20 01:54 86 151/59 05/27/20 01:00 86 05/27/20 01:00 85 21 137/55 (82) 94 Mechanical Ventilator 40.00 05/27/20 00:00 89 22 130/56 (80) 94 Mechanical Ventilator 40.00 05/26/20 23:48 84 157/82 05/26/20 23:48 36.3 05/26/20 23:00 88 19 134/54 (80) 93 Mechanical Ventilator 40.00 05/26/20 22:37 89 24 94 40 05/26/20 22:00 88 22 128/55 (79) 95 Mechanical Ventilator 40.00 05/26/20 21:00 99 22 148/60 (89) 96 Mechanical Ventilator 40.00 05/26/20 21:00 Mechanical Ventilator 40 05/26/20 20:10 36.4 Mechanical Ventilator 40.00 05/26/20 20:02 87 133/56 05/26/20 20:00 88 24 123/54 (77) 94 Mechanical Ventilator 30.00 05/26/20 19:59 85 132/69 05/26/20 19:23 87 24 94 40 05/26/20 19:00 87 21 128/55 (79) 96 Mechanical Ventilator 30.00 05/26/20 19:00 88 05/26/20 18:00 88 22 133/58 (83) 94 Mechanical Ventilator 30.00 05/26/20 17:00 89 29 150/62 (91) 93 Mechanical Ventilator 30.00 05/26/20 16:16 89 146/62 05/26/20 16:15 36.6 05/26/20 16:15 89 22 146/62 05/26/20 16:00 91 27 153/63 (93) 94 Mechanical Ventilator 30.00 05/26/20 15:00 89 40 154/63 (93) 91 Mechanical Ventilator 30.00 05/26/20 14:44 88 24 92 40 05/26/20 14:00 90 19 152/63 (92) 95 Mechanical Ventilator 30.00 05/26/20 13:00 89 142/59 05/26/20 13:00 90 21 140/59 (86) 98 Mechanical Ventilator 30.00 05/26/20 12:39 91 05/26/20 12:00 93 19 159/59 (92) 96 Mechanical Ventilator 30.00 05/26/20 11:49 93 22 165/60 05/26/20 11:00 95 23 169/63 (98) 95 Mechanical Ventilator 30.00 05/26/20 10:57 36.6 05/26/20 10:15 90 22 96 40 05/26/20 10:00 89 22 136/77 (96) 96 Mechanical Ventilator 30.00 05/26/20 09:48 89 147/82 05/26/20 09:00 92 32 147/82 (103) 97 Mechanical Ventilator 30.00 05/26/20 08:39 88 22 96 40 05/26/20 08:00 Mechanical Ventilator 40 05/26/20 08:00 84 21 149/81 (103) 93 Mechanical Ventilator 30.00 05/26/20 07:31 36.8 05/26/20 07:00 79 17 114/64 (81) 93 Mechanical Ventilator 30.00 05/26/20 06:42 81 05/26/20 06:27 84 25 135/77 05/26/20 06:25 84 135/77 05/26/20 06:00 84 25 135/77 (96) 94 Mechanical Ventilator 30.00 05/26/20 05:00 79 26 138/75 (96) 95 Mechanical Ventilator 30.00 I & O 05/27/20 07:00 Intake Total 1446 ml Output Total 1775 ml Balance -329 ml Height & Weight Height: '" Weight: 373lbs. 6.0oz. 169.193786ue; 49.98 BMI Method: General Appearance: Obese, Other (intubated and sedated) HEENT: Other (ETT, OGT) Neck: Full Range of Motion, Normal Inspection, Non Tender, Supple, Carotid Bruit Respiratory: No Crackles; Rhonci; No Wheezing; Other (on vent) Cardiovascular: Regular Rate, Rhythm, No Murmur Capillary Refill: Less Than 3 Seconds Extremity: Normal Capillary Refill, Pedal Edema Neurologic/Psychiatric: Other (sedated, appears comfortable) Skin: Tattoos/Piercings Lymphatic: No Adenopathy Results Lab Laboratory Tests 05/26/20 03:15 05/27/20 02:30 Assessment/Plan Assessment/Plan COVID + /influena A with acute respiratory failure and ARDS Pa02/Fi02 - now improved to 165 -Decrease PEEP to 8 -Lasix 40mg daily -S/p tamiflu and 2 units of convalescent plasma at [facility] [place] -Will do weaning trail today. -daily sedation vacations -Decrease Peep to 10. -s/p Remdesivir -Daily CMPs -decadron to 20mg. - Decrease to 10mg -Recheck PCT, and BNP - TF with pulmicare at 15cc/hr - Trophic feeds. -Continue while proning. -s/p Convalescent plasma x 2 at [facility] [place] -proning at shift changes secondary to BMI -BiPAP PRN Pancytopenia -Monitor Obesity with probable DENNIS hx of brain surgery and seizures -Home seizure meds restarted -Seizure precautions -PRN Ativan Hypokalemia -Replace and recheck Chronic pancytopenia -- Follows with hematology GI and DVT PPX MARY JONES DO May 27, 2020 04:27
[2020-05-27] MEDS: MAGNESIUM 1 GM/100 ML IVPB 100 ML IV SCH (06:39)
[2020-05-27] MEDS: POTASSIUM CL 10MEQ/50ML IVPB 50 ML IV SCH (06:39)
[2020-05-27] MEDS: KCL 20 MEQ TAB (K-DUR) PO SCH (06:39)
[2020-05-27] MEDS: inSUlin ASPART (NovoLOG) 1 UNIT/0.01 ML (CHARGE PER UNIT) SQ SCH ×4 (06:39→23:27)
[2020-05-27] MEDS: NS IV SCH ×6 (07:58→20:32)
[2020-05-27] MEDS: MICRON FILTER IV SCH ×6 (07:58→20:32)
[2020-05-27] MEDS: PHENYTOIN IV SCH ×6 (07:58→20:32)
[2020-05-27] MEDS: MICONAZOLE 2% POWDER (DESENEX AF) 90 GM TOP SCH ×2 (07:59→21:05)
[2020-05-27] MEDS: FUROSEMIDE 40 MG/4 ML INJ (LASIX) IVP SCH (07:59)
[2020-05-27] MEDS: VENLAFAXINE 50 MG (EFFEXOR) TABLET PO SCH ×2 (07:59→21:05)
[2020-05-27] MEDS: PANTOPRAZOLE 40 MG (PROTONIX) VIAL IV SCH (07:59)
[2020-05-27] MEDS: LEVETIRACETAM INJECTION 1,500 MG in NS (IVPB) 100 ML IV SCH ×2 (08:00→20:30)
[2020-05-27] MEDS: ARTIFICIAL TEARS OINT (LACRI-LUBE) 3.5 GM TUBE OU SCH ×2 (08:41→20:32)
--- NOTE | 2020-05-27 10:00 | NUR ---
hold proning per dr higgins.
[2020-05-27] MEDS: DexMEDEtomidine PRE MIX 100 ML IV SCH ×3 (10:34→20:33)
[2020-05-27 12:10] LABS: ABG BASE EXCESS 5.5 MMOL/L (-2.5-2.5); ABG OXYGEN SATURATION 98 % (94-100); ABG PCO2 43 MMHG (35-45); ABG PH 7.45 (7.37-7.43); ABG PO2 102 MMHG (79-93); ABG TCO2 30.7 MMOL/L (21.0-31.0)
[2020-05-27 12:11] LABS: INSPIRED O2 40%; PATIENT TEMP 99.2; VENTILATOR YES
--- NOTE | 2020-05-27 15:08 | NUR ---
"TF FOLLOW-UP Est kcal needs: 1650 kcal | 25 kcal/kg IBW, based on IBW of 65.9 kg (145#) Est Pro needs: 66 g Pro | 1.0 g Pro/kg IBW Note pt currently receiving TF of Pulmocare at rate of 15ml/hr, with flushes of 25ml q4h. During interdisciplinary rounds, plan of care is to possibly wean the patient today. If pt fails weaning processes, would recommend increasing TF toward goal rate of 45ml/hr. Would recommend conservative increases of 10ml q8h as medically able and as tolerated. At goal rate, provides 1620 kcal (10 kcal/kg BW); 68 g Pro (0.4 g Pro/kg BW); and 848ml free water. Flush with 25ml q4h for hydration status and to prevent tube from clogging. With flushes, provides 998ml free water. Request that TF order be placed into chart. Will continue to follow and reassess as pt needs, intake, and status change. Kel Diaz MS RD LD [phone] (cell)"
[2020-05-27] MEDS: meTOprolol TARTRATE 25 MG (LOPRESSOR) TABLET PO SCH (21:05)
[2020-05-28] VITALS (30 sets, daily range): BP systolic 87–130; BP diastolic 37–59
[2020-05-28] MEDS: DexMEDEtomidine PRE MIX 100 ML IV SCH ×7 (00:48→22:38)
[2020-05-28 02:50] LABS: ABG BASE EXCESS 9.1 MMOL/L (-2.5-2.5); ABG OXYGEN SATURATION 94 % (94-100); ABG PCO2 44 MMHG (35-45); ABG PH 7.49 (7.37-7.43); ABG PO2 70 MMHG (79-93); ABG TCO2 34.2 MMOL/L (21.0-31.0)
[2020-05-28] MEDS: RT-ALBUTEROL INHALER HFA (VENTOLIN HFA) 18 GM IH SCH ×4 (02:50→21:46)
[2020-05-28 02:51] LABS: BASOPHILS % (AUTO) 0 % (0-10); EOSINOPHILS % (AUTO) 1 % (0-10); HEMATOCRIT 31 % (35-52); HEMOGLOBIN 10.1 g/dL (11.5-16.0); LYMPHOCYTES # (AUTO) 0.8 10^3/uL (1.0-4.0); LYMPHOCYTES % (AUTO) 17 % (12-44); MEAN CORPUSCULAR HEMOGLOBIN 32 pg (25-34); MEAN CORPUSCULAR HGB CONC 33 g/dL (32-36); MEAN CORPUSCULAR VOLUME 97 fL (80-99); MONOCYTES # (AUTO) 0.3 10^3/uL (0.0-1.0); MONOCYTES % (AUTO) 6 % (0-12); NEUTROPHILS # (AUTO) 3.4 10^3/uL (1.8-7.8); NEUTROPHILS % (AUTO) 75 % (42-75); PLATELET COUNT 56 10^3/uL (130-400); WHITE BLOOD COUNT 4.5 10^3/uL (4.3-11.0)
[2020-05-28 02:52] LABS: ALLENS TEST ART LINE; INSPIRED O2 30%; PATIENT TEMP 37.6; VENTILATOR YES
[2020-05-28 03:00] LABS: CHLORIDE 102 MMOL/L (98-107); POTASSIUM 3.6 MMOL/L (3.6-5.0); SODIUM 139 MMOL/L (135-145)
[2020-05-28 03:01] LABS: CALCIUM 8.1 MG/DL (8.5-10.1)
[2020-05-28 03:02] LABS: GLUCOSE 203 MG/DL (70-105)
[2020-05-28 03:03] LABS: CARBON DIOXIDE 30 MMOL/L (21-32)
[2020-05-28 03:06] LABS: CREATININE SERUM 0.51 MG/DL (0.60-1.30); GFR ESTIMATED > 60
[2020-05-28 03:07] LABS: BUN/CREATININE RATIO 22
[2020-05-28 03:08] LABS: MAGNESIUM 1.5 MG/DL (1.6-2.4)
[2020-05-28] MEDS: MAGNESIUM 1 GM/100 ML IVPB 100 ML IV SCH ×2 (03:58→06:57)
[2020-05-28] MEDS: POTASSIUM CL 10MEQ/50ML IVPB 50 ML IV SCH ×2 (03:58→06:57)
[2020-05-28] MEDS: LACTATED RINGERS 1,000 ML IV SCH (05:26)
--- NOTE | 2020-05-28 06:17 | Pulmonary Progress Note ---
Subjective Time Seen by a Provider: 06:12 Sepsis Event Evaluation Height, Weight, BMI Height: '" Weight: 373lbs. 6.0oz. 169.116200di; 49.98 BMI Method: Exam Exam Vital Signs Date Time Temp Pulse Resp B/P (MAP) Pulse Ox O2 Delivery O2 Flow Rate FiO2 05/28/20 05:26 82 117/53 05/28/20 04:24 36.6 05/28/20 04:00 76 24 115/51 (72) 91 Mechanical Ventilator 40.00 05/28/20 03:21 Mechanical Ventilator 40.00 05/28/20 03:00 81 25 111/52 (71) 92 Mechanical Ventilator 30.00 05/28/20 02:50 80 24 94 30 05/28/20 02:00 75 21 105/50 (68) 92 Mechanical Ventilator 30.00 05/28/20 01:00 73 27 107/50 (69) 92 Mechanical Ventilator 30.00 05/28/20 01:00 73 05/28/20 00:48 73 107/50 05/28/20 00:00 74 23 109/50 (69) 92 Mechanical Ventilator 30.00 05/28/20 00:00 36.4 05/27/20 23:00 75 23 108/50 (69) 95 Mechanical Ventilator 30.00 05/27/20 22:51 72 24 95 30 05/27/20 22:00 70 24 108/51 (70) 96 Mechanical Ventilator 30.00 05/27/20 21:00 68 23 108/54 (72) 96 Mechanical Ventilator 30.00 05/27/20 21:00 Mechanical Ventilator 30 05/27/20 20:34 36.7 Mechanical Ventilator 30.00 05/27/20 20:33 69 111/54 05/27/20 20:00 71 24 94/42 (59) 97 Mechanical Ventilator 30.00 05/27/20 19:03 73 24 97 30 05/27/20 19:00 80 05/27/20 19:00 72 24 107/47 (67) 98 Mechanical Ventilator 30.00 05/27/20 18:00 72 23 105/47 (66) 98 Mechanical Ventilator 30.00 05/27/20 17:00 71 24 101/45 (63) 98 Mechanical Ventilator 30.00 05/27/20 16:00 73 27 104/47 (66) 98 Mechanical Ventilator 30.00 05/27/20 15:58 37.2 05/27/20 15:00 81 25 104/48 (66) 98 Mechanical Ventilator 30.00 05/27/20 14:57 80 98/48 05/27/20 14:02 79 23 100 40 05/27/20 14:00 80 44 109/49 (69) 100 Mechanical Ventilator 40.00 05/27/20 13:07 87 05/27/20 13:00 86 28 117/51 (73) 96 Mechanical Ventilator 40.00 05/27/20 12:00 86 18 102/44 (63) 98 Mechanical Ventilator 40.00 05/27/20 12:00 37.3 05/27/20 11:00 93 10 110/49 (69) 97 Mechanical Ventilator 40.00 05/27/20 10:34 114 27 165/61 97 40.00 05/27/20 10:30 114 29 97 40 05/27/20 10:00 116 29 143/58 (86) 97 Mechanical Ventilator 40.00 05/27/20 09:00 104 27 175/78 (110) 96 Mechanical Ventilator 40.00 05/27/20 08:45 Mechanical Ventilator 40 05/27/20 08:05 87 163/75 05/27/20 08:00 36.7 104 32 147/70 (95) 94 Mechanical Ventilator 40.00 05/27/20 07:07 90 25 95 40 05/27/20 07:05 92 05/27/20 07:00 90 21 174/79 (110) 93 Mechanical Ventilator 40.00 05/27/20 06:41 92 165/61 05/27/20 06:40 91 150/98 I & O 05/28/20 07:00 Output Total 2130 ml Balance -2130 ml Height & Weight Height: '" Weight: 373lbs. 6.0oz. 169.471576ln; 49.98 BMI Method: General Appearance: Obese, Other (intubated and sedated) HEENT: Other (ETT, OGT) Neck: Full Range of Motion, Normal Inspection, Non Tender, Supple, Carotid Bruit Respiratory: No Crackles; Rhonci; No Wheezing; Other (on vent) Cardiovascular: Regular Rate, Rhythm, No Murmur Capillary Refill: Less Than 3 Seconds Extremity: Normal Capillary Refill, Pedal Edema Neurologic/Psychiatric: Other (sedated, appears comfortable) Skin: Tattoos/Piercings Lymphatic: No Adenopathy Results Lab Laboratory Tests 05/27/20 02:30 05/28/20 02:37 Assessment/Plan Assessment/Plan COVID + /influena A with acute respiratory failure and ARDS Pa02/Fi02 - now improved to 165 -PEEP to 5 -Will do weaning trial -Hold sedation. -Lasix 40mg daily -S/p [place]iflu [place] 2 [place] [facility] [place] sed[place] vacations -Decrease Peep to 10. -s/p Remdesivir -Daily CMPs -decadron to 20mg. - Decrease to 10mg - TF with pulmicare at 15cc/hr - Trophic feeds. -Continue while proning. -s/p [place]val[place] 2 [place] [facility] [place]proning at shift changes secondary to BMI -BiPAP PRN Pancytopenia -Monitor Obesity with probable DENNIS hx of brain surgery and seizures -Home seizure meds restarted -Seizure precautions -PRN Ativan Hypokalemia -Replace and recheck Chronic pancytopenia -- Follows with hematology GI and DVT PPX MARY JONES DO May 28, 2020 06:17
[2020-05-28] MEDS: FUROSEMIDE 40 MG/4 ML INJ (LASIX) IVP SCH (06:57)
[2020-05-28] MEDS: inSUlin ASPART (NovoLOG) 1 UNIT/0.01 ML (CHARGE PER UNIT) SQ SCH ×4 (06:57→23:20)
[2020-05-28] MEDS: KCL 20 MEQ TAB (K-DUR) PO SCH (06:57)
[2020-05-28] MEDS: ACETAMINOPHEN 325 MG TABLET PO PRN (08:07)
[2020-05-28] MEDS: METOCLOPRAMIDE INJ 10 MG/2 ML (REGLAN) IVP SCH (08:07)
[2020-05-28] MEDS: LEVETIRACETAM INJECTION 1,500 MG in NS (IVPB) 100 ML IV SCH ×2 (08:07→21:15)
[2020-05-28] MEDS: PANTOPRAZOLE 40 MG (PROTONIX) VIAL IV SCH (08:07)
[2020-05-28] MEDS: VENLAFAXINE 50 MG (EFFEXOR) TABLET PO SCH ×2 (08:07→21:16)
[2020-05-28] MEDS: NS IV SCH ×6 (08:08→21:15)
[2020-05-28] MEDS: PHENYTOIN IV SCH ×6 (08:08→21:15)
[2020-05-28] MEDS: MICRON FILTER IV SCH ×6 (08:08→21:15)
[2020-05-28] MEDS: meTOprolol TARTRATE 25 MG (LOPRESSOR) TABLET PO SCH ×2 (08:09→21:17)
[2020-05-28] MEDS: ARTIFICIAL TEARS OINT (LACRI-LUBE) 3.5 GM TUBE OU SCH ×2 (08:47→21:17)
[2020-05-28] MEDS: MICONAZOLE 2% POWDER (DESENEX AF) 90 GM TOP SCH ×2 (08:47→21:18)
[2020-05-28 08:50] LABS: ABG BASE EXCESS 7.9 MMOL/L (-2.5-2.5); ABG OXYGEN SATURATION 96 % (94-100); ABG PCO2 51 MMHG (35-45); ABG PH 7.43 (7.37-7.43); ABG PO2 92 MMHG (79-93); ABG TCO2 33.4 MMOL/L (21.0-31.0)
[2020-05-28 08:51] LABS: ALLENS TEST ART LINE; INSPIRED O2 50%; PATIENT TEMP 39; VENTILATOR YES
[2020-05-28] MEDS ORDERED: PHARMACY TO DOSE IV SCH (09:15)
[2020-05-28] MEDS ORDERED: FLUCONAZOLE 200 MG/100 ML 100 ML IV NR (09:15)
[2020-05-28] MEDS ORDERED: PROPOFOL DRIP (ICU) 100 ML IV ONE (09:21)
--- NOTE | 2020-05-28 09:26 | NUR ---
pt was returned back to AC mode on vent after becoming hypotensive and running a temp of 39.1.
[2020-05-28] MEDS: PROPOFOL DRIP (ICU) 100 ML IV SCH ×6 (09:37→22:35)
[2020-05-28] MEDS: VANCOMYCIN 1500 MG/NS 500 ML IVPB IV SCH ×4 (09:48→17:21)
[2020-05-28] MEDS: MEROPENEM 500 MG in WATER (STERILE) FOR INJECTION 10 ML IV SCH ×3 (09:49→21:16)
[2020-05-28] MEDS: ENOXAPARIN 60 MG/0.6 ML (LOVENOX) SYR SC SCH (13:00)
--- NOTE | 2020-05-28 13:38 | NUR ---
"TF FOLLOW-UP Est kcal needs: 1650 kcal | 25 kcal/kg IBW, based on IBW of 65.9 kg (145#) Est Pro needs: 66 g Pro | 1.0 g Pro/kg IBW Note pt currently receiving TF of Pulmocare at rate of 25ml/hr, with flushes of 25ml q4h. Would recommend conservative increases of 10ml q8h as tolerated, toward goal rate of 45ml/hr. At goal rate, provides 1620 kcal (10 kcal/kg BW); 68 g Pro (0.4 g Pro/kg BW); and 848ml free water. Flush with 25ml q4h for hydration status and to prevent tube from clogging. With flushes, provides 998ml free water. Will continue to follow and reassess as pt needs, intake, and status change. Kel Diaz, MS RD LD [phone] (cell)"
[2020-05-28] MEDS ORDERED: LACTATED RINGERS 1,000 ML IV ONE (18:00)
[2020-05-29] VITALS (30 sets, daily range): BP systolic 101–156; BP diastolic 45–78
[2020-05-29] MEDS: ENOXAPARIN 60 MG/0.6 ML (LOVENOX) SYR SC SCH ×2 (01:44→15:27)
[2020-05-29] MEDS: VANCOMYCIN 1500 MG/NS 500 ML IVPB IV SCH ×6 (01:44→17:50)
[2020-05-29] MEDS: PROPOFOL DRIP (ICU) 100 ML IV SCH ×7 (01:55→22:35)
[2020-05-29] MEDS: RT-ALBUTEROL INHALER HFA (VENTOLIN HFA) 18 GM IH SCH ×4 (02:03→21:37)
[2020-05-29 02:24] LABS: ABG BASE EXCESS 6.2 MMOL/L (-2.5-2.5); ABG OXYGEN SATURATION 93 % (94-100); ABG PCO2 45 MMHG (35-45); ABG PH 7.44 (7.37-7.43); ABG PO2 68 MMHG (79-93); ABG TCO2 31.7 MMOL/L (21.0-31.0)
[2020-05-29 02:29] LABS: ALLENS TEST ART LINE; INSPIRED O2 40%; PATIENT TEMP 37.1; VENTILATOR YES
[2020-05-29 02:30] LABS: CHLORIDE 103 MMOL/L (98-107); POTASSIUM 3.4 MMOL/L (3.6-5.0); SODIUM 137 MMOL/L (135-145)
[2020-05-29 02:31] LABS: CALCIUM 7.9 MG/DL (8.5-10.1)
[2020-05-29 02:32] LABS: GLUCOSE 250 MG/DL (70-105)
[2020-05-29 02:33] LABS: CARBON DIOXIDE 26 MMOL/L (21-32)
[2020-05-29 02:36] LABS: CREATININE SERUM 0.51 MG/DL (0.60-1.30); GFR ESTIMATED > 60; PHOSPHORUS 1.8 MG/DL (2.3-4.7)
[2020-05-29 02:37] LABS: BUN/CREATININE RATIO 18
[2020-05-29 02:38] LABS: MAGNESIUM 1.6 MG/DL (1.6-2.4)
[2020-05-29 03:14] LABS: BASOPHILS % (AUTO) 0 % (0-10); EOSINOPHILS % (AUTO) 1 % (0-10); HEMATOCRIT 33 % (35-52); HEMOGLOBIN 10.3 g/dL (11.5-16.0); LYMPHOCYTES # (AUTO) 0.7 10^3/uL (1.0-4.0); LYMPHOCYTES % (AUTO) 17 % (12-44); MEAN CORPUSCULAR HEMOGLOBIN 31 pg (25-34); MEAN CORPUSCULAR HGB CONC 32 g/dL (32-36); MEAN CORPUSCULAR VOLUME 99 fL (80-99); MEAN PLATELET VOLUME 12.3 fL (9.0-12.2); MONOCYTES # (AUTO) 0.2 10^3/uL (0.0-1.0); MONOCYTES % (AUTO) 5 % (0-12); NEUTROPHILS # (AUTO) 3.1 10^3/uL (1.8-7.8); NEUTROPHILS % (AUTO) 76 % (42-75); PLATELET COUNT 61 10^3/uL (130-400); WHITE BLOOD COUNT 4.1 10^3/uL (4.3-11.0)
[2020-05-29] MEDS: LACTATED RINGERS 1,000 ML IV SCH (03:51)
[2020-05-29] MEDS: MEROPENEM 500 MG in WATER (STERILE) FOR INJECTION 10 ML IV SCH ×4 (03:51→20:44)
[2020-05-29] MEDS: DexMEDEtomidine PRE MIX 100 ML IV SCH ×5 (03:54→23:45)
--- NOTE | 2020-05-29 05:41 | Pulmonary Progress Note ---
Subjective Time Seen by a Provider: 05:39 Subjective/Events-last exam Pt sedated on vent. Sepsis Event Evaluation Height, Weight, BMI Height: '" Weight: 373lbs. 6.0oz. 169.131450ae; 49.98 BMI Method: Exam Exam Vital Signs Date Time Temp Pulse Resp B/P (MAP) Pulse Ox O2 Delivery O2 Flow Rate FiO2 05/29/20 04:00 37.3 61 22 111/52 (71) 100 Mechanical Ventilator 40.00 05/29/20 03:54 37.3 62 111/51 Mechanical Ventilator 40.00 05/29/20 03:00 37.4 62 19 109/50 (69) 94 Mechanical Ventilator 40.00 05/29/20 02:30 Mechanical Ventilator 40.00 05/29/20 02:03 66 25 93 50 05/29/20 02:00 37.4 67 24 111/50 (70) 97 Mechanical Ventilator 50.00 05/29/20 01:55 67 108/65 05/29/20 01:00 62 05/29/20 01:00 37.1 61 21 110/53 (72) 97 Mechanical Ventilator 50.00 05/29/20 00:00 37.0 61 21 113/54 (73) 99 Mechanical Ventilator 50.00 05/28/20 23:00 37.0 64 22 109/52 (71) 98 Mechanical Ventilator 50.00 05/28/20 22:38 37.1 64 24 118/54 Mechanical Ventilator 50.00 05/28/20 22:36 37.1 64 118/54 05/28/20 22:35 64 118/54 05/28/20 22:00 37.0 64 24 112/57 (75) 98 Mechanical Ventilator 50.00 05/28/20 21:46 63 22 99 50 05/28/20 21:00 37.0 61 19 114/54 (74) 96 Mechanical Ventilator 50.00 05/28/20 21:00 Mechanical Ventilator 50 05/28/20 20:07 62 119/57 05/28/20 20:00 36.9 61 20 121/58 (79) 100 Mechanical Ventilator 50.00 05/28/20 19:00 37.2 61 20 116/55 (75) 99 Mechanical Ventilator 50.00 05/28/20 19:00 62 05/28/20 18:41 61 20 100 50 05/28/20 18:00 37.3 64 21 106/47 (66) 99 Mechanical Ventilator 40.00 05/28/20 17:45 37.3 65 22 115/56 99 Mechanical Ventilator 50.00 05/28/20 17:44 65 115/56 05/28/20 17:00 37.3 65 22 115/56 (75) 99 Mechanical Ventilator 50.00 05/28/20 16:00 37.4 65 20 113/54 (73) 99 Mechanical Ventilator 50.00 05/28/20 15:42 68 112/56 05/28/20 15:28 Mechanical Ventilator 50.00 05/28/20 15:28 37.7 68 38 112/56 99 Mechanical Ventilator 50.00 05/28/20 15:00 37.7 68 38 112/56 (74) 99 Mechanical Ventilator 40.00 05/28/20 14:00 37.7 74 28 93/59 (70) 91 Mechanical Ventilator 40.00 05/28/20 13:50 71 30 94 50 05/28/20 13:40 80 118/54 05/28/20 13:00 37.6 80 25 118/54 93 Mechanical Ventilator 50.00 05/28/20 13:00 80 25 118/53 (74) 94 Mechanical Ventilator 40.00 05/28/20 12:39 71 05/28/20 12:00 67 20 111/54 (73) 96 Mechanical Ventilator 40.00 05/28/20 11:00 74 22 130/57 (81) 96 Mechanical Ventilator 40.00 05/28/20 09:37 80 100/40 05/28/20 09:32 Mechanical Ventilator 50 05/28/20 09:27 38.2 05/28/20 09:07 80 30 95 50 05/28/20 09:00 85 36 92/42 (59) 91 Mechanical Ventilator 40.00 05/28/20 08:48 Mechanical Ventilator 50 05/28/20 08:37 39.0 05/28/20 08:13 95 36 95 05/28/20 08:07 39.1 05/28/20 08:00 97 16 119/54 (75) 95 Mechanical Ventilator 40.00 05/28/20 07:44 39.1 05/28/20 07:00 83 31 129/55 (79) 91 Mechanical Ventilator 40.00 05/28/20 07:00 86 05/28/20 06:36 81 35 87 40 05/28/20 06:00 96 30 118/54 (75) 90 Mechanical Ventilator 40.00 I & O 05/29/20 07:00 Intake Total 4051 ml Output Total 1620 ml Balance 2431 ml Height & Weight Height: '" Weight: 373lbs. 6.0oz. 169.236924ws; 49.98 BMI Method: General Appearance: Obese, Other (intubated and sedated) HEENT: Other (ETT, OGT) Neck: Full Range of Motion, Normal Inspection, Non Tender, Supple, Carotid Bruit Respiratory: No Crackles; Rhonci; No Wheezing; Other (on vent) Cardiovascular: Regular Rate, Rhythm, No Murmur Capillary Refill: Less Than 3 Seconds Extremity: Normal Capillary Refill, Pedal Edema Neurologic/Psychiatric: Other (sedated, appears comfortable) Skin: Tattoos/Piercings Lymphatic: No Adenopathy Results Lab Laboratory Tests 05/28/20 02:37 05/29/20 01:56 Assessment/Plan Assessment/Plan COVID + /influena A with acute respiratory failure and ARDS Pa02/Fi02 - now improved to 165 -PEEP to 5 -Will do weaning trial - Will not extubate today secondary to sputum. -Pt has had copious amounts of sputum. -Hold sedation. -Lasix 40mg daily -S/p tamiflu and 2 units of convalescent plasma at [facility] [place] -daily sedation vacations -Increase Lasix to Q12 -Decrease Peep to 10. -s/p Remdesivir -Daily CMPs -decadron to 20mg. - Decrease to 10mg - TF with pulmicare at 15cc/hr - Trophic feeds. -Continue while proning. -s/p Convalescent plasma x 2 at [facility] [place] -proning at shift changes secondary to BMI -BiPAP PRN Pancytopenia -Monitor Obesity with probable DENNIS hx of brain surgery and seizures -Home seizure meds restarted -Seizure precautions -PRN Ativan Hypokalemia -Replace and recheck Chronic pancytopenia -- Follows with hematology GI and DVT PPX MARY JONES DO May 29, 2020 05:41
[2020-05-29] MEDS: POTASSIUM CL 10MEQ/50ML IVPB 50 ML IV SCH (06:07)
[2020-05-29] MEDS: KCL 20 MEQ TAB (K-DUR) PO SCH (06:07)
[2020-05-29] MEDS: MAGNESIUM 1 GM/100 ML IVPB 100 ML IV SCH ×3 (06:07→07:52)
[2020-05-29] MEDS: inSUlin ASPART (NovoLOG) 1 UNIT/0.01 ML (CHARGE PER UNIT) SQ SCH ×4 (07:01→23:47)
[2020-05-29] MEDS ORDERED: POTASSIUM PHOSPHATE INJ 30 MM in NS (IVPB) 250 ML IV ONE (08:00)
[2020-05-29] MEDS: METOCLOPRAMIDE INJ 10 MG/2 ML (REGLAN) IVP SCH (08:05)
[2020-05-29] MEDS: PANTOPRAZOLE 40 MG (PROTONIX) VIAL IV SCH (08:05)
[2020-05-29] MEDS: LEVETIRACETAM INJECTION 1,500 MG in NS (IVPB) 100 ML IV SCH ×2 (08:05→20:33)
[2020-05-29] MEDS: FUROSEMIDE 40 MG/4 ML INJ (LASIX) IVP SCH (08:05)
[2020-05-29] MEDS: FLUCONAZOLE 200 MG/100 ML 50 ML, EMPTY IV BAG (PVC) 1 EA IV SCH ×2 (08:06)
[2020-05-29] MEDS: MICRON FILTER IV SCH ×6 (08:18→20:58)
[2020-05-29] MEDS: meTOprolol TARTRATE 25 MG (LOPRESSOR) TABLET PO SCH ×2 (08:18→20:54)
[2020-05-29] MEDS: NS IV SCH ×6 (08:18→20:58)
[2020-05-29] MEDS: PHENYTOIN IV SCH ×6 (08:18→20:58)
[2020-05-29] MEDS: ARTIFICIAL TEARS OINT (LACRI-LUBE) 3.5 GM TUBE OU SCH ×2 (08:18→20:44)
[2020-05-29 08:39] LABS: ABG BASE EXCESS 6.2 MMOL/L (-2.5-2.5); ABG OXYGEN SATURATION 93 % (94-100); ABG PCO2 45 MMHG (35-45); ABG PH 7.44 (7.37-7.43); ABG PO2 66 MMHG (79-93); ABG TCO2 31.6 MMOL/L (21.0-31.0)
[2020-05-29 08:40] LABS: ALLENS TEST ART LINE; INSPIRED O2 40%; PATIENT TEMP 37.6; VENTILATOR YES
[2020-05-29] MEDS ORDERED: TROUGH ORDER-PHARMACY XX ONE (09:00)
[2020-05-29] MEDS: VENLAFAXINE 50 MG (EFFEXOR) TABLET PO SCH ×2 (09:24→20:54)
[2020-05-29] MEDS: MICONAZOLE 2% POWDER (DESENEX AF) 90 GM TOP SCH ×2 (09:24→21:16)
[2020-05-30] VITALS (31 sets, daily range): BP systolic 103–136; BP diastolic 45–68
[2020-05-30] MEDS: PROPOFOL DRIP (ICU) 100 ML IV SCH ×8 (00:57→23:39)
[2020-05-30] MEDS: ENOXAPARIN 60 MG/0.6 ML (LOVENOX) SYR SC SCH ×2 (00:58→15:01)
[2020-05-30] MEDS: RT-ALBUTEROL INHALER HFA (VENTOLIN HFA) 18 GM IH SCH ×4 (02:03→20:08)
[2020-05-30] MEDS: DexMEDEtomidine PRE MIX 100 ML IV SCH ×7 (02:16→23:17)
[2020-05-30] MEDS: MEROPENEM 500 MG in WATER (STERILE) FOR INJECTION 10 ML IV SCH ×4 (02:52→20:34)
[2020-05-30] MEDS: VANCOMYCIN 1500 MG/NS 500 ML IVPB IV SCH ×6 (02:52→17:02)
[2020-05-30] MEDS: LACTATED RINGERS 1,000 ML IV SCH ×2 (02:58→20:52)
[2020-05-30 03:21] LABS: ABG BASE EXCESS 4.7 MMOL/L (-2.5-2.5); ABG OXYGEN SATURATION 100 % (94-100); ABG PCO2 45 MMHG (35-45); ABG PH 7.42 (7.37-7.43); ABG PO2 146 MMHG (79-93)
[2020-05-30 03:24] LABS: BASOPHILS % (AUTO) 0 % (0-10); EOSINOPHILS # (AUTO) 0.1 10^3/uL (0.0-0.3); EOSINOPHILS % (AUTO) 2 % (0-10); HEMATOCRIT 32 % (35-52); HEMOGLOBIN 10.2 g/dL (11.5-16.0); INSPIRED O2 40; LYMPHOCYTES # (AUTO) 0.7 10^3/uL (1.0-4.0); LYMPHOCYTES % (AUTO) 20 % (12-44); MEAN CORPUSCULAR HEMOGLOBIN 31 pg (25-34); MEAN CORPUSCULAR HGB CONC 32 g/dL (32-36); MEAN CORPUSCULAR VOLUME 98 fL (80-99); MEAN PLATELET VOLUME 11.1 fL (9.0-12.2); MONOCYTES # (AUTO) 0.2 10^3/uL (0.0-1.0); MONOCYTES % (AUTO) 7 % (0-12); NEUTROPHILS # (AUTO) 2.4 10^3/uL (1.8-7.8); NEUTROPHILS % (AUTO) 71 % (42-75); PATIENT TEMP 38.1; PLATELET COUNT 77 10^3/uL (130-400); VENTILATOR YES; WHITE BLOOD COUNT 3.4 10^3/uL (4.3-11.0)
[2020-05-30] MEDS: KCL 20 MEQ TAB (K-DUR) PO SCH (03:54)
[2020-05-30] MEDS: POTASSIUM CL 10MEQ/50ML IVPB 50 ML IV SCH ×4 (03:54→20:43)
[2020-05-30] MEDS: MAGNESIUM 1 GM/100 ML IVPB 100 ML IV SCH ×3 (03:54→06:30)
[2020-05-30 03:56] LABS: BUN/CREATININE RATIO 19; CALCIUM 7.9 MG/DL (8.5-10.1); CARBON DIOXIDE 24 MMOL/L (21-32); CHLORIDE 104 MMOL/L (98-107); CREATININE SERUM 0.54 MG/DL (0.60-1.30); GFR ESTIMATED > 60; GLUCOSE 248 MG/DL (70-105); MAGNESIUM 1.7 MG/DL (1.6-2.4); PHOSPHORUS 2.4 MG/DL (2.3-4.7); POTASSIUM 3.8 MMOL/L (3.6-5.0); SODIUM 139 MMOL/L (135-145); TRIGLYCERIDES 279 MG/DL (<150)
[2020-05-30] MEDS: inSUlin ASPART (NovoLOG) 1 UNIT/0.01 ML (CHARGE PER UNIT) SQ SCH ×4 (04:11→23:39)
[2020-05-30] MEDS: VENLAFAXINE 50 MG (EFFEXOR) TABLET PO SCH ×2 (08:28→20:56)
[2020-05-30] MEDS: LEVETIRACETAM INJECTION 1,500 MG in NS (IVPB) 100 ML IV SCH ×2 (08:28→20:39)
[2020-05-30] MEDS: PHENYTOIN IV SCH ×6 (08:29→20:43)
[2020-05-30] MEDS: NS IV SCH ×6 (08:29→20:43)
[2020-05-30] MEDS: PANTOPRAZOLE 40 MG (PROTONIX) VIAL IV SCH (08:29)
[2020-05-30] MEDS: FUROSEMIDE 40 MG/4 ML INJ (LASIX) IVP SCH ×2 (08:29→20:35)
[2020-05-30] MEDS: MICRON FILTER IV SCH ×6 (08:29→20:43)
[2020-05-30] MEDS: METOCLOPRAMIDE INJ 10 MG/2 ML (REGLAN) IVP SCH (08:30)
[2020-05-30] MEDS: MICONAZOLE 2% POWDER (DESENEX AF) 90 GM TOP SCH ×2 (08:53→20:36)
[2020-05-30] MEDS: ARTIFICIAL TEARS OINT (LACRI-LUBE) 3.5 GM TUBE OU SCH ×2 (08:53→20:35)
[2020-05-30] MEDS: FLUCONAZOLE 200 MG/100 ML 50 ML, EMPTY IV BAG (PVC) 1 EA IV SCH ×2 (08:53)
[2020-05-30] MEDS: meTOprolol TARTRATE 25 MG (LOPRESSOR) TABLET PO SCH ×2 (08:53→20:35)
--- NOTE | 2020-05-30 09:30 | Diagnostic Imaging Report ---
EXAMINATION: Chest radiograph, portable AP view. DATE: 05/30/2020 9:14 AM hours. INDICATION: 55-year-old female, shortness of breath. The patient is COVID positive. COMPARISON: May 26, 2020. FINDINGS: There are technical limitations of the exam relating to patient body habitus and difficulties with exposure. Nasogastric tube extends below the included field of view. The endotracheal tube is approximately 2.1 cm above the teddy. There is a left-sided central venous line overlying the brachiocephalic vein. Stable overall appearance of the cardiomediastinal silhouette. Lung volumes are somewhat low. There is no identified pneumothorax. There is multifocal bilateral lung consolidation which is similar to the comparison study. IMPRESSION: 1. Grossly unchanged multifocal bilateral lung consolidation and somewhat low lung volumes. 2. Support lines and tubes as above. Dictated by: Dictated on workstation # [id number]
[2020-05-31] VITALS (26 sets, daily range): BP systolic 48–136; BP diastolic 34–62
[2020-05-31] MEDS: DexMEDEtomidine PRE MIX 100 ML IV SCH ×2 (01:40→06:16)
[2020-05-31] MEDS: MEROPENEM 500 MG in WATER (STERILE) FOR INJECTION 10 ML IV SCH (02:01)
[2020-05-31] MEDS: VANCOMYCIN 1500 MG/NS 500 ML IVPB IV SCH ×8 (02:02→20:44)
[2020-05-31] MEDS: ENOXAPARIN 60 MG/0.6 ML (LOVENOX) SYR SC SCH ×3 (02:02→23:21)
[2020-05-31] MEDS: PROPOFOL DRIP (ICU) 100 ML IV SCH ×2 (02:24→06:17)
[2020-05-31 02:31] LABS: ABG BASE EXCESS 7.6 MMOL/L (-2.5-2.5); ABG OXYGEN SATURATION 99 % (94-100); ABG PCO2 43 MMHG (35-45); ABG PH 7.48 (7.37-7.43); ABG PO2 135 MMHG (79-93); ABG TCO2 32.5 MMOL/L (21.0-31.0)
[2020-05-31 02:34] LABS: ALLENS TEST ART LINE; INSPIRED O2 40%; VENTILATOR YES
[2020-05-31 02:35] LABS: PATIENT TEMP 37.8
[2020-05-31 02:36] LABS: BASOPHILS % (AUTO) 0 % (0-10); EOSINOPHILS # (AUTO) 0.1 10^3/uL (0.0-0.3); EOSINOPHILS % (AUTO) 1 % (0-10); HEMATOCRIT 32 % (35-52); HEMOGLOBIN 10.3 g/dL (11.5-16.0); LYMPHOCYTES # (AUTO) 0.9 10^3/uL (1.0-4.0); LYMPHOCYTES % (AUTO) 25 % (12-44); MEAN CORPUSCULAR HEMOGLOBIN 31 pg (25-34); MEAN CORPUSCULAR HGB CONC 32 g/dL (32-36); MEAN CORPUSCULAR VOLUME 96 fL (80-99); MEAN PLATELET VOLUME 11.1 fL (9.0-12.2); MONOCYTES # (AUTO) 0.3 10^3/uL (0.0-1.0); MONOCYTES % (AUTO) 7 % (0-12); NEUTROPHILS # (AUTO) 2.3 10^3/uL (1.8-7.8); NEUTROPHILS % (AUTO) 66 % (42-75); PLATELET COUNT 74 10^3/uL (130-400); WHITE BLOOD COUNT 3.6 10^3/uL (4.3-11.0)
[2020-05-31 02:45] LABS: CHLORIDE 101 MMOL/L (98-107); POTASSIUM 3.8 MMOL/L (3.6-5.0); SODIUM 138 MMOL/L (135-145)
[2020-05-31 02:46] LABS: CALCIUM 7.9 MG/DL (8.5-10.1)
[2020-05-31 02:47] LABS: GLUCOSE 219 MG/DL (70-105)
[2020-05-31 02:48] LABS: CARBON DIOXIDE 27 MMOL/L (21-32)
[2020-05-31 02:50] LABS: PHOSPHORUS 2.4 MG/DL (2.3-4.7)
[2020-05-31] MEDS: RT-ALBUTEROL INHALER HFA (VENTOLIN HFA) 18 GM IH SCH ×4 (02:50→18:13)
[2020-05-31 02:51] LABS: BUN/CREATININE RATIO 18; GFR ESTIMATED > 60
[2020-05-31 02:53] LABS: MAGNESIUM 1.6 MG/DL (1.6-2.4)
--- NOTE | 2020-05-31 05:28 | Pulmonary Progress Note ---
Subjective Time Seen by a Provider: 05:23 Subjective/Events-last exam Sedated on vent currently. Sepsis Event Evaluation Height, Weight, BMI Height: '" Weight: 373lbs. 6.0oz. 169.281771qg; 49.98 BMI Method: Exam Exam Vital Signs Date Time Temp Pulse Resp B/P (MAP) Pulse Ox O2 Delivery O2 Flow Rate FiO2 05/31/20 04:44 Mechanical Ventilator 30.00 05/31/20 04:43 37.9 05/31/20 04:00 64 17 112/52 (72) 95 Mechanical Ventilator 40.00 05/31/20 03:00 64 23 114/53 (73) 96 Mechanical Ventilator 40.00 05/31/20 02:50 65 18 95 40 05/31/20 02:25 37.8 05/31/20 02:24 66 112/54 05/31/20 02:06 Mechanical Ventilator 40.00 05/31/20 02:00 65 18 112/53 (72) 99 Mechanical Ventilator 45.00 05/31/20 01:40 66 18 112/54 Mechanical Ventilator 45.00 05/31/20 01:00 66 05/31/20 01:00 66 17 109/51 (70) 98 Mechanical Ventilator 45.00 05/31/20 00:23 37.6 05/31/20 00:00 67 17 108/51 (70) 93 Mechanical Ventilator 45.00 05/30/20 23:55 65 18 92 55 05/30/20 23:39 64 116/56 05/30/20 23:17 36.9 64 17 116/56 95 Mechanical Ventilator 40.00 05/30/20 23:00 64 17 116/56 (76) 95 Mechanical Ventilator 45.00 05/30/20 22:00 64 15 120/58 (78) 97 Mechanical Ventilator 45.00 05/30/20 21:43 63 18 120/61 (80) 98 Mechanical Ventilator 45.00 05/30/20 21:03 36.9 62 18 127/59 99 Mechanical Ventilator 40.00 05/30/20 21:00 64 17 125/63 (83) 100 Mechanical Ventilator 55.00 05/30/20 21:00 Mechanical Ventilator 45 05/30/20 20:48 62 127/59 05/30/20 20:08 62 18 99 55 05/30/20 20:00 63 17 123/58 (79) 99 Mechanical Ventilator 55.00 05/30/20 19:21 36.9 05/30/20 19:00 61 05/30/20 19:00 61 18 131/61 (84) 100 Mechanical Ventilator 55.00 05/30/20 18:45 68 116/54 05/30/20 18:00 68 18 116/54 (74) 98 Mechanical Ventilator 40.00 05/30/20 17:00 37.7 60 17 117/55 (75) 98 Mechanical Ventilator 40.00 05/30/20 16:00 37.7 67 18 128/60 (82) 99 Mechanical Ventilator 40.00 05/30/20 15:00 37.7 71 17 117/55 (75) 98 Mechanical Ventilator 40.00 05/30/20 14:25 65 20 97 55 05/30/20 14:00 65 19 111/46 (67) 97 Mechanical Ventilator 40.00 05/30/20 13:51 38.1 65 21 135/63 95 Mechanical Ventilator 40.00 05/30/20 13:51 38.1 65 21 135/63 95 Mechanical Ventilator 40.00 05/30/20 13:07 65 135/63 05/30/20 13:00 61 21 135/62 (86) 95 Mechanical Ventilator 40.00 05/30/20 12:58 65 05/30/20 12:00 65 21 136/63 (87) 93 Mechanical Ventilator 40.00 05/30/20 11:00 64 18 135/63 (87) 90 Mechanical Ventilator 40.00 05/30/20 10:52 64 21 93 55 05/30/20 10:00 62 17 128/61 (83) 93 Mechanical Ventilator 40.00 05/30/20 09:00 Mechanical Ventilator 55 05/30/20 09:00 64 18 133/65 (87) 94 Mechanical Ventilator 40.00 05/30/20 08:55 38.1 66 18 112/50 99 Mechanical Ventilator 40.00 05/30/20 08:55 38.1 66 18 112/50 99 Mechanical Ventilator 40.00 05/30/20 08:28 66 112/50 05/30/20 08:00 66 18 112/50 (70) 99 Mechanical Ventilator 40.00 05/30/20 07:00 68 05/30/20 07:00 38.1 66 17 118/60 (79) 92 Mechanical Ventilator 40.00 05/30/20 06:31 67 18 92 55 05/30/20 06:20 38.0 67 18 121/61 92 Mechanical Ventilator 40.00 05/30/20 06:00 38.0 69 22 116/59 (78) 92 Mechanical Ventilator 55.00 05/30/20 05:33 66 136/68 I & O 05/31/20 07:00 Intake Total 2101 ml Output Total 4600 ml Balance -2499 ml Height & Weight Height: '" Weight: 373lbs. 6.0oz. 169.718791dk; 49.98 BMI Method: General Appearance: Obese, Other (intubated and sedated) HEENT: Other (ETT, OGT) Neck: Full Range of Motion, Normal Inspection, Non Tender, Supple, Carotid Bruit Respiratory: No Crackles; Rhonci; No Wheezing; Other (on vent) Cardiovascular: Regular Rate, Rhythm, No Murmur Capillary Refill: Less Than 3 Seconds Extremity: Normal Capillary Refill, Pedal Edema Neurologic/Psychiatric: Other (sedated, appears comfortable) Skin: Tattoos/Piercings Lymphatic: No Adenopathy Results Lab Laboratory Tests 05/30/20 03:05 05/31/20 02:15 Assessment/Plan Assessment/Plan COVID + /influena A with acute respiratory failure and ARDS Pa02/Fi02 - now improved to 165 -PEEP to 5 -Will do weaning trial -wean vent to extubation today. -Pt has had copious amounts of sputum. -Hold sedation. -Lasix 40mg daily -S/p tamiflu and 2 [place] [facility] [place] sed[place] vacations -Increase Lasix to Q12 -Decrease Peep to 10. -s/p Remdesivir -Daily CMPs -Decrease to 10mg - TF with pulmicare at 15cc/hr - Trophic feeds. -Continue while proning. -s/p Convalescent plasma x 2 at [facility] [place]proning at shift changes secondary to BMI -BiPAP PRN MRSA pneumonia -Continue vanco and D/C Merrem Pancytopenia -Monitor Obesity with probable DENNIS hx of brain surgery and seizures -Home seizure meds restarted -Seizure precautions -PRN Ativan Hypokalemia -Replace and recheck Chronic pancytopenia -- Follows with hematology GI and DVT PPX MARY JONES DO May 31, 2020 05:28
[2020-05-31] MEDS: inSUlin ASPART (NovoLOG) 1 UNIT/0.01 ML (CHARGE PER UNIT) SQ SCH ×4 (06:16→23:21)
[2020-05-31] MEDS: POTASSIUM CL 10MEQ/50ML IVPB 50 ML IV SCH ×3 (06:17→14:44)
[2020-05-31] MEDS: KCL 20 MEQ TAB (K-DUR) PO SCH (06:17)
[2020-05-31] MEDS: MAGNESIUM 1 GM/100 ML IVPB 100 ML IV SCH ×3 (06:17→07:17)
--- NOTE | 2020-05-31 08:37 | Diagnostic Imaging Report ---
INDICATION: Respiratory distress. COMPARISON: 05/30/2020. FINDINGS: The ET tube tip is in the lower thoracic trachea, stable. The OG catheter is in the stomach, stable. Enlargement of the heart is unchanged. Bilateral coarse interstitial infiltrates and pulmonary opacities show a mild interval improvement, particularly in the right lung. No adverse development. No effusion. No pneumothorax. IMPRESSION: Improvements in bilateral infiltrates with no adverse development. Dictated by: Dictated on workstation # [id number]
[2020-05-31] MEDS: FLUCONAZOLE 200 MG/100 ML 50 ML, EMPTY IV BAG (PVC) 1 EA IV SCH ×2 (08:56)
[2020-05-31] MEDS: PANTOPRAZOLE 40 MG (PROTONIX) VIAL IV SCH (08:56)
[2020-05-31] MEDS: LEVETIRACETAM INJECTION 1,500 MG in NS (IVPB) 100 ML IV SCH ×2 (08:56→19:47)
[2020-05-31] MEDS: VENLAFAXINE 50 MG (EFFEXOR) TABLET PO SCH ×2 (08:57→19:23)
[2020-05-31] MEDS: NS IV SCH ×6 (08:57→19:48)
[2020-05-31] MEDS: FUROSEMIDE 40 MG/4 ML INJ (LASIX) IVP SCH ×2 (08:57→14:37)
[2020-05-31] MEDS: PHENYTOIN IV SCH ×6 (08:57→19:48)
[2020-05-31] MEDS: ARTIFICIAL TEARS OINT (LACRI-LUBE) 3.5 GM TUBE OU SCH ×2 (08:57→19:23)
[2020-05-31] MEDS: meTOprolol TARTRATE 25 MG (LOPRESSOR) TABLET PO SCH ×2 (08:57→19:23)
[2020-05-31] MEDS: MICRON FILTER IV SCH ×6 (08:57→19:48)
[2020-05-31] MEDS: MICONAZOLE 2% POWDER (DESENEX AF) 90 GM TOP SCH ×2 (08:58→19:52)
[2020-05-31] MEDS: METOCLOPRAMIDE INJ 10 MG/2 ML (REGLAN) IVP SCH (09:21)
--- NOTE | 2020-05-31 10:03 | NUR ---
ICU 2 AWAKE AND ALERT AND FOLLOWING COMMANDS. PT WILL SQUEEZE THIS RN'S FINGERS WITH BILATERAL HANDS, LOOK AT THIS RN, TRACK THIS RN'S MOVEMENTS, AND WIGGLE HER TOES. RT NOTIFIED FOR VENT SETTING CHANGES.
[2020-05-31 10:47] LABS: ABG BASE EXCESS 5.9 MMOL/L (-2.5-2.5); ABG OXYGEN SATURATION 96 % (94-100); ABG PCO2 49 MMHG (35-45); ABG PH 7.41 (7.37-7.43); ABG PO2 82 MMHG (79-93); ABG TCO2 31.9 MMOL/L (21.0-31.0)
[2020-05-31 10:49] LABS: ALLENS TEST YES-POS; INSPIRED O2 40%; PATIENT TEMP 37.4; VENTILATOR YES
--- NOTE | 2020-05-31 11:08 | NUR ---
PT EXTUBATED BY RT KRISTOPHER WITH CIARAN RN AT BEDSIDE. PT PLACED ON BIPAP 25/12 100% SATURATING 95%. PT IN NO APPARENT DISTRESS AT THIS TIME. Addendum: 05/31/20 at 1130 by KIZZY GAITAN RN AMENDMENT TO NOTE ABOVE: RESTRAINTS REMOVED ON THIS DAY AT 1108.
--- NOTE | 2020-05-31 14:43 | NUR ---
2100 DOSE OF LASIX 40MG IV GIVEN EARLY PER DR. JONES'S ORDER. MORNING DOSE OF LASIX 40MG IV NON-ADMINISTERED DUE TO HYPOTENSION. CURRENT BP 122/48.
--- NOTE | 2020-05-31 15:13 | Occupational Therapy Eval ---
OT Evaluation-General/PLF Medical Diagnosis Admission Date May 16, 2020 at 11:36 Medical Diagnosis: COVID+, respiratory distress Onset Date: May 12, 2020 Therapy Diagnosis Therapy Diagnosis: decreased ADL, weakness, Height/Weight Weight (Pounds): 373 Weight (Ounces): 6.0 Precautions Precautions/Isolations: Airborne Isolation, Aspiration, Fall Prevention, Pressure Ulcer Referral Physician: Roxane Referral Reason: Evaluation/Treatment Medical History Additional Medical History brain surgery, pneumonia, sleep apnea, concussion, seizure disorder, endometriosis, irritable bowel, DDD, arthritis, back injury, chronic back pain, fractures, DM, PTSD, suicide attempts, depression, eczema, COPD Current History Pt tested positive for COVID-19 05/12, on 05/16 pt transferred to [facility] from OSH for escalation of care, 05/17 intubated, 05/31 extubated. Social History Current Living Status: Other Family (15 y.o. granddaughter) ADL-Prior Level of Function SCALE: Activities may be completed with or without assistive devices. 1-Pdtespnpfw-qcxkzus completes the activity by him/herself with no assistance from a helper. 5-Set-up or Clean-up Assistance-helper sets up or cleans up; patient completes activity. [place] assists only prior to or following the activity. 4-Supervision or Touching Assistance-helper provides verbal cues and/or touching/steadying and/or contact guard assistance as patient completes activity. Assistance may be provided throughout the activity or intermittently. 3-Partial/Moderate Assistance-helper does LESS THAN HALF the effort. [place] lifts, holds or supports trunk or limbs, but provides less than half the effort. 2-Substantial/Maximal Assistance-helper does MORE THAN HALF the effort. [place] lifts or holds trunk or limbs and provides more than half the effort. 5-Cgentyuyw-upefbp does ALL the effort. Patient does none of the effort to complete the activity. Or, the assistance of 2 or more helpers is required for the patient to complete the activity. If activity was not attempted, code reason: 7-Patient Refused. 9-Not Applicable-not attempted and the patient did not perform the activity before the current illness, exacerbation or injury. 10-Not Attempted due to Environmental Limitations-(lack of equipment, weather restraints, etc.). 88-Not Attempted due to Medical Conditions or Safety Concerns. ADL PLOF Comments Pt unable to provide information about PLOF or home set up. Based off of chart review and social workers note, pt has been disabled for several years and has 30 hours weekly in home care. Pt also lives with 15 y.o granddaughter. Self Care: Needed Some Help Functional Cognition: Unknown OT Current Status Subjective Pt laying in bed, difficulty speaking due to extubation this AM. Pt indicates she has pain but unable to state where or verbalize pain rating. During tx, pt asked if she was , OT educated pt she was in the hospital. Mental Status/Objective Patient Orientation: Person, Confused, Non-Verbal/Aphasic Attachments: Carpenter Catheter, IV, Oxygen Current Upper Extremity ROM decreased BUEs, pt able to flex shoulders to approx 90 degrees with AAROM. Pt unable to get hand to mouth when she tried to wipe her lips. Upper Extremity Coordination decreased due to decreased ROM Upper Extremity Strength decreased ADL-Treatment Lower Body Dressing (QC): 1 (based on clinical judgement pt would be dependent with task.) On/Off Footwear (QC): 1 (based on clinical judgement pt would require total assistance donning/doffing footwear) Other Treatments Pt laying in bed, unable to provide information about PLOF and home set up due to recent extubation. Pt asked therapist if she was , OT educated pt on where she is. Pt had saliva come out of her mouth requiring total assist to wipe from face. Pt later attempted to wipe her mouth with a cloth but was unable to reach her mouth with her hand. OT assisted pt with task. Max A x2 in an attempt to get pt to sit EOB, but 2 people could only get pt to partially sit, pt then assisted to laying back down. In order to increase BUE strength and functional endurance, pt completed x5 reps each of the following BUEs, AAROM shoulder flexion to approx 90 degrees, AROM finger flexion/extension, AROM elbow flexion/extension. Post OT Tx, pt laying in bed, call light in reach and all needs met. Education OT Patient Education: Correct positioning, Energy conservation, Exercise program, Modified ADL techniques, Progress toward Goal/Update tx plan, Purpose of tx/functional activities, Rehab process Teaching Recipient: Patient Teaching Methods: Discussion Response to Teaching: Verbalize Understanding OT Decontaminator Goals Decontaminator Goals Time Frame: Jun 16, 2020 Eating (QC): 5 Oral Hygiene (QC): 5 Toileting Hygiene (QC): 2 Shower/Bathe Self (QC): 1 Upper Body Dressing (QC): 2 Lower Body Dressing (QC): 1 On/Off Footwear (QC): 1 Additional Goals: 1-Demonstrate ADL Tasks, 3-ImproveStrength/Lisa 1=Demonstrate adherence to instructed precautions during ADL tasks. 2=Patient will verbalize/demonstrate understanding of assistive devices/modifications for ADL. 3=Patient will improve strength/tolerance for activity to enable patient to perform ADL's. OT Education/Plan Problem List/Assessment Assessment: Decreased Activ Tolerance, Decreased UE Strength, Dependent Transfers, Impaired Bed Mobility, Impaired I ADL's, Impaired Self-Care Skills, Restricted Funct UE ROM Discharge Recommendations Plan/Recommendations: Continue POC Therapy Discharge Recommendati: Other, See Comments (NH) Treatment Plan/Plan of Care Patient would benefit from OT for education, treatment and training to promote independence in ADL's, mobility, safety and/or upper extremity function for ADL's. Plan of Care: ADL Retraining, Functional Mobility, UE Funct Exercise/Act Treatment Duration: Jun 16, 2020 Frequency: 5 times per week Estimated Hrs Per Day: .25 hour per day Rehab Potential: Guarded Time/GCodes Start Time: 14:38 Stop Time: 13:55 Total Time Billed (hr/min): 17 Billed Treatment Time 1, DEN GOINS OT May 31, 2020 15:13
--- NOTE | 2020-05-31 15:17 | Physical Therapy Evaluation ---
PT Evaluation-General Medical Diagnosis Admission Date May 16, 2020 at 11:36 Medical Diagnosis: covid + and resp distress Onset Date: May 16, 2020 Therapy Diagnosis Therapy Diagnosis: impaired mobility, strength, endurance Height/Weight Weight (Pounds): 373 Weight (Ounces): 6.0 Precautions Precautions/Isolations: Airborne Isolation, Aspiration, Fall Prevention, Pressure Ulcer Referral Physician: Roxane Reason for Referral: Evaluation/Treatment Medical History Additional Medical History Past Medical History brain surgery Respiratory: Pneumonia, Sleep Apnea (not confirmed) Cardiac: High Cholesterol, Hypertension Neurological: Concussion, Seizure Disorder Reproductive: Yes (4 PREGANCIES; 2 BIRTHS) Sexually Transmitted Disease: No HIV/AIDS: No Female Reproductive Disorders: Endometriosis Genitourinary: Kidney Stones Gastrointestinal: Irritable Bowel Musculoskeletal: Degenerate Disk Disease, Arthritis, Back Injury, Chronic Back Pain, Fractures Endocrine: Diabetes, Non-Insulin dep Psychosocial: PTSD, Suicide Attempts, Depression Skin/Integumentary: Eczema Reviewed History: Yes Social History unknown, patient has trouble speaking due to being intubated Prior Prior Level of Function SCALE: Activities may be completed with or without assistive devices. 4-Hqnmuthozw-eewlurc completes the activity by him/herself with no assistance from a helper. 5-Set-up or Clean-up Assistance-helper sets up or cleans up; patient completes activity. [place] assists only prior to or following the activity. 4-Supervision or Touching Assistance-helper provides verbal cues and/or touching/steadying and/or contact guard assistance as patient completes activity. Assistance may be provided throughout the activity or intermittently. 3-Partial/Moderate Assistance-helper does LESS THAN HALF the effort. [place] lifts, holds or supports trunk or limbs, but provides less than half the effort. 2-Substantial/Maximal Assistance-helper does MORE THAN HALF the effort. [place] lifts or holds trunk or limbs and provides more than half the effort. 8-Lqignznbk-kkyytc does ALL the effort. Patient does none of the effort to complete the activity. Or, the assistance of 2 or more helpers is required for the patient to complete the activity. If activity was not attempted, code reason: 7-Patient Refused. 9-Not Applicable-not attempted and the patient did not perform the activity befo re the current illness, exacerbation or injury. 10-Not Attempted due to Environmental Limitations-(lack of equipment, weather re straints, etc.). 88-Not Attempted due to Medical Conditions or Safety Concerns. unknown other than she lives with her daughter PT Evaluation-Current Subjective Patient in bed pre tx, agrees to PT but seems confused, states she has pain but seems unable to say where it is. Pt/Family Goals none stated Objective Patient Orientation: Unable to Assess Attachments: Oxygen, Carpenter Catheter, IV ROM/Strength ROM Lower Extremities limited generally, patient has severe ankle contractures bilaterally, worse on the right side. Strength Lower Extremities 2+/5 gross BLE Transfers Roll Left to Right (QC): 1 Sit to Lying (QC): 1 Lying to Sitting/Side of Bed(Q: 1 Attempted to get patient sitting on the side of the bed but 2 people could only get her partially sitting, the patient may have been resisting but it is hard to tell due to her great weight. She was layed back down in bed. Treatment BLE AROM, AP, HS, x20 Assessment/Needs Patient has impaired mobility, strength, endurance. Patient has severe ankle contractures and is not going to be able to stand even if she was stronger. Patient will be a maría lift transfer. Rehab Potential: Poor PT Skilled Nursing Goals Senior Sql Developer Goals PT Senior Sql Developer Goals Time Frame: Jun 07, 2020 Roll Left & Right (QC): 3 Sit to Lying (QC): 2 Lying-Sitting on Side/Bed(QC): 2 Chair/May-ca-Fqugp Xfer(QC): 1 PT Plan Problem List Problem List: Activity Tolerance, Functional Strength, Safety, Balance, Gait, Transfer, Bed Mobility, ROM Treatment/Plan Treatment Plan: Continue Plan of Care Treatment Plan: Bed Mobility, Education, Functional Activity Lisa, Functional Strength, Gait, Safety, Therapeutic Exercise, Transfers Treatment Duration: Jun 07, 2020 Frequency: 6 times per week Estimated Hrs Per Day: .25 hour per day Patient and/or Family Agrees t: Yes Safety Risks/Education Patient Education: Correct Positioning, Safety Issues Teaching Recipient: Patient Teaching Methods: Demonstration, Discussion Response to Teaching: Reinforcement Needed Discharge Recommendations Plan Patient will perform bed mobility and transfer training, balance and endurance training, functional strengthening, and education, to improve functional mobility and independence at home. Therapy Discharge Recommendati: Other, See Comments (NH) Time/GCodes Time In: 1438 Time Out: 1455 Total Billed Treatment Time: 17 Total Billed Treatment 1 visit EVM 17' CHIQUI FAULKNER PT May 31, 2020 15:16
[2020-05-31] MEDS ORDERED: TROUGH ORDER-PHARMACY XX ONE (17:00)
[2020-05-31] MEDS ORDERED: morphine INJ 4 MG/ML 1 ML (VIAL/SYRINGE) ONE (21:22)
[2020-05-31] MEDS: morphine INJ 4 MG/ML 1 ML (VIAL/SYRINGE) IVP PRN (21:26)
[2020-06-01] VITALS (12 sets, daily range): BP systolic 106–147; BP diastolic 38–78
[2020-06-01] MEDS: morphine INJ 4 MG/ML 1 ML (VIAL/SYRINGE) IVP PRN ×3 (00:03→17:26)
[2020-06-01 02:13] LABS: BASOPHILS % (AUTO) 1 % (0-10); EOSINOPHILS # (AUTO) 0.1 10^3/uL (0.0-0.3); EOSINOPHILS % (AUTO) 2 % (0-10); HEMATOCRIT 32 % (35-52); HEMOGLOBIN 10.2 g/dL (11.5-16.0); LYMPHOCYTES # (AUTO) 1.1 10^3/uL (1.0-4.0); LYMPHOCYTES % (AUTO) 29 % (12-44); MEAN CORPUSCULAR HEMOGLOBIN 31 pg (25-34); MEAN CORPUSCULAR HGB CONC 32 g/dL (32-36); MEAN CORPUSCULAR VOLUME 97 fL (80-99); MEAN PLATELET VOLUME 10.6 fL (9.0-12.2); MONOCYTES # (AUTO) 0.3 10^3/uL (0.0-1.0); MONOCYTES % (AUTO) 7 % (0-12); NEUTROPHILS # (AUTO) 2.2 10^3/uL (1.8-7.8); NEUTROPHILS % (AUTO) 61 % (42-75); PLATELET COUNT 85 10^3/uL (130-400); WHITE BLOOD COUNT 3.7 10^3/uL (4.3-11.0)
[2020-06-01 02:21] LABS: CHLORIDE 102 MMOL/L (98-107); SODIUM 141 MMOL/L (135-145)
[2020-06-01 02:23] LABS: GLUCOSE 93 MG/DL (70-105)
[2020-06-01] MEDS: RT-ALBUTEROL INHALER HFA (VENTOLIN HFA) 18 GM IH SCH ×5 (02:23→21:44)
[2020-06-01 02:24] LABS: CARBON DIOXIDE 28 MMOL/L (21-32)
[2020-06-01] MEDS: LACTATED RINGERS 1,000 ML IV SCH ×2 (02:24→11:05)
[2020-06-01] MEDS: KCL 20 MEQ TAB (K-DUR) PO SCH (02:25)
[2020-06-01 02:26] LABS: PHOSPHORUS 2.1 MG/DL (2.3-4.7)
[2020-06-01 02:27] LABS: CREATININE SERUM 0.41 MG/DL (0.60-1.30); GFR ESTIMATED > 60
[2020-06-01 02:28] LABS: BUN/CREATININE RATIO 20
[2020-06-01 02:29] LABS: MAGNESIUM 1.5 MG/DL (1.6-2.4)
[2020-06-01] MEDS: POTASSIUM CL 10MEQ/50ML IVPB 50 ML IV SCH ×5 (03:30→08:22)
[2020-06-01] MEDS: MAGNESIUM 1 GM/100 ML IVPB 100 ML IV SCH ×2 (03:30→03:31)
--- NOTE | 2020-06-01 05:32 | Pulmonary Progress Note ---
Subjective Time Seen by a Provider: 05:28 Subjective/Events-last exam Pt is extubated and doing better. Sepsis Event Evaluation Height, Weight, BMI Height: '" Weight: 373lbs. 6.0oz. 169.246424ya; 49.98 BMI Method: Exam Exam Vital Signs Date Time Temp Pulse Resp B/P (MAP) Pulse Ox O2 Delivery O2 Flow Rate FiO2 06/01/20 04:01 89 19 113/40 (64) 96 Vapotherm 15.00 30.00 06/01/20 03:40 36.6 06/01/20 03:00 86 15 123/40 (67) 95 Vapotherm 15.00 30.00 06/01/20 02:23 96 Vapotherm 15.00 30 06/01/20 02:00 82 20 127/40 (69) 96 Vapotherm 15.00 30.00 06/01/20 01:00 82 06/01/20 01:00 79 21 120/40 (66) 95 Vapotherm 15.00 30.00 06/01/20 00:00 75 13 122/38 (66) 95 Vapotherm 15.00 30.00 05/31/20 23:20 36.8 Vapotherm 15.00 30.00 05/31/20 23:00 77 23 110/41 (64) 98 Vapotherm 20.00 35.00 05/31/20 22:00 78 28 134/46 (75) 96 Vapotherm 20.00 35.00 05/31/20 21:29 Vapotherm 20.00 35.00 05/31/20 21:00 89 14 125/50 (75) 97 Vapotherm 20.00 40.00 05/31/20 20:50 Vapotherm 20.00 40 05/31/20 20:00 69 15 110/42 (64) 96 Vapotherm 20.00 40.00 05/31/20 19:38 36.1 Vapotherm 20.00 40.00 05/31/20 19:00 74 10 136/47 (76) 96 Vapotherm 25.00 50.00 05/31/20 19:00 85 05/31/20 18:13 97 Vapotherm 45.00 45 05/31/20 18:00 69 21 116/48 (70) 98 Vapotherm 25.00 50.00 05/31/20 17:27 Vapotherm 25.00 50.00 05/31/20 17:22 Vapotherm 25.00 70.00 05/31/20 17:20 37.0 05/31/20 17:00 67 41 106/58 (74) 87 Vapotherm 40.00 80.00 05/31/20 16:48 Vapotherm 25.00 50.00 05/31/20 16:00 93 19 129/62 (84) 98 Vapotherm 40.00 80.00 05/31/20 15:00 66 7 118/52 (74) 97 Vapotherm 40.00 80.00 05/31/20 14:00 66 50 128/52 (77) 98 Vapotherm 40.00 80.00 05/31/20 13:42 98 Vapotherm 40.00 80 05/31/20 13:38 Vapotherm 40.00 80.00 05/31/20 13:00 64 19 106/46 (66) 98 Vapotherm 40.00 90.00 05/31/20 12:52 65 05/31/20 12:44 Vapotherm 40.00 90.00 05/31/20 12:38 Vapotherm 40.00 100.00 05/31/20 12:00 62 32 94/34 (54) 94 NIV Bilevel 50.00 05/31/20 12:00 37.3 05/31/20 11:14 93 NIV Bilevel 50.00 05/31/20 11:00 64 34 103/45 (64) 87 Mechanical Ventilator 40.00 05/31/20 10:00 61 14 130/52 (78) 92 Mechanical Ventilator 40.00 05/31/20 09:28 Mechanical Ventilator 40.00 05/31/20 09:17 37.2 05/31/20 09:00 61 92/42 (59) 91 Mechanical Ventilator 30.00 05/31/20 09:00 Mechanical Ventilator 45 05/31/20 08:45 59 21 92 30 05/31/20 08:00 61 18 98/44 (62) 91 Mechanical Ventilator 30.00 05/31/20 07:26 62 110/49 05/31/20 07:00 64 17 113/53 (73) 93 Mechanical Ventilator 30.00 05/31/20 06:46 65 05/31/20 06:17 63 109/51 10/19/20 06:16 37.9 63 17 109/51 97 Mechanical Ventilator 40.00 05/31/20 06:00 63 93/44 (60) Mechanical Ventilator 30.00 I & O 06/01/20 06:59 Intake Total 469 ml Output Total 2345 ml Balance -1876 ml Height & Weight Height: '" Weight: 373lbs. 6.0oz. 169.029234id; 49.98 BMI Method: General Appearance: Obese, Other (intubated and sedated) HEENT: Other (ETT, OGT) Neck: Full Range of Motion, Normal Inspection, Non Tender, Supple, Carotid Bruit Respiratory: No Crackles; Rhonci; No Wheezing; Other (on vent) Cardiovascular: Regular Rate, Rhythm, No Murmur Capillary Refill: Less Than 3 Seconds Extremity: Normal Capillary Refill, Pedal Edema Neurologic/Psychiatric: Other (sedated, appears comfortable) Skin: Tattoos/Piercings Lymphatic: No Adenopathy Results Lab Laboratory Tests 05/31/20 02:15 06/01/20 02:01 Assessment/Plan Assessment/Plan COVID + /influena A with acute respiratory failure and ARDS Pa02/Fi02 - now improved to 165 -Pt is doing well s/p extubation -She is currently on 30% Vapotherm -Trial pt to NC -Pt needs swallow eval -Check echo once pt is out of isolation -Lasix 40mg daily -S/p tamiflu and 2 units of [place]val[place] [facility] [place]Lasix to Q12 - TF with pulmicare at 15cc/hr - Trophic feeds. -Continue while proning. -s/p Convalescent plasma x 2 at [facility] [place]BiPAP PRN MRSA pneumonia -Continue vanco and D/C Merrem Pancytopenia -Monitor Improving thrombocytopenia -Monitor Obesity with probable DENNIS -Out pt testing is needed. hx of brain surgery and seizures -Home seizure meds restarted -Seizure precautions -PRN Ativan Hypokalemia,hypophos, hypomag -Replace and recheck Chronic pancytopenia -- Follows with hematology GI and DVT PPX MARY JONES DO Jun 01, 2020 05:32
[2020-06-01] MEDS: inSUlin ASPART (NovoLOG) 1 UNIT/0.01 ML (CHARGE PER UNIT) SQ SCH ×4 (06:04→20:38)
[2020-06-01] MEDS ORDERED: POTASSIUM PHOSPHATE INJ 30 MM in NS (IVPB) 250 ML IV ONE (07:30)
--- NOTE | 2020-06-01 07:54 | Diagnostic Imaging Report ---
INDICATION: COVID infection Since examination of one day earlier, there has been discontinuation of nasogastric tube and endotracheal tube. Predominantly peripheral infiltrates in both lungs have not significantly changed. There is no evidence of pneumothorax. IMPRESSION: Stable overall appearance of bilateral infiltrate without new abnormality detected. Dictated by: Dictated on workstation # [id number]
[2020-06-01] MEDS: FLUCONAZOLE 200 MG/100 ML 50 ML, EMPTY IV BAG (PVC) 1 EA IV SCH ×2 (08:24)
[2020-06-01] MEDS: NS IV SCH ×6 (08:25→20:35)
[2020-06-01] MEDS: MICRON FILTER IV SCH ×6 (08:25→20:35)
[2020-06-01] MEDS: LEVETIRACETAM INJECTION 1,500 MG in NS (IVPB) 100 ML IV SCH ×2 (08:25→20:32)
[2020-06-01] MEDS: PHENYTOIN IV SCH ×6 (08:25→20:35)
[2020-06-01] MEDS: PANTOPRAZOLE 40 MG (PROTONIX) VIAL IV SCH (08:26)
[2020-06-01] MEDS: METOCLOPRAMIDE INJ 10 MG/2 ML (REGLAN) IVP SCH (08:27)
[2020-06-01] MEDS: VENLAFAXINE 50 MG (EFFEXOR) TABLET PO SCH ×2 (08:27→20:32)
[2020-06-01] MEDS: meTOprolol TARTRATE 25 MG (LOPRESSOR) TABLET PO SCH ×2 (08:27→20:32)
[2020-06-01] MEDS: ARTIFICIAL TEARS OINT (LACRI-LUBE) 3.5 GM TUBE OU SCH ×2 (08:27→20:34)
--- NOTE | 2020-06-01 09:22 | ST Dysphagia Evaluation ---
Speech Evaluation-General Medical Diagnosis COVID+, respiratory distress Onset Date: May 12, 2020 Therapy Diagnosis Therapy Diagnosis: Oropharyngeal Dysphagia Precautions Precautions: Aspiration Referral Referring Physician: Dr. Betts Medical History Reviewed History: Yes Social History Current Living Status: Other Family (15 y.o. granddaughter) Speech PLF/Current-Dysphagia Prior Level of Function Patient lived at her own home with a 15 y/o granddaughter. She was independent for most of her daily needs prior. Subjective Patient was pleasant and cooperative with the Bedside Dysphagia Evaluation. Oral Motor Skills Dentition: Edentalous Ability to Follow Directions: Good Oral Expression Ability: Moderate Impairment Voice Voice Phonatory-Based Quality: Weak Voice Pitch: Normal Voice Loudness: Moderately Soft/Quiet Face Facial Symmetry: Symmetrical Oral-Facial Assessment Oral-Facial Dentition: Normal Labial Seal Description: Weak Lingual Protrusion: Abnormal Lingual ROM: Abnormal Lingual Strength: Abnormal Due to weakness Pharynx Velopharyngeal Move.: Normal Productive Cough: Yes Patient cough/clear first presentation of thin liquids of 1/2 tsp Dysphagia Evaluation Consistencies Presented: Thin Liquid, Pureed Oral phase appears grossly within normal range of function. Lingual function is weak at this time. Pharyngeal phase is appropriate for puree. Patient cough/clear with thin liquids. No difficulty noted with nectar consistency. Funct. Velo/Pharyngeal Symptom: Cough After Swallow Dietary Recommendations: Pureed Liquid Recommendations: Godfrey Consistancy Swallowing Precautions: Alternate Liquids/Solids, Double Swallow, Decreased Bolus 1/2 Tsp, Liquids from Spoon, No Straw, Small Bites and Sips, Sitting Upright 90 Degrees, Sitting 90 Degrees 30 Post Intake Dysphagia Evaluation Summary Patient is a COVID positive patient who was intubated in the ER on day #5. She was extubated this date and Bedside Dysphagia Evaluation orders were received from Dr. Betts. The evaluation was completed with presentations of thin via 1/2 tsp and small sips from a straw. Patient noted to cough/clear with first presentation via spoon. Patient cleared with sips via straw, however she did cough with 2 presentations. Godfrey consistency liquids were noted to be safe without coughing. Presentation of puree was tolerated without difficulty. The patient is recommended for nectar consistency liquids and Dysphagia I diet level at this time. Patient is expected to be able to upgrade in diet as her strength returns. ST will follow to upgrade as appropriate. Barriers to Learning Patient's recent severe illness. Speech Short Term Goals Short Term Goals Short Term Goals 1) Patient will tolerate least restrictive diet level without s/s of aspiration at 90%. 2) Patient/caregiver will utilize compensatory strategies as trained at 90% or greater with minimal cues. Speech Snf Goals Snf Goals Patient will maintain adequate nutrition/hydration via safe effective swallow function. Speech-Plan Patient/Family Goals Patient/Family Goals: Patient plans on returning to her home upon hospital discharge. Treatment Plan Speech Therapy Treatment Plan: Continue Plan of Care Treatment Duration: Jun 11, 2020 Frequency: 4 times per week Estimated Hrs Per Day: .25 hour per day Rehab Potential: Guarded Barriers to Learning: Patient's severe illness Pt/Family Agrees to Plan: Yes Safety Risks/Education Teaching Methods: Discussion Response to Teaching: Verbalize Understanding, Reinforcement Needed Education Topics Provided: Safety of oral intake, diet level Time Speech Therapy Time In: 09:10 Speech Therapy Time Out: 09:30 Total Billed Time: 20 Billed Treatment Time 1, SAVANNAH, TENISHA Cruz Jun 01, 2020 09:22
--- NOTE | 2020-06-01 09:36 | NUR ---
PATIENT TRANSPORTED VIA HOSPITAL BED WITH COVID PRECAUTIONS TO ROOM 429 AFTER CALLING REPORT TO 4TH FLOOR. PATIENT TOLERATED WELL WITH NO COMPLAINTS. ALL PERSONAL BELONGINGS WITH PATIENT.
[2020-06-01] MEDS: MICONAZOLE 2% POWDER (DESENEX AF) 90 GM TOP SCH ×2 (10:06→20:35)
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
[2020-06-01] MEDS: HYDROcodone/APAP 5 MG/325 MG (LORTAB) TAB PO PRN (11:04)
[2020-06-01] MEDS: VANCOMYCIN 1500 MG/NS 500 ML IVPB IV SCH ×2 (11:07)
[2020-06-01] MEDS: ENOXAPARIN 60 MG/0.6 ML (LOVENOX) SYR SC SCH (11:16)
--- NOTE | 2020-06-01 11:35 | Physical Therapy Daily Note ---
PT Daily Note-Current Subjective Patient is in bed and reports her right ankle and left knee are fused from prior injury and she does not walk. She does report she was able to stand. Pain Numeric Pain Scale: 8 Location: Lower Location Body Site: Abdomen Mental Status Patient Orientation: Person, Situation Attachments: Oxygen, Carpenter Catheter Transfers SCALE: Activities may be completed with or without assistive devices. 4-Xoyprgnzst-lmabklj completes the activity by him/herself with no assistance from a helper. 5-Set-up or Clean-up Assistance-helper sets up or cleans up; patient completes activity. [place] assists only prior to or following the activity. 4-Supervision or Touching Assistance-helper provides verbal cues and/or touching/steadying and/or contact guard assistance as patient completes activity. Assistance may be provided throughout the activity or intermittently. 3-Partial/Moderate Assistance-helper does LESS THAN HALF the effort. [place] lifts, holds or supports trunk or limbs, but provides less than half the effort. 2-Substantial/Maximal Assistance-helper does MORE THAN HALF the effort. [place] lifts or holds trunk or limbs and provides more than half the effort. 6-Ifcchosts-eqovkr does ALL the effort. Patient does none of the effort to complete the activity. Or, the assistance of 2 or more helpers is required for the patient to complete the activity. If activity was not attempted, code reason: 7-Patient Refused. 9-Not Applicable-not attempted and the patient did not perform the activity before the current illness, exacerbation or injury. 10-Not Attempted due to Environmental Limitations-(lack of equipment, weather restraints, etc.). 88-Not Attempted due to Medical Conditions or Safety Concerns. Roll Left & Right (QC): 1 (x 3) Sit to Lying (QC): 1 (x 3) Lying to Sitting/Side of Bed(Q: 1 (x 2) patient sat EOB x 15 min with PT dependent assist to maintain while nursing bathed patient. Patient requires Trendelenburg position when returned to bed to assist with repositioning up in bed. Assessment Due to right ankle fusion in plantarflexion and left knee fusion, this PT questions patient's PLOF with ability to stand. PT to address functional strength and mobility. PT Shelter Goals Pole Lift Operator Goals PT Pole Lift Operator Goals Time Frame: Jun 07, 2020 Roll Left & Right (QC): 3 Sit to Lying (QC): 2 Lying-Sitting on Side/Bed(QC): 2 Chair/Nle-gx-Dynir Xfer(QC): 1 PT Plan Treatment/Plan Treatment Plan: Continue Plan of Care Treatment Plan: Bed Mobility, Education, Functional Activity Lisa, Functional Strength, Gait, Safety, Therapeutic Exercise, Transfers Treatment Duration: Jun 07, 2020 Frequency: 6 times per week Estimated Hrs Per Day: .25 hour per day Patient and/or Family Agrees t: Yes Time/GCodes Time In: 1030 Time Out: 1053 Total Billed Treatment Time: 23 Total Billed Treatment 1 visit FA x 2 23 min ABRAHAN SORENSON PT Jun 01, 2020 11:35
--- NOTE | 2020-06-01 14:21 | NUR ---
Pt expressing need to contact her son Dario who is apparently overseas. She was apparently wanting his notified but unable to find her phone number in chart. Did contact pt's daughter Flakita and she stated she will message son's ex- concerning pt's request to contact son. Pt discussed her request with Katherine trevino Occupational Therapist who was concerned asking for assistance in granting pt request Will follow
--- NOTE | 2020-06-01 14:22 | Occupational Ther Daily Note ---
OT Current Status-Daily Note Subjective Pt. is able to mouth words, but has little voice. She indicates that she lives in [place], but does not know if she still does. No pain indicated. Appearance Pt. in bed. Pt. has just been bathed and positioned. Pt. alert. Mental Status/Objective Patient Orientation: Person Attachments: Oxygen ADL-Treatment Therapy Code Descriptions/Definitions Functional [place] Measure: 0=Not Assessed/NA 4=Minimal Assistance 1=Total Assistance 5=Supervision or Setup 2=Maximal Assistance 6=Modified [place] 3=Moderate Assistance 7=Complete IndependenceSCALE: Activities may be completed with or without assistive devices. 8-Exrejdkgsy-witmaab completes the activity by him/herself with no assistance from a helper. 5-Set-up or Clean-up Assistance-helper sets up or cleans up; patient completes activity. [place] assists only prior to or following the activity. 4-Supervision or Touching Assistance-helper provides verbal cues and/or touching/steadying and/or contact guard assistance as patient completes acti vity. Assistance may be provided throughout the activity or intermittently. 3-Partial/Moderate Assistance-helper does LESS THAN HALF the effort. [place] lifts, holds or supports trunk or limbs, but provides less than half the effort. 2-Substantial/Maximal Assistance-helper does MORE THAN HALF the effort. [place] lifts or holds trunk or limbs and provides more than half the effort. 2-Uqoyretev-fnpwir does ALL the effort. Patient does none of the effort to complete the activity. Or, the assistance of 2 or more helpers is required for the patient to complete the activity. If activity was not attempted, code reason: 7-Patient Refused. 9-Not Applicable-not attempted and the patient did not perform the activity before the current illness, exacerbation or injury. 10-Not Attempted due to Environmental Limitations-(lack of equipment, weather restraints, etc.). 88-Not Attempted due to Medical Conditions or Safety Concerns. Other Treatment Pt. in bed on back, with positioning pillows around her. Pt. is alert, and attempts to talk with OT. Pt. has limited vocal range, but does talk in loud whisper. OT engages pt. in bilateral UE exercises, to tolerated range. Noted pt. is very limited at shoulder level. OT attempts to have pt. apply lotion to bilateral hands. Pt. has difficult time bringing hands together. OT provides assistance to position arms. OT then completed gentle retrograde massage to bilateral hands and forearms. Pt. is educated and encouraged to move fingers/hands throughout day on her own, to decrease swelling, and increase strength. Pt. verbalizes understanding. OT encourages pt. to move bilateral feet/ankles in bed. Pt. attempts but is very limited. Pt. verbalizes that she wants OT to call her son oversees. With multiple questions, it was determined that he is in the , and his lives in [place]. She has a daughter listed in her chart, and so OT talked with social science professor regarding contacting family per pt's wishes. All needs met at end of treatment. Education OT Patient Education: Correct positioning, Exercise program, Progress toward Goal/Update tx plan, Purpose of tx/functional activities, Reviewed precautions, Rehab process Teaching Recipient: Patient Teaching Methods: Demonstration, Discussion Response to Teaching: Verbalize Understanding, Return Demonstration, Reinforcement Needed OT Mcc Goals Earth Science Technician Goals Time Frame: Jun 16, 2020 Eating (QC): 5 Oral Hygiene (QC): 5 Toileting Hygiene (QC): 2 Shower/Bathe Self (QC): 1 Upper Body Dressing (QC): 2 Lower Body Dressing (QC): 1 On/Off Footwear (QC): 1 Additional Goals: 1-Demonstrate ADL Tasks, 3-ImproveStrength/Lisa 1=Demonstrate adherence to instructed precautions during ADL tasks. 2=Patient will verbalize/demonstrate understanding of assistive devices/modifications for ADL. 3=Patient will improve strength/tolerance for activity to enable patient to perform ADL's. OT Education/Plan Problem List/Assessment Assessment: Decreased Activ Tolerance, Decreased UE Strength, Dependent Transfers, Impaired Bed Mobility, Impaired Funct Balance, Impaired I ADL's, Impaired Self-Care Skills, Restricted Funct UE ROM Discharge Recommendations Plan/Recommendations: Continue POC Therapy Discharge Recommendati: 24 Hour Supervision Treatment Plan/Plan of Care Treatment,Training & Education: Yes Patient would benefit from OT for education, treatment and training to promote independence in ADL's, mobility, safety and/or upper extremity function for AD L's. Plan of Care: ADL Retraining, Functional Mobility, UE Funct Exercise/Act Treatment Duration: Jun 16, 2020 Frequency: 5 times per week Estimated Hrs Per Day: .25 hour per day Agreement: Yes Rehab Potential: Guarded Time/GCodes Start Time: 10:55 Stop Time: 11:25 Total Time Billed (hr/min): 30 Billed Treatment Time 1, Ex x 15minutes, FA x 15minutes CHEN ROQUE OT Jun 01, 2020 14:22
[2020-06-01] MEDS ORDERED: TROUGH ORDER-PHARMACY XX NR (21:00)
[2020-06-02] VITALS (8 sets, daily range): BP systolic 120–148; BP diastolic 65–78
[2020-06-02] MEDS: VANCOMYCIN 1500 MG/NS 500 ML IVPB IV SCH ×2 (00:35)
[2020-06-02] MEDS: morphine INJ 4 MG/ML 1 ML (VIAL/SYRINGE) IVP PRN (00:38)
[2020-06-02] MEDS: ENOXAPARIN 60 MG/0.6 ML (LOVENOX) SYR SC SCH ×2 (01:04→12:53)
[2020-06-02] MEDS: HYDROcodone/APAP 5 MG/325 MG (LORTAB) TAB PO PRN ×2 (02:16→10:30)
[2020-06-02] MEDS: RT-ALBUTEROL INHALER HFA (VENTOLIN HFA) 18 GM IH SCH ×5 (02:36→23:02)
[2020-06-02 05:32] LABS: BASOPHILS % (AUTO) 0 % (0-10); EOSINOPHILS # (AUTO) 0.1 10^3/uL (0.0-0.3); EOSINOPHILS % (AUTO) 3 % (0-10); HEMATOCRIT 32 % (35-52); HEMOGLOBIN 10.1 g/dL (11.5-16.0); LYMPHOCYTES # (AUTO) 0.9 10^3/uL (1.0-4.0); LYMPHOCYTES % (AUTO) 26 % (12-44); MEAN CORPUSCULAR HEMOGLOBIN 31 pg (25-34); MEAN CORPUSCULAR HGB CONC 32 g/dL (32-36); MEAN CORPUSCULAR VOLUME 98 fL (80-99); MEAN PLATELET VOLUME 10.3 fL (9.0-12.2); MONOCYTES # (AUTO) 0.3 10^3/uL (0.0-1.0); MONOCYTES % (AUTO) 8 % (0-12); NEUTROPHILS # (AUTO) 2.1 10^3/uL (1.8-7.8); NEUTROPHILS % (AUTO) 62 % (42-75); PLATELET COUNT 82 10^3/uL (130-400); WHITE BLOOD COUNT 3.4 10^3/uL (4.3-11.0)
[2020-06-02 05:37] LABS: CHLORIDE 103 MMOL/L (98-107); POTASSIUM 3.1 MMOL/L (3.6-5.0); SODIUM 140 MMOL/L (135-145)
[2020-06-02 05:38] LABS: CALCIUM 8.1 MG/DL (8.5-10.1)
[2020-06-02 05:39] LABS: GLUCOSE 126 MG/DL (70-105)
[2020-06-02 05:40] LABS: CARBON DIOXIDE 28 MMOL/L (21-32)
[2020-06-02 05:43] LABS: CREATININE SERUM 0.44 MG/DL (0.60-1.30); GFR ESTIMATED > 60; PHOSPHORUS 2.5 MG/DL (2.3-4.7)
[2020-06-02 05:44] LABS: BUN/CREATININE RATIO 16
[2020-06-02 05:45] LABS: MAGNESIUM 1.5 MG/DL (1.6-2.4)
[2020-06-02] MEDS: inSUlin ASPART (NovoLOG) 1 UNIT/0.01 ML (CHARGE PER UNIT) SQ SCH ×4 (05:50→21:27)
[2020-06-02] MEDS ORDERED: KCL 20 MEQ TAB (K-DUR) PO ONE (06:26)
[2020-06-02] MEDS: KCL 20 MEQ TAB (K-DUR) PO SCH (06:51)
--- NOTE | 2020-06-02 07:00 | NUR ---
Notified Dr. Pandya that pt potassium is 3.1. Received orders for Potassium 20 MEQ PO daily. Will follow orders.
--- NOTE | 2020-06-02 07:48 | NUR ---
PTD VANCOMYCIN LABS: SCR 0.44 VANCO TROUGH 9.4 VANCOMYCIN D6 -MRSA IN SPUTUM PLAN: INCREASE DOSE UP TO 1,250MG IV Q8H, (CHANGED FROM 1,500MG IV Q8HR TO 1,500MG IV Q12H) WILL RECHECK A TROUGH LEVEL IN A FEW DAYS AND ADJUST IF NEEDED.
[2020-06-02] MEDS: PANTOPRAZOLE 40 MG (PROTONIX) VIAL IV SCH (08:50)
[2020-06-02] MEDS: VANCOMYCIN 1250 MG/NS 250 ML IVPB IV SCH ×4 (08:50→16:46)
[2020-06-02] MEDS: METOCLOPRAMIDE INJ 10 MG/2 ML (REGLAN) IVP SCH (08:53)
[2020-06-02] MEDS: LEVETIRACETAM INJECTION 1,500 MG in NS (IVPB) 100 ML IV SCH (08:55)
[2020-06-02] MEDS: MICONAZOLE 2% POWDER (DESENEX AF) 90 GM TOP SCH ×2 (09:03→21:27)
[2020-06-02] MEDS: meTOprolol TARTRATE 25 MG (LOPRESSOR) TABLET PO SCH ×2 (09:03→21:26)
[2020-06-02] MEDS: ARTIFICIAL TEARS OINT (LACRI-LUBE) 3.5 GM TUBE OU SCH ×2 (09:04→21:26)
[2020-06-02] MEDS: FLUCONAZOLE 200 MG/100 ML 50 ML, EMPTY IV BAG (PVC) 1 EA IV SCH ×2 (09:08)
[2020-06-02] MEDS: VENLAFAXINE 50 MG (EFFEXOR) TABLET PO SCH ×2 (09:19→21:28)
--- NOTE | 2020-06-02 10:05 | Progress Note - Hospitalist ---
Subjective HPI/CC On Admission Date Seen by Provider: Jun 02, 2020 Time Seen by Provider: 10:02 CC: Worsening COVID-19 condition requiring transfer to higher level from [facility] HPI: This is a 55yoWF clinic patient of [facility] who presents following a 5 day course at [facility] after she was admitted presumptive COVID on Sunday along with Flu A placed on Tamiflu until COVID swab confirmed so Decadron was started along with convalescent plasma but started to worsen with higher fevers requiring initiation of Vanc and Cefepime for elevated PCT at 0.22. Vapotherm was started yesterday afternoon and this am she once again had decreased O2 sats and appeared to be worsening prompting transfer to [facility] for Pulmonology and critical care services. Subjective/Events-last exam Pt reports doing ok. Very hoarse so did not speak much but denied any complaints or concerns. Objective Exam Vital Signs Vital Signs Date Time Temp Pulse Resp B/P (MAP) Pulse Ox O2 Delivery O2 Flow Rate FiO2 06/02/20 08:02 95 Nasal Cannula 2.00 06/02/20 08:00 36.8 89 20 125/68 (87) 06/01/20 21:44 2 Capillary Refill : Less Than 3 Seconds General Appearance: No Apparent Distress, Obese, Other (eschar on left cheek ) Respiratory: Lungs Clear, No Accessory Muscle Use, Other (on 2lpm) Cardiovascular: Regular Rate, Rhythm, No Murmur Gastrointestinal: Normal Bowel Sounds, Non Tender, Soft Neurologic/Psychiatric: Alert, Oriented x3 Results/Procedures Lab Laboratory Tests 06/02/20 04:35 Patient resulted labs reviewed. Assessment/Plan Assessment and Plan Assess & Plan/Chief Complaint COVID + /influena A with acute respiratory failure and ARDS MRSA pneumonia -Continue vanco -Pt is doing well s/p extubation on NC currently -Swallow eval done and need pureed diet with nectar thick liquids -Check echo once pt is out of isolation -S/p tamiflu and 2 units of convalescent plasma at [facility] -s/p Convalescent plasma x 2 at [facility] Pancytopenia -Chronic and follows with Dr Stone Obesity with probable DENNIS -Out pt testing is needed hx of brain surgery and seizures -Home seizure meds- will switch to oral today -Seizure precautions -PRN Ativan Hypokalemia,hypophos, hypomag -Replace and trend Critical illness myopathy - PT/OT - Will monitor for progression, may need SNF vs IRU GI and DVT PPX Critical Care Critically Ill Patient Diagnosis/Problems Diagnosis/Problems (1) Acute respiratory failure Status: Acute Qualifiers: Respiratory failure complication: hypoxia Qualified Codes: J96.01 - Acute respiratory failure with hypoxia (2) Seizure disorder Status: Chronic (3) COVID-19 Status: Acute (4) ARDS (adult respiratory distress syndrome) Clinical Quality Measures DVT/VTE Risk/Contraindication: Risk Factor Score Per Nursin RFS Level Per Nursing on Admit: 4+=Very High GREGG TOWNSEND MD Jun 02, 2020 10:05
[2020-06-02] MEDS: PHENYTOIN IV SCH ×3 (10:30)
[2020-06-02] MEDS: NS IV SCH ×3 (10:30)
[2020-06-02] MEDS: MICRON FILTER IV SCH ×3 (10:30)
--- NOTE | 2020-06-02 10:30 | NUR ---
200MG OF IV DILANTIN GIVEN. ORDERS WERE CHANGED TO PO AFTER AM MEDICATIONS WERE TO BE GIVEN IV. MEDICATION WAS GIVEN ONCE AVAILABLE FROM PHARMACY.
--- NOTE | 2020-06-02 10:46 | Physical Therapy Daily Note ---
PT Daily Note-Current Subjective Patient in bed pre tx, agrees reluctantly to PT, has no complaints of pain at rest but has pain in legs with assisted movement. Appearance Patient in bed post tx with nurse call, phone, tray, all needs met, legs on pillows with heel suspended Mental Status Patient Orientation: Person, Unable to Assess, [place] Attachments: Oxygen, Carpenter Catheter Transfers SCALE: Activities may be completed with or without assistive devices. 0-Evxlnaynrf-nbbtiqi completes the activity by him/herself with no assistance from a helper. 5-Set-up or Clean-up Assistance-helper sets up or cleans up; patient completes activity. [place] assists only prior to or following the activity. 4-Supervision or Touching Assistance-helper provides verbal cues and/or touching/steadying and/or contact guard assistance as patient completes activity. Assistance may be provided throughout the activity or intermittently. 3-Partial/Moderate Assistance-helper does LESS THAN HALF the effort. [place] lifts, holds or supports trunk or limbs, but provides less than half the effort. 2-Substantial/Maximal Assistance-helper does MORE THAN HALF the effort. [place] lifts or holds trunk or limbs and provides more than half the effort. 9-Ynxdcgzil-ibqohq does ALL the effort. Patient does none of the effort to complete the activity. Or, the assistance of 2 or more helpers is required for the patient to complete the activity. If activity was not attempted, code reason: 7-Patient Refused. 9-Not Applicable-not attempted and the patient did not perform the activity before the current illness, exacerbation or injury. 10-Not Attempted due to Environmental Limitations-(lack of equipment, weather restraints, etc.). 88-Not Attempted due to Medical Conditions or Safety Concerns. Roll Left & Right (QC): 1 Sit to Lying (QC): 1 Lying to Sitting/Side of Bed(Q: 1 Patient could assist a little with supine to sit but not enough to be considered max assist. 2 person dependent and patient needed max assist to maintain sitting balance while sitting on the edge of the bed. Patient was able to sit there for about 10 min. Exercises Seated Therapy Exercises: Ankle pumps, Long arc quads Seated Reps: 20 Treatments sitting, LE ROM Assessment Current Status: Poor Progress Patient is very weak and seems to have poor motivation PT Mcc Goals Mcc Goals PT Mcc Goals Time Frame: Jun 07, 2020 Roll Left & Right (QC): 3 Sit to Lying (QC): 2 Lying-Sitting on Side/Bed(QC): 2 Chair/Dzs-yt-Dswhm Xfer(QC): 1 PT Plan Problem List Problem List: Activity Tolerance, Functional Strength, Safety, Balance, Gait, Transfer, Bed Mobility, ROM Treatment/Plan Treatment Plan: Continue Plan of Care Treatment Plan: Bed Mobility, Education, Functional Activity Lisa, Functional Strength, Gait, Safety, Therapeutic Exercise, Transfers Treatment Duration: Jun 07, 2020 Frequency: 6 times per week Estimated Hrs Per Day: .25 hour per day Patient and/or Family Agrees t: Yes Safety Risks/Education Patient Education: Correct Positioning, Safety Issues Teaching Recipient: Patient Teaching Methods: Demonstration, Discussion Response to Teaching: Reinforcement Needed Time/GCodes Time In: 0947 Time Out: 1003 Total Billed Treatment Time: 16 Total Billed Treatment 1 visit FA 16' CHIQUI FAULKNER PT Jun 02, 2020 10:46
--- NOTE | 2020-06-02 10:47 | Occupational Ther Daily Note ---
OT Current Status-Daily Note Subjective Pt laying in bed. Hesitant to work with therapy stating she would like to call her daughter. Pt agreeable to therapy and assistance to call her daughter after tx. Pt's voice hoarse but pt is able to communicate with therapist Mental Status/Objective Attachments: Carpenter Catheter, IV, Oxygen ADL-Treatment Therapy Code Descriptions/Definitions Functional Power Measure: 0=Not Assessed/NA 4=Minimal Assistance 1=Total Assistance 5=Supervision or Setup 2=Maximal Assistance 6=Modified Power 3=Moderate Assistance 7=Complete IndependenceSCALE: Activities may be completed with or without assistive devices. 6-Uqwgxyenyn-xhtmpfw completes the activity by him/herself with no assistance from a helper. 5-Set-up or Clean-up Assistance-helper sets up or cleans up; patient completes activity. [place] assists only prior to or following the activity. 4-Supervision or Touching Assistance-helper provides verbal cues and/or t ouching/steadying and/or contact guard assistance as patient completes activity. Assistance may be provided throughout the activity or intermittently. 3-Partial/Moderate Assistance-helper does LESS THAN HALF the effort. [place] lifts, holds or supports trunk or limbs, but provides less than half the effort. 2-Substantial/Maximal Assistance-helper does MORE THAN HALF the effort. [place] lifts or holds trunk or limbs and provides more than half the effort. 8-Ipfpvfhqd-bnvuwz does ALL the effort. Patient does none of the effort to complete the activity. Or, the assistance of 2 or more helpers is required for the patient to complete the activity. If activity was not attempted, code reason: 7-Patient Refused. 9-Not Applicable-not attempted and the patient did not perform the activity before the current illness, exacerbation or injury. 10-Not Attempted due to Environmental Limitations-(lack of equipment, weather restraints, etc.). 88-Not Attempted due to Medical Conditions or Safety Concerns. Other Treatment Pt laying in bed, declined sitting EOB but agreeable with moderate encouragement. Pt indicates her daughter assists her with getting up at home. Pt transferred supine to sit EOB with dependent assist x2 person, 1 to assist with LE and 1 to assist with trunk support. Pt sat EOB with max A for trunk support, pt attempted to reach for side rail in attempt to support self but unable to move arm far enough, pt able to rest hands on bed during sitting. Pt sat EOB for ~10 mins, with encouragement and assist to maintain sitting as pt was leaning back heavily. Pt then assisted back to bed, dependent assist x2. Pt positioned to comfort. Pt then requested assistance to dial her daughter's phone number, pt unable to recall last 4 digits of phone number, indicating they are in her phone. Pt's phone not charged and number unable to be attained at this time. OT placed pt's cell phone on automotive service cashier and informed pt staff can help her once her phone turns on and the number could be located, pt verbalized understanding and agreement. Post OT tx, pt laying in bed, call light in reach and all needs met. Education OT Patient Education: Correct positioning, Modified ADL techniques, Progress toward Goal/Update tx plan, Purpose of tx/functional activities Teaching Recipient: Patient Teaching Methods: Discussion OT Enlisted Advisor Goals Longterm Goals Time Frame: Jun 16, 2020 Eating (QC): 5 Oral Hygiene (QC): 5 Toileting Hygiene (QC): 2 Shower/Bathe Self (QC): 1 Upper Body Dressing (QC): 2 Lower Body Dressing (QC): 1 On/Off Footwear (QC): 1 Additional Goals: 1-Demonstrate ADL Tasks, 3-ImproveStrength/Lisa 1=Demonstrate adherence to instructed precautions during ADL tasks. 2=Patient will verbalize/demonstrate understanding of assistive devices/modifications for ADL. 3=Patient will improve strength/tolerance for activity to enable patient to perform ADL's. OT Education/Plan Problem List/Assessment Assessment: Decreased Activ Tolerance, Decreased UE Strength, Dependent Transfers, Impaired Bed Mobility, Impaired Funct Balance, Impaired I ADL's, Impaired Self-Care Skills, Restricted Funct UE ROM Discharge Recommendations Plan/Recommendations: Continue POC Treatment Plan/Plan of Care Patient would benefit from OT for education, treatment and training to promote independence in ADL's, mobility, safety and/or upper extremity function for ADL's. Plan of Care: ADL Retraining, Functional Mobility, UE Funct Exercise/Act Treatment Duration: Jun 16, 2020 Frequency: 5 times per week Estimated Hrs Per Day: .25 hour per day Agreement: Yes Rehab Potential: Guarded Time/GCodes Start Time: 09:47 Stop Time: 10:03 Total Time Billed (hr/min): 16 Billed Treatment Time 1, DEN DELGADO OT Jun 02, 2020 10:47
--- NOTE | 2020-06-02 13:58 | NUR ---
"RD ASSESSMENT PMHx: hypercholesterolemia; HTN; seizure disorder; irritable bowel; DM PT INTERACTION: Note pt is currently in COVID isolation. Note attempt to contact pt for nutrition assessment via phone, but pt did not answer. Note all information gathered is per chart review. Note pt recent been intubated in ICU for several days. Note PO intake 100% x1meal. Note pt currently on CHO 60g/m 1snack diet with modifiers of DYS1 Pureed and [place]-Thick Liquids. Note last BM was 05/28, and pt currently on bowel regimen of colace PRN. Note recent 35# wt gain x17d. Note unable to determine current level of DM management, and note unable to determine recent HbA1c. ABNORMAL NUTRITION-RELATED LAB VALUES LOW: K 3.1; cr 0.44; Ca 8.1; Mg 1.5 HIGH: glu 126 Est. kcal needs: 1650 kcal | 25 kcal/kg IBW, based on IBW of 65.9 kg (145#) Est. Pro needs: 66 g Pro | 1.0 g Pro/kg IBW PES STATEMENT: Inadequate oral intake (NI-2.1) related to recent intubation | NPO status as evidenced by chart review INTERVENTION: Continue with current diet order of CHO 60g/m 1snack diet, with modifiers of DYS1 Pureed and [place]-Thick Liquids. Did not offer diet education on DM management, d/t COVID isolation. Will continue to follow and reassess as pt needs, intake, and status change. Kel Diaz, MS RD LD"
--- NOTE | 2020-06-02 14:33 | Speech Therapy Daily Note ---
Speech Daily Progress Note Subjective Date Seen by Provider: Jun 02, 2020 Time Seen by Provider: 00:15 Patient was moved to the acute floor this morning and is progressing. Objective Patient is using safety precautions as trained at 80% with verbal cues related to bite size/sips and alternating food/drink. Assessment Assessment Current Status: Good Progress Treatment Plan Continue Plan of Care Speech Short Term Goals Short Term Goals Short Term Goals 1) Patient will tolerate least restrictive diet level without s/s of aspiration at 90%. 2) Patient/caregiver will utilize compensatory strategies as trained at 90% or greater with minimal cues. Speech Ostrich Farm Worker Goals Care Home Goals Patient will maintain adequate nutrition/hydration via safe effective swallow function. Speech-Plan Patient/Family Goals Patient/Family Goals: Patient plans on returning home upon discharge. Treatment Plan Speech Therapy Treatment Plan: Continue Plan of Care Treatment Duration: Jun 11, 2020 Frequency: 4 times per week Estimated Hrs Per Day: .25 hour per day Rehab Potential: Guarded Barriers to Learning: Patient's recent critical illness. Pt/Family Agrees to Plan: Yes Safety Risks/Education Teaching Recipient: Patient Teaching Methods: Demonstration, Discussion Response to Teaching: Verbalize Understanding, Return Demonstration Education Topics Provided: Safety of oral intake Time Speech Therapy Time In: 11:15 Speech Therapy Time Out: 11:30 Total Billed Time: 15 Billed Treatment Time 1, TENISHA Cruz Jun 02, 2020 14:33
[2020-06-02] MEDS: LEVETIRACETAM 500 MG (KEPPRA) TAB PO SCH (21:25)
[2020-06-02] MEDS: PHENYTOIN 100 MG (DILANTIN) CAP PO SCH (21:26)
[2020-06-02] MEDS: MELATONIN 3 MG TABLET PO PRN (21:27)
[2020-06-03 00:43] VITALS: BP 132/67
[2020-06-03] MEDS: VANCOMYCIN 1250 MG/NS 250 ML IVPB IV SCH ×6 (00:49→16:59)
[2020-06-03] MEDS: ENOXAPARIN 60 MG/0.6 ML (LOVENOX) SYR SC SCH ×2 (02:17→13:17)
[2020-06-03] MEDS: RT-ALBUTEROL INHALER HFA (VENTOLIN HFA) 18 GM IH SCH ×7 (02:42→23:06)
[2020-06-03 04:54] VITALS: BP 109/71
[2020-06-03 05:27] LABS: BASOPHILS % (AUTO) 1 % (0-10); EOSINOPHILS # (AUTO) 0.1 10^3/uL (0.0-0.3); EOSINOPHILS % (AUTO) 3 % (0-10); HEMATOCRIT 29 % (35-52); HEMOGLOBIN 9.4 g/dL (11.5-16.0); MEAN CORPUSCULAR HEMOGLOBIN 31 pg (25-34); MEAN CORPUSCULAR HGB CONC 32 g/dL (32-36); MEAN CORPUSCULAR VOLUME 98 fL (80-99)
[2020-06-03 05:29] LABS: LYMPHOCYTES # (AUTO) 0.7 10^3/uL (1.0-4.0); LYMPHOCYTES % (AUTO) 31 % (12-44); MEAN PLATELET VOLUME 11.5 fL (9.0-12.2); MONOCYTES # (AUTO) 0.2 10^3/uL (0.0-1.0); MONOCYTES % (AUTO) 10 % (0-12); NEUTROPHILS # (AUTO) 1.2 10^3/uL (1.8-7.8); NEUTROPHILS % (AUTO) 55 % (42-75); PLATELET COUNT 61 10^3/uL (130-400); WHITE BLOOD COUNT 2.1 10^3/uL (4.3-11.0)
[2020-06-03] MEDS: inSUlin ASPART (NovoLOG) 1 UNIT/0.01 ML (CHARGE PER UNIT) SQ SCH ×5 (05:33→20:24)
[2020-06-03] MEDS: LACTATED RINGERS 1,000 ML IV SCH (06:31)
[2020-06-03] MEDS: KCL 20 MEQ TAB (K-DUR) PO SCH (06:31)
[2020-06-03 08:00] VITALS: BP 118/60
[2020-06-03] MEDS: METOCLOPRAMIDE INJ 10 MG/2 ML (REGLAN) IVP SCH (08:53)
[2020-06-03] MEDS: PANTOPRAZOLE 40 MG (PROTONIX) TAB PO SCH (08:54)
[2020-06-03] MEDS: MICONAZOLE 2% POWDER (DESENEX AF) 90 GM TOP SCH ×2 (08:54→21:56)
[2020-06-03] MEDS: PHENYTOIN 100 MG (DILANTIN) CAP PO SCH ×2 (08:54→21:55)
[2020-06-03] MEDS: fluCOnazole (DIFLUCAN) 100 MG TAB PO SCH (08:54)
[2020-06-03] MEDS: meTOprolol TARTRATE 25 MG (LOPRESSOR) TABLET PO SCH ×2 (08:54→21:55)
[2020-06-03] MEDS: VENLAFAXINE 50 MG (EFFEXOR) TABLET PO SCH ×2 (08:54→21:55)
[2020-06-03] MEDS: LEVETIRACETAM 500 MG (KEPPRA) TAB PO SCH ×2 (08:54→21:55)
[2020-06-03] MEDS: ARTIFICIAL TEARS OINT (LACRI-LUBE) 3.5 GM TUBE OU SCH ×2 (09:00→21:56)
[2020-06-03] MEDS: HYDROcodone/APAP 5 MG/325 MG (LORTAB) TAB PO PRN ×3 (10:07→17:01)
--- NOTE | 2020-06-03 10:07 | Progress Note - Hospitalist ---
Subjective HPI/CC On Admission Date Seen by Provider: Jun 03, 2020 Time Seen by Provider: 10:33 CC: Worsening COVID-19 condition requiring [place] to higher [place] [facility] [place]PI: This is a 55yoWF clinic patient of [facility] who presents following a 5 day course at [facility] after she was admitted presumptive COVID on Sunday along with Flu A placed on Tamiflu until COVID swab confirmed so Decadron was started along with convalescent plasma but started to worsen with higher fevers requiring initiation of Vanc and Cefepime for elevated PCT at 0.22. Vapotherm was started yesterday afternoon and this am she once again had decreased O2 sats and appeared to be worsening prompting transfer to [facility] for Pulmonology and critical care services. Subjective/Events-last exam Pt reports doing better today. Voice improving. Discussed discharge disposition. She refuses NH placement at this time and believes her 17yo granddaughter or her waist pleater will be able to lift her up to get to the bathroom when she needs it. Objective Exam Vital Signs Vital Signs Date Time Temp Pulse Resp B/P (MAP) Pulse Ox O2 Delivery O2 Flow Rate FiO2 06/03/20 08:00 35.7 82 20 118/60 (79) 95 Nasal Cannula 2.00 06/02/20 21:00 2 Capillary Refill : Less Than 3 Seconds General Appearance: No Apparent Distress, Chronically ill, Obese Respiratory: Lungs Clear, No Respiratory Distress Cardiovascular: Regular Rate, Rhythm, No Murmur Neurologic/Psychiatric: Alert, Oriented x3 Results/Procedures Lab Laboratory Tests 06/03/20 05:00 Patient resulted labs reviewed. Assessment/Plan Assessment and Plan Assess & Plan/Chief Complaint COVID + /influena A with acute respiratory failure and ARDS MRSA pneumonia -Continue vanco for ten days -Pt is doing well s/p extubation on NC currently -Swallow eval done and need pureed diet with nectar thick liquids -Check echo once pt is out of isolation -S/p tamiflu and 2 units of convalescent plasma [place] [facility] -s/p Convalescent plasma x 2 at [facility] Pancytopenia -Chronic and follows with Dr Chase Bell with probable DENNIS -Out pt testing is needed hx of brain surgery and seizures -Home seizure meds- will switch to oral today -Seizure precautions -PRN Ativan Hypokalemia,hypophos, hypomag -Replace and trend Critical illness myopathy - PT/OT - Will monitor for progression, may need SNF vs IRU - Pt declines SNF placement, discussed with SW and field manager of 4th floor, if not significant improvement in strength by next week will allow her family to visit one day when out of isolation to evaluate there ability to care for her at home GI and DVT PPX Critical Care Critically Ill Patient Diagnosis/Problems Diagnosis/Problems (1) Acute respiratory failure Status: Acute Qualifiers: Respiratory failure complication: hypoxia Qualified Codes: J96.01 - Acute respiratory failure with hypoxia (2) Seizure disorder Status: Chronic (3) COVID-19 Status: Acute (4) ARDS (adult respiratory distress syndrome) Clinical Quality Measures DVT/VTE Risk/Contraindication: Risk Factor Score Per Nursin RFS Level Per Nursing on Admit: 4+=Very High GREGG TOWNSEND MD Jun 03, 2020 10:07
[2020-06-03 12:00] VITALS: BP 150/74
--- NOTE | 2020-06-03 13:02 | NUR ---
Met with pt's daughter Flakita and discussed continued care needs for pt. Flakita states she is willing to care for her Mom and did assist with transfers but now that she is a 2 person transfer she doesn't know if she can possibly provide adequate care. Flakita doesn't live in the home as lives nearby but has 3 children and unsure pt's 15 year old granddaughter can provide necessary care. Flakita is willing to work with therapy staff next week to better asses pt's care needs. I will contact pt's case-hotel assistant manager and request hospital bed, maría lift and additional in-home care hours in case pt will be able to return home. Pt states if she is unable to be her caregiver she would choose [facility].Flakita is hoping that pt will improve and that working with therapy staff pt can return home with her assistance.
--- NOTE | 2020-06-03 14:16 | Occupational Ther Daily Note ---
OT Current Status-Daily Note Subjective Pt alert, lying in bed. PT and nrsg already in room. Pt agrees to therapy. Pt c/o pain at hips though did not rate. Mental Status/Objective Patient Orientation: Person, Place, Time, Situation Attachments: Carpenter Catheter, IV, Oxygen ADL-Treatment Therapy Code Descriptions/Definitions Functional [place] Measure: 0=Not Assessed/NA 4=Minimal Assistance 1=Total Assistance 5=Supervision or Setup 2=Maximal Assistance 6=Modified [place] 3=Moderate Assistance 7=Complete IndependenceSCALE: Activities may be completed with or without assistive devices. 1-Kigrveypib-fzsummz completes the activity by him/herself with no assistance from a helper. 5-Set-up or Clean-up Assistance-helper sets up or cleans up; patient completes activity. [place] assists only prior to or following the activity. 4-Supervision or Touching Assistance-helper provides verbal cues and/or touching/steadying and/or contact guard assistance as patient completes activity. Assistance may be provided throughout the activity or intermittently. 3-Partial/Moderate Assistance-helper does LESS THAN HALF the effort. [place] lifts, holds or supports trunk or limbs, but provides less than half the effort. 2-Substantial/Maximal Assistance-helper does MORE THAN HALF the effort. [place] lifts or holds trunk or limbs and provides more than half the effort. 1-Zgahbkfye-lxjwic does ALL the effort. Patient does none of the effort to complete the activity. Or, the assistance of 2 or more helpers is required for the patient to complete the activity. If activity was not attempted, code reason: 7-Patient Refused. 9-Not Applicable-not attempted and the patient did not perform the activity before the current illness, exacerbation or injury. 10-Not Attempted due to Environmental Limitations-(lack of equipment, weather restraints, etc.). 88-Not Attempted due to Medical Conditions or Safety Concerns. Other Treatment Co-treat with PT due to decrease activity tolerance, increased weakness, decreased mobility. PT and OT working on bed mobility and sitting EOB. Pt was assist x2 with supine to EOB with pt assisting with roll and attempting to come to sit then assist x1 to sit EOB initially. Pt then was able to hold onto plastic bowl, grasp spoon, scoop and bring to mouth. Then was able to hold onto cup and bring to mouth. Max A x2 for EOB to supine and all bed mobility. After session, pt lying in bed with call light/phone in reach. All needs met in room. OT Penitentiary Goals Penitentiary Goals Time Frame: Jun 16, 2020 Eating (QC): 5 Oral Hygiene (QC): 5 Toileting Hygiene (QC): 2 Shower/Bathe Self (QC): 1 Upper Body Dressing (QC): 2 Lower Body Dressing (QC): 1 On/Off Footwear (QC): 1 Additional Goals: 1-Demonstrate ADL Tasks, 3-ImproveStrength/Lisa 1=Demonstrate adherence to instructed precautions during ADL tasks. 2=Patient will verbalize/demonstrate understanding of assistive devices/modifications for ADL. 3=Patient will improve strength/tolerance for activity to enable patient to perform ADL's. OT Education/Plan Problem List/Assessment Assessment: Decreased Activ Tolerance, Decreased UE Strength, Dependent Transfers, Impaired Bed Mobility, Impaired Coordination, Impaired Funct Balance, Impaired I ADL's, Impaired Self-Care Skills, Restricted Funct UE ROM Discharge Recommendations Plan/Recommendations: Continue POC Treatment Plan/Plan of Care Patient would benefit from OT for education, treatment and training to promote independence in ADL's, mobility, safety and/or upper extremity function for ADL's. Plan of Care: ADL Retraining, Functional Mobility, UE Funct Exercise/Act Treatment Duration: Jun 16, 2020 Frequency: 5 times per week Estimated Hrs Per Day: .25 hour per day Agreement: Yes Rehab Potential: Guarded Time/GCodes Start Time: 13:15 Stop Time: 13:38 Total Time Billed (hr/min): 23 Billed Treatment Time 1 visit-FA 2 (23 min) HAI GOMEZ Jun 03, 2020 14:16
--- NOTE | 2020-06-03 14:47 | Physical Therapy Daily Note ---
PT Daily Note-Current Subjective Patient agrees to PT. PT/OT cotreat. Mental Status Patient Orientation: Normal For Age Attachments: Oxygen, Carpenter Catheter, IV Transfers SCALE: Activities may be completed with or without assistive devices. 1-Mzdmthlzkn-slcpydq completes the activity by him/herself with no assistance from a helper. 5-Set-up or Clean-up Assistance-helper sets up or cleans up; patient completes activity. [place] assists only prior to or following the activity. 4-Supervision or Touching Assistance-helper provides verbal cues and/or touching/steadying and/or contact guard assistance as patient completes activity. Assistance may be provided throughout the activity or intermittently. 3-Partial/Moderate Assistance-helper does LESS THAN HALF the effort. [place] lifts, holds or supports trunk or limbs, but provides less than half the effort. 2-Substantial/Maximal Assistance-helper does MORE THAN HALF the effort. [place] lifts or holds trunk or limbs and provides more than half the effort. 5-Mkimvabuo-vzztsd does ALL the effort. Patient does none of the effort to complete the activity. Or, the assistance of 2 or more helpers is required for the patient to complete the activity. If activity was not attempted, code reason: 7-Patient Refused. 9-Not Applicable-not attempted and the patient did not perform the activity before the current illness, exacerbation or injury. 10-Not Attempted due to Environmental Limitations-(lack of equipment, weather restraints, etc.). 88-Not Attempted due to Medical Conditions or Safety Concerns. Roll Left & Right (QC): 2 (x 2) Sit to Lying (QC): 2 ( x 2) Lying to Sitting/Side of Bed(Q: 2 (x 2) patient did assist by moving bilateral LE and attempting to roll to utilize upper body with supine to sit transfers and return, Patient sat EOB x 15 min eating and working on sitting balance and core strength Treatments Co-treat with PT due to decrease activity tolerance, increased weakness, decreased mobility. PT and OT working on bed mobility and sitting EOB. Pt was assist x2 with supine to EOB with pt assisting with roll and attempting to come to sit then assist x1 to sit EOB initially. Pt then was able to hold onto plastic bowl, grasp spoon, scoop and bring to mouth. Then was able to hold onto cup and bring to mouth. Max A x2 for EOB to supine and all bed mobility. After session, pt lying in bed with call light/phone in reach. All needs met in room. Assessment Patient improving with treatment plan. Patient is highly motivated and demands to attempt to perform activity as independently as possible. PT Embossing Machine Operator Goals Fpc Goals PT Fpc Goals Time Frame: Jun 07, 2020 Roll Left & Right (QC): 3 Sit to Lying (QC): 2 Lying-Sitting on Side/Bed(QC): 2 Chair/Vip-xg-Ievyy Xfer(QC): 1 PT Plan Treatment/Plan Treatment Plan: Continue Plan of Care Treatment Plan: Bed Mobility, Education, Functional Activity Lisa, Functional Strength, Gait, Safety, Therapeutic Exercise, Transfers Treatment Duration: Jun 07, 2020 Frequency: 6 times per week Estimated Hrs Per Day: .25 hour per day Patient and/or Family Agrees t: Yes Time/GCodes Time In: 1315 Time Out: 1338 Total Billed Treatment Time: 23 Total Billed Treatment 1 visit FA x 2 23 min ABRAHAN SORENSON PT Jun 03, 2020 14:47
--- NOTE | 2020-06-03 15:18 | Speech Therapy Daily Note ---
Speech Daily Progress Note Subjective Date Seen by Provider: Jun 03, 2020 Time Seen by Provider: 00:15 Patient seen during her morning meal. Objective Patient utilizing compensatory strategies as trained at 80% including bite/sip size and alternating food:drink. Assessment Assessment Current Status: Good Progress Treatment Plan Continue Plan of Care Speech Short Term Goals Short Term Goals Short Term Goals 1) Patient will tolerate least restrictive diet level without s/s of aspiration at 90%. 2) Patient/caregiver will utilize compensatory strategies as trained at 90% or greater with minimal cues. Speech Mcfp Goals Water Plumber Goals Patient will maintain adequate nutrition/hydration via safe effective swallow function. Speech-Plan Patient/Family Goals Patient/Family Goals: Patient plans on returning home where she will receive family support for her daily needs. Treatment Plan Speech Therapy Treatment Plan: Continue Plan of Care Treatment Duration: Jun 11, 2020 Frequency: 4 times per week Estimated Hrs Per Day: .25 hour per day Rehab Potential: Guarded Barriers to Learning: Patient's recent severe illness, decreased mobility Pt/Family Agrees to Plan: Yes Safety Risks/Education Teaching Recipient: Patient Teaching Methods: Demonstration, Discussion Response to Teaching: Verbalize Understanding, Return Demonstration Education Topics Provided: Continued safety of all oral intake Time Speech Therapy Time In: 08:10 Speech Therapy Time Out: 08:30 Total Billed Time: 15 Billed Treatment Time 1, TANIA TENISHA Ramirez Jun 03, 2020 15:18
[2020-06-03 16:22] VITALS: BP 128/56
--- NOTE | 2020-06-03 16:26 | NUR ---
PT DAUGHTER CALLED AND NOTIFIED OF OXYGEN HERE FOR PT TO DISCHARGE. DISCHARGE INSTRUCTIONS GONE OVER WITH PT DAUGHTER. PT DAUGHTER REPORTS WILL TAKE THEM AROUND 45MIN TO ARRIVE.
[2020-06-03 20:45] VITALS: BP 132/63
[2020-06-04] VITALS (9 sets, daily range): BP systolic 117–164; BP diastolic 63–79
[2020-06-04] MEDS: VANCOMYCIN 1250 MG/NS 250 ML IVPB IV SCH ×6 (00:42→17:19)
[2020-06-04] MEDS: ENOXAPARIN 60 MG/0.6 ML (LOVENOX) SYR SC SCH ×2 (00:45→13:58)
[2020-06-04] MEDS: RT-ALBUTEROL INHALER HFA (VENTOLIN HFA) 18 GM IH SCH ×5 (01:53→19:49)
[2020-06-04] MEDS: inSUlin ASPART (NovoLOG) 1 UNIT/0.01 ML (CHARGE PER UNIT) SQ SCH ×4 (06:08→20:13)
[2020-06-04] MEDS: HYDROcodone/APAP 5 MG/325 MG (LORTAB) TAB PO PRN ×2 (06:20→17:30)
[2020-06-04 06:43] LABS: BASOPHILS % (AUTO) 1 % (0-10); EOSINOPHILS # (AUTO) 0.1 10^3/uL (0.0-0.3); EOSINOPHILS % (AUTO) 4 % (0-10); HEMATOCRIT 31 % (35-52); HEMOGLOBIN 9.6 g/dL (11.5-16.0); LYMPHOCYTES # (AUTO) 0.5 10^3/uL (1.0-4.0); LYMPHOCYTES % (AUTO) 20 % (12-44); MEAN CORPUSCULAR HEMOGLOBIN 31 pg (25-34); MEAN CORPUSCULAR HGB CONC 31 g/dL (32-36); MEAN CORPUSCULAR VOLUME 99 fL (80-99); MEAN PLATELET VOLUME 11.1 fL (9.0-12.2); MONOCYTES # (AUTO) 0.2 10^3/uL (0.0-1.0); MONOCYTES % (AUTO) 9 % (0-12); NEUTROPHILS # (AUTO) 1.7 10^3/uL (1.8-7.8); NEUTROPHILS % (AUTO) 66 % (42-75); PLATELET COUNT 68 10^3/uL (130-400); WHITE BLOOD COUNT 2.6 10^3/uL (4.3-11.0)
[2020-06-04] MEDS ORDERED: TROUGH ORDER-PHARMACY XX ONE (07:00)
[2020-06-04] MEDS: LACTATED RINGERS 1,000 ML IV SCH (07:27)
[2020-06-04] MEDS: KCL 20 MEQ TAB (K-DUR) PO SCH (08:12)
[2020-06-04] MEDS: METOCLOPRAMIDE INJ 10 MG/2 ML (REGLAN) IVP SCH (08:12)
[2020-06-04] MEDS: ARTIFICIAL TEARS OINT (LACRI-LUBE) 3.5 GM TUBE OU SCH ×2 (08:13→20:12)
[2020-06-04] MEDS: MICONAZOLE 2% POWDER (DESENEX AF) 90 GM TOP SCH ×2 (08:13→20:12)
[2020-06-04] MEDS: LEVETIRACETAM 500 MG (KEPPRA) TAB PO SCH ×2 (08:14→20:13)
[2020-06-04] MEDS: meTOprolol TARTRATE 25 MG (LOPRESSOR) TABLET PO SCH ×2 (08:14→20:13)
[2020-06-04] MEDS: VENLAFAXINE 50 MG (EFFEXOR) TABLET PO SCH ×2 (08:15→20:13)
[2020-06-04] MEDS: PANTOPRAZOLE 40 MG (PROTONIX) TAB PO SCH (08:15)
[2020-06-04] MEDS: PHENYTOIN 100 MG (DILANTIN) CAP PO SCH ×2 (08:15→20:13)
[2020-06-04] MEDS: fluCOnazole (DIFLUCAN) 100 MG TAB PO SCH (08:25)
--- NOTE | 2020-06-04 10:54 | Progress Note - Hospitalist ---
Subjective HPI/CC On Admission Date Seen by Provider: Jun 04, 2020 Time Seen by Provider: 10:49 CC: Worsening COVID-19 condition requiring transfer to higher level from [facility] HPI: This is a 55yoWF clinic patient of [facility] who presents following a 5 day course at [facility] after she was admitted presumptive COVID on Sunday along with Flu A placed on Tamiflu until COVID swab confirmed so Decadron was started along with convalescent plasma but started to worsen with higher fevers requiring initiation of Vanc and Cefepime for elevated PCT at 0.22. Vapotherm was started yesterday afternoon and this am she once again had decreased O2 sats and appeared to be worsening prompting transfer to [facility] for Pulmonology and critical care services. Subjective/Events-last exam Pt reports wanting to go home. Was very tearful about going home. She states that he aluminum hydroxide process operator or her husnad could easily lift her because her was a box truck washer. Objective Exam Vital Signs Vital Signs Date Time Temp Pulse Resp B/P (MAP) Pulse Ox O2 Delivery O2 Flow Rate FiO2 06/04/20 09:00 Nasal Cannula 06/04/20 08:00 36.4 83 20 123/64 (83) 90 06/04/20 07:07 1.00 06/02/20 21:00 2 Capillary Refill : Less Than 3 SecondsLess Than 3 Seconds General Appearance: No Apparent Distress, Chronically ill Respiratory: Lungs Clear, No Respiratory Distress Cardiovascular: Regular Rate, Rhythm, No Murmur Gastrointestinal: Normal Bowel Sounds, Non Tender, Soft Neurologic/Psychiatric: Alert, Oriented x3 Results/Procedures Lab Laboratory Tests 06/04/20 05:50 Patient resulted labs reviewed. Assessment/Plan Assessment and Plan Assess & Plan/Chief Complaint COVID + /influena A with acute respiratory failure and ARDS MRSA pneumonia -Continue vanco for ten days -Pt is doing well s/p extubation, actually off oxygen today -Swallow eval done and need pureed diet with nectar thick liquids -Check echo once pt is out of isolation, Sunday -S/p tamiflu and 2 units of convalescent plasma at [facility] Pancytopenia -Chronic and follows with Dr Chase Bell with probable DENNIS -Out pt testing is needed hx of brain surgery and seizures -Home seizure meds- will switch to oral today -Seizure precautions -PRN Ativan Hypokalemia,hypophos, hypomag -Replace and trend Critical illness myopathy - PT/OT - Will monitor for progression, may need SNF vs IRU - Pt declines SNF placement, discussed with SW and shopper marketing manager of 4th floor, if not significant improvement in strength by next week will allow her family to visit one day when out of isolation to evaluate there ability to care for her at home - patient adamant about going home today but just not strong enough yet (max assist with PT yesterday for rolling even) discussed this with patient who was very tearful about need for continued hospitalization GI and DVT PPX Critical Care Critically Ill Patient Diagnosis/Problems Diagnosis/Problems (1) Acute respiratory failure Status: Acute Qualifiers: Respiratory failure complication: hypoxia Qualified Codes: J96.01 - Acute respiratory failure with hypoxia (2) Seizure disorder Status: Chronic (3) COVID-19 Status: Acute (4) ARDS (adult respiratory distress syndrome) Clinical Quality Measures DVT/VTE Risk/Contraindication: Risk Factor Score Per Nursin RFS Level Per Nursing on Admit: 4+=Very High GREGG TOWNSEND MD Jun 04, 2020 10:54
--- NOTE | 2020-06-04 12:54 | Physical Therapy Daily Note ---
PT Daily Note-Current Subjective Patient is currently on RA and reports she has had a bath, ate breakfast and is exhausted. Agrees to PT. Mental Status Patient Orientation: Normal For Age Attachments: Carpenter Catheter, IV Transfers SCALE: Activities may be completed with or without assistive devices. 8-Hdchomsfdv-dgkwmfe completes the activity by him/herself with no assistance from a helper. 5-Set-up or Clean-up Assistance-helper sets up or cleans up; patient completes activity. [place] assists only prior to or following the activity. 4-Supervision or Touching Assistance-helper provides verbal cues and/or touching/steadying and/or contact guard assistance as patient completes activity. Assistance may be provided throughout the activity or intermittently. 3-Partial/Moderate Assistance-helper does LESS THAN HALF the effort. [place] lifts, holds or supports trunk or limbs, but provides less than half the effort. 2-Substantial/Maximal Assistance-helper does MORE THAN HALF the effort. [place] lifts or holds trunk or limbs and provides more than half the effort. 3-Uoesldadu-pcmjol does ALL the effort. Patient does none of the effort to complete the activity. Or, the assistance of 2 or more helpers is required for the patient to complete the activity. If activity was not attempted, code reason: 7-Patient Refused. 9-Not Applicable-not attempted and the patient did not perform the activity before the current illness, exacerbation or injury. 10-Not Attempted due to Environmental Limitations-(lack of equipment, weather restraints, etc.). 88-Not Attempted due to Medical Conditions or Safety Concerns. Roll Left & Right (QC): 2 Sit to Lying (QC): 2 Lying to Sitting/Side of Bed(Q: 2 Placed bed in Trendelenburg to assist patient with bed mobility activity. Exercises Supine Ex: Ankle pumps (left), Heel Slides (right), Straight leg raise Supine Reps: 10 (AAROM) Assessment Patient sat EOB SBA with weight shifting due to hip discomfort. PT to increase activity as tolerated by patient. PT Mcfp Goals Mcfp Goals PT Investigator Cash Shortage Goals Time Frame: Jun 07, 2020 Roll Left & Right (QC): 3 Sit to Lying (QC): 2 Lying-Sitting on Side/Bed(QC): 2 Chair/Dkk-tj-Pzlbo Xfer(QC): 1 PT Plan Treatment/Plan Treatment Plan: Continue Plan of Care Treatment Plan: Bed Mobility, Education, Functional Activity Lisa, Functional Strength, Gait, Safety, Therapeutic Exercise, Transfers Treatment Duration: Jun 07, 2020 Frequency: 6 times per week Estimated Hrs Per Day: .25 hour per day Patient and/or Family Agrees t: Yes Time/GCodes Time In: 1118 Time Out: 1141 Total Billed Treatment Time: 23 Total Billed Treatment 1 visit FA x 2 23 min ABRAHAN SORENSON PT Jun 04, 2020 12:53
--- NOTE | 2020-06-04 13:09 | Occupational Ther Daily Note ---
OT Current Status-Daily Note Subjective Pt alert, lying in bed. Pt agrees to therapy. No c/o pain at this time. Mental Status/Objective Patient Orientation: Person, Place, Time, Situation Attachments: Carpenter Catheter, IV, Oxygen ADL-Treatment Therapy Code Descriptions/Definitions Functional [place] Measure: 0=Not Assessed/NA 4=Minimal Assistance 1=Total Assistance 5=Supervision or Setup 2=Maximal Assistance 6=Modified [place] 3=Moderate Assistance 7=Complete IndependenceSCALE: Activities may be completed with or without assistive devices. 7-Xayishqkty-wxaxeqa completes the activity by him/herself with no assistance from a helper. 5-Set-up or Clean-up Assistance-helper sets up or cleans up; patient completes activity. [place] assists only prior to or following the activity. 4-Supervision or Touching Assistance-helper provides verbal cues and/or touching/steadying and/or contact guard assistance as patient completes activit y. Assistance may be provided throughout the activity or intermittently. 3-Partial/Moderate Assistance-helper does LESS THAN HALF the effort. [place] lifts, holds or supports trunk or limbs, but provides less than half the effort. 2-Substantial/Maximal Assistance-helper does MORE THAN HALF the effort. [place] lifts or holds trunk or limbs and provides more than half the effort. 7-Ylomeuidn-zqoqmu does ALL the effort. Patient does none of the effort to complete the activity. Or, the assistance of 2 or more helpers is required for the patient to complete the activity. If activity was not attempted, code reason: 7-Patient Refused. 9-Not Applicable-not attempted and the patient did not perform the activity before the current illness, exacerbation or injury. 10-Not Attempted due to Environmental Limitations-(lack of equipment, weather restraints, etc.). 88-Not Attempted due to Medical Conditions or Safety Concerns. Other Treatment Pt demonstrated increased strength and AROM with B UE against gravity while completing UE movements in different planes. Pt discussed how she was able to assist with scooting up in bed during PT session. After therapy, pt lying in bed with call light/phone. All needs met in room. OT Half-Way Goals Plate Maker Goals Time Frame: Jun 16, 2020 Eating (QC): 5 Oral Hygiene (QC): 5 Toileting Hygiene (QC): 2 Shower/Bathe Self (QC): 1 Upper Body Dressing (QC): 2 Lower Body Dressing (QC): 1 On/Off Footwear (QC): 1 Additional Goals: 1-Demonstrate ADL Tasks, 3-ImproveStrength/Lisa 1=Demonstrate adherence to instructed precautions during ADL tasks. 2=Patient will verbalize/demonstrate understanding of assistive devices/modific ations for ADL. 3=Patient will improve strength/tolerance for activity to enable patient to perform ADL's. OT Education/Plan Problem List/Assessment Assessment: Decreased Activ Tolerance, Decreased UE Strength, Impaired Self- Care Skills, Restricted Funct UE ROM Discharge Recommendations Plan/Recommendations: Continue POC Treatment Plan/Plan of Care Patient would benefit from OT for education, treatment and training to promote independence in ADL's, mobility, safety and/or upper extremity function for ADL's. Plan of Care: ADL Retraining, Functional Mobility, UE Funct Exercise/Act Treatment Duration: Jun 16, 2020 Frequency: 5 times per week Estimated Hrs Per Day: .25 hour per day Agreement: Yes Rehab Potential: Guarded Time/GCodes Start Time: 11:41 Stop Time: 12:04 Total Time Billed (hr/min): 23 Billed Treatment Time 1 visit-FA 2 (23 min) HAI GOMEZ Jun 04, 2020 13:09
--- NOTE | 2020-06-04 13:53 | NUR ---
Discussed with pt's daughter Flakita pt's unrealistic request to be discharged home today. Flakita agrees that they would be unable to provide pt care unless she has greater strength and ability to aid in transfers. Flakita states pt does have a Significant Other who is employed as an over the road gravel truck driver and is in the home intermittently She plans to discuss with him his availability to assist pt in the home. Plans are for pt to be involved in therapy sessions next week to assess pt's continued care needs. Advised Flakita to phone pt if possible to enhance her thinking and mood.
[2020-06-04] MEDS: ALPRAZolam 0.25 MG (XANAX) TAB PO PRN (20:13)
[2020-06-04] MEDS: MELATONIN 3 MG TABLET PO PRN (20:13)
[2020-06-05] MEDS: VANCOMYCIN 1250 MG/NS 250 ML IVPB IV SCH ×4 (00:14→13:39)
[2020-06-05] MEDS: ENOXAPARIN 60 MG/0.6 ML (LOVENOX) SYR SC SCH ×2 (00:15→13:41)
[2020-06-05] MEDS: KCL 20 MEQ TAB (K-DUR) PO SCH (05:03)
[2020-06-05] MEDS: inSUlin ASPART (NovoLOG) 1 UNIT/0.01 ML (CHARGE PER UNIT) SQ SCH ×4 (05:03→21:22)
[2020-06-05] MEDS: LACTATED RINGERS 1,000 ML IV SCH (05:06)
[2020-06-05 05:45] LABS: BASOPHILS % (AUTO) 0 % (0-10); MEAN CORPUSCULAR VOLUME 99 fL (80-99)
[2020-06-05 05:47] LABS: EOSINOPHILS # (AUTO) 0.1 10^3/uL (0.0-0.3); EOSINOPHILS % (AUTO) 4 % (0-10); HEMATOCRIT 31 % (35-52); HEMOGLOBIN 9.8 g/dL (11.5-16.0); LYMPHOCYTES # (AUTO) 0.6 10^3/uL (1.0-4.0); LYMPHOCYTES % (AUTO) 25 % (12-44); MEAN CORPUSCULAR HEMOGLOBIN 32 pg (25-34); MEAN CORPUSCULAR HGB CONC 32 g/dL (32-36); MEAN PLATELET VOLUME 10.7 fL (9.0-12.2); MONOCYTES # (AUTO) 0.2 10^3/uL (0.0-1.0); MONOCYTES % (AUTO) 9 % (0-12); NEUTROPHILS # (AUTO) 1.4 10^3/uL (1.8-7.8); NEUTROPHILS % (AUTO) 61 % (42-75); PLATELET COUNT 74 10^3/uL (130-400); WHITE BLOOD COUNT 2.4 10^3/uL (4.3-11.0)
[2020-06-05 08:00] VITALS: BP 129/71
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
--- NOTE | 2020-06-05 09:40 | NUR ---
PT TRANSFERRED TO WHEELCHAIR AT THIS TIME. THIS RN AND BLANCA AVILES WILL TAKE PT TO ED ENTRANCE WHERE DAUGHTER IS WAITING TO TAKE PT HOME.
[2020-06-05] MEDS: RT-ALBUTEROL INHALER HFA (VENTOLIN HFA) 18 GM IH SCH ×4 (09:54→20:30)
--- NOTE | 2020-06-05 10:00 | NUR ---
SEVERAL ATTEMPTS MADE TO TRANSFER PT TO DAUGHTER'S PRIVATE VEHICLE FOR THE LAST 30 MINUTES. PT IS UNABLE TO TRANSFER WITHOUT CONSIDERABLE HELP BY 3+ PEOPLE. THIS RN MAKES MULTIPLE ATTEMPTS TO RE-EDUCATE PT ON THE IMPORTANCE OF STAYING FOR PHYSICAL THERAPY AND TO CONTINUE THE COURSE OF TREATMENT THAT THE DOCTORS HAVE SET FOR HER. PT STATES, "I DONT WANT TO STAY HERE. I WANT TO GO HOME." THIS RN, DAUGHTER, AND JAELYN (PCT) AGAIN ATTEMPT TO TRANSFER PT FROM WHEELCHAIR TO VEHICLE. PT STANDS X2 MAX ASSIST, BUT IS UNABLE TO PIVOT INTO THE CAR. PT THEN PROCEEDS TO SIT ON THIS RN PINNING HER BETWEEN WHEELCHAIR AND PT'S SELF. RN IS ABLE TO FREE HERSELF FROM WHEELCHAIR AND PT. PT IS THEN READJUSTED IN WHEELCHAIR. THIS RN THEN CALLS FINANCIAL ADVISOR TO NOTIFY OF NEED FOR HELP WITH PT.
--- NOTE | 2020-06-05 10:09 | Discharge Summary ---
Diagnosis/Chief Complaint Date of Admission May 16, 2020 at 11:36 Date of Discharge Discharge Date: Jun 05, 2020 Admission Diagnosis Assessment: COVID-19 Pneumonitis s/o Decadron Day # 5 today and Plasma Worsened respiratory insufficiency Bacterial bronchitis placed on Cefepime and Vanc Day # 2 Obesity Presumed DENNIS Brain surgery hx Chronic leukopenia and thrombocytopenia from liver and spleen enlargement per Dr Stone Plan: ICU care IVF IV abx Antiviral Primary Care Discharge Diagnosis (1) Acute respiratory failure Status: Acute (2) Seizure disorder Status: Chronic (3) COVID-19 Status: Acute (4) ARDS (adult respiratory distress syndrome) Discharge Summary Procedures/Consulations Pulm- Dr Betts Discharge Physical Exam Allergies: Coded Allergies: Penicillins (Verified Allergy, Severe, HIVES, 04/21/13) tramadol HCl (Verified Allergy, Severe, HIVES, 04/21/13) hives and sweats ondansetron HCl (Verified Adverse Reaction, Intermediate, RASH, 04/21/13) Vitals & I&Os Vital Signs Date Time Temp Pulse Resp B/P (MAP) Pulse Ox O2 Delivery O2 Flow Rate FiO2 06/05/20 08:00 36.0 89 16 129/71 (90) 93 Room Air 06/04/20 16:49 21 06/04/20 14:41 1.00 General Appearance: No Apparent Distress, Chronically ill, Obese Neurologic/Psychiatric: Alert, Oriented x3 Hospital Course Pt is a 55yoCF who was admitted due to acute respiratory failure due to COVID19. She had a prolonged stay with roughly 2 weeks on mechanical ventilation with proning. She was eventually able to be liberated from the vent after treatment with convalescent plasma, remdesivir, and decadron. She was actually able to be weaned off oxygen completely but due to critical illness myopathy she was quite weak. She was seen by PT/OT and did show progression but was max assist with rolling in bed still. She and I discussed a plan to work with therapy over the weekend and then allow her family to come in Sunday when she's off isolation to allow them to assess her debility and if they would be able to provide her the care she needed. Unfortunately after agreeing to this she became adamant about leaving the hospital on day of discharge and called her daughter and insisted her daughter pick her up. She signed AMA paperwork and the risks of leaving before medical optimization were discussed with her (including and debility from her being unable to get out of the house in an emergency) and she accepted these risks as she only "lives 4 miles from her doctor." Labs (last 24 hrs) Laboratory Tests 06/04/20 16:17: Glucometer 124H 06/04/20 20:09: Glucometer 138H 06/05/20 04:59: Glucometer 415*H 06/05/20 05:40: White Blood Count 2.4L, Red Blood Count 3.09L, Hemoglobin 9.8L, Hematocrit 31L, Mean Corpuscular Volume 99, Mean Corpuscular Hemoglobin 32, Mean Corpuscular Hemoglobin Concent 32, Red Cell Distribution Width 16.0H, Platelet Count 74L, Mean Platelet Volume 10.7, Immature Granulocyte % (Auto) 1, Neutrophils (%) (Auto) 61, Lymphocytes (%) (Auto) 25, Monocytes (%) (Auto) 9, Eosinophils (%) (Auto) 4, Basophils (%) (Auto) 0, Neutrophils # (Auto) 1.4L, Lymphocytes # (Auto) 0.6L, Monocytes # (Auto) 0.2, Eosinophils # (Auto) 0.1, Basophils # (Auto) 0.0, Immature Granulocyte # (Auto) 0.0 06/05/20 11:19: Glucometer 136H Microbiology 05/28/20 Gram Stain - Final, Complete 05/28/20 Sputum Culture - Final, Complete Staphylococcus aureus 05/26/20 Urine Culture - Final, Complete YEAST 05/16/20 Blood Culture - Final, Complete No growth Patient resulted labs reviewed. Pending Labs Laboratory Tests 06/05/20 04:59: Glucometer 415 06/05/20 05:40: White Blood Count 2.4, Red Blood Count 3.09, Hemoglobin 9.8, Hematocrit 31, Mean Corpuscular Volume 99, Mean Corpuscular Hemoglobin 32, Mean Corpuscular Hemoglobin Concent 32, Red Cell Distribution Width 16.0, Platelet Count 74, Mean Platelet Volume 10.7, Immature Granulocyte % (Auto) 1, Neutrophils (%) (Auto) 61, Lymphocytes (%) (Auto) 25, Monocytes (%) (Auto) 9, Eosinophils (%) (Auto) 4, Basophils (%) (Auto) 0, Neutrophils # (Auto) 1.4, Lymphocytes # (Auto) 0.6, Monocytes # (Auto) 0.2, Eosinophils # (Auto) 0.1, Basophils # (Auto) 0.0, Immature Granulocyte # (Auto) 0.0 06/05/20 11:19: Glucometer 136 Discharge Home Medications: Active Scripts Active Reported Hydrocodone-Acetamin 5-325 mg (Hydrocodone/Acetaminophen) 1 Each Tablet 1-2 Ea PO Q8H PRN Trazodone HCl 100 Mg Tablet 150 Mg PO HS TAKES 1 & 1/2 (100MG) TABS Farxiga (Dapagliflozin Propanediol) 10 Mg Tablet 10 Mg PO DAILY Venlafaxine HCl 100 Mg Tablet 100 Mg PO BID Levetiracetam 500 Mg Tablet 1,500 Mg PO BID TAKES 3 (500MG) TABS TWICE DAILY Metformin HCl 1,000 Mg Tablet 1,000 Mg PO BID Pravastatin Sodium 20 Mg Tablet 20 Mg PO DAILY Triamcinolone Acetonide 0.1% Cream (Triamcinolone Acet) 15 Gm Cr 1 Applic TOP PRN PRN Metoprolol Tartrate 50 Mg Tablet 50 Mg PO BID Phenytoin Sodium Extended 100 Mg Capsule 100 Mg PO HS Phenytoin Sodium Extended 100 Mg Capsule 200 Mg PO DAILY TAKES 2 (100MG) CAPS Buspirone HCl 10 Mg Tablet 10 Mg PO TID PRN Lisinopril 5 Mg Tablet 5 Mg PO DAILY Instructions to patient/family Please see electronic discharge instructions given to patient. Clinical Quality Measures DVT/VTE Risk/Contraindication: Risk Factor Score Per Nursin RFS Level Per Nursing on Admit: 4+=Very High Problem Qualifiers (1) Acute respiratory failure: Respiratory failure complication: hypoxia Qualified Codes: J96.01 - Acute respiratory failure with hypoxia GREGG TOWNSEND MD Jun 05, 2020 10:09
--- NOTE | 2020-06-05 10:15 | NUR ---
COMMUNITY HEALTH NURSE, JACQUELIN, ARRIVES TO PT SIDE AT THIS TIME. HS EDUCATES PT ON THE IMPORTANCE OF STAYING AT THE HOSPITAL SO PT CAN CONTINUE TO HEAL. THIS RN AND PCT STAY AT PT SIDE WHILE HS SPEAKS WITH PT AND FAMILY FOR ABOUT 20 MORE MINUTES BEFORE GETTING A CALL ABOUT ANOTHER PT NEEDING ASSISTANCE. THIS RN AND PCT (JAELYN) ANNOUNCE THAT THEY NEED TO GET BACK UP TO THE FLOOR. HS STATES, "I WILL BRING HER IN. NO WORRIES."
--- NOTE | 2020-06-05 10:48 | NUR ---
PT ARRIVES BACK TO FLOOR AT THIS TIME. HS AT SIDE. PT TAKEN BACK TO ROOM 429. PT TO HELP WITH TRANSFER FROM WHEELCHAIR TO BED.
--- NOTE | 2020-06-05 11:21 | Physical Therapy Daily Note ---
PT Daily Note-Current Subjective Pt presents in wheelchair with LITA Grijalva, and requests return to bed at this time. No complaints of pain. Appearance Following session, pt supine in bed with tray and call light within reach. All needs met at this time. Mental Status Patient Orientation: Person, Situation Transfers SCALE: Activities may be completed with or without assistive devices. 2-Ntowcolijj-ehmvlpb completes the activity by him/herself with no assistance from a helper. 5-Set-up or Clean-up Assistance-helper sets up or cleans up; patient completes activity. [place] assists only prior to or following the activity. 4-Supervision or Touching Assistance-helper provides verbal cues and/or touching/steadying and/or contact guard assistance as patient completes a ctivity. Assistance may be provided throughout the activity or intermittently. 3-Partial/Moderate Assistance-helper does LESS THAN HALF the effort. [place] lifts, holds or supports trunk or limbs, but provides less than half the effort. 2-Substantial/Maximal Assistance-helper does MORE THAN HALF the effort. [place] lifts or holds trunk or limbs and provides more than half the effort. 8-Mpsfvtduw-mwrkvz does ALL the effort. Patient does none of the effort to complete the activity. Or, the assistance of 2 or more helpers is required for the patient to complete the activity. If activity was not attempted, code reason: 7-Patient Refused. 9-Not Applicable-not attempted and the patient did not perform the activity before the current illness, exacerbation or injury. 10-Not Attempted due to Environmental Limitations-(lack of equipment, weather restraints, etc.). 88-Not Attempted due to Medical Conditions or Safety Concerns. Sit to Lying (QC): 1 Chair/Rtt-wg-Iynoe Xfer(QC): 1 Transfer from wheelchair to bed, with MAX A x3 people. Pt able to maintain upright posture, but unable to progress legs to take steps to turn to face the bed. Pt then is dependent x 2 to return to supine position from EOB. Treatments Transferring pt from wheelchair to bed Assessment Current Status: Fair Progress Pt with decreased strength and activity tolerance which impact her functional mobility, as pt is unable to even assist with transferring this date. Will continue to progress tolerance as able PT Rail Splitter Goals Rail Splitter Goals PT Rail Splitter Goals Time Frame: Jun 07, 2020 Roll Left & Right (QC): 3 Sit to Lying (QC): 2 Lying-Sitting on Side/Bed(QC): 2 Chair/Cxe-bz-Ncdzy Xfer(QC): 1 PT Plan Problem List Problem List: Activity Tolerance, Functional Strength, Safety, Balance, Gait, Transfer, Bed Mobility, ROM Treatment/Plan Treatment Plan: Continue Plan of Care Treatment Plan: Bed Mobility, Education, Functional Activity Lisa, Functional Strength, Gait, Safety, Therapeutic Exercise, Transfers Treatment Duration: Jun 07, 2020 Frequency: 6 times per week Estimated Hrs Per Day: .25 hour per day Patient and/or Family Agrees t: Yes Time/GCodes Time In: 1035 Time Out: 1045 Total Billed Treatment Time: 10 Total Billed Treatment 1 visit FA (10') SILVIA CESAR PT Jun 05, 2020 11:21
--- NOTE | 2020-06-05 11:24 | Progress Note - Hospitalist ---
Subjective HPI/CC On Admission Date Seen by Provider: Jun 05, 2020 Time Seen by Provider: 11:17 CC: Worsening COVID-19 condition requiring transfer to higher level from [facility] HPI: This is a 55yoWF clinic patient of [facility] who presents following a 5 day course at [facility] after she was admitted presumptive COVID on Sunday along with Flu A placed on Tamiflu until COVID swab confirmed so Decadron was started along with convalescent plasma but started to worsen with higher fevers requiring initiation of Vanc and Cefepime for elevated PCT at 0.22. Vapotherm was started yesterday afternoon and this am she once again had decreased O2 sats and appeared to be worsening prompting transfer to [facility] for Pulmonology and critical care services. Subjective/Events-last exam Pt very tearful after attempting to leave AMA this morning but was unable to get in the car due to weakness. Discussed need to continue to work on her strength and she agreed. Objective Exam Vital Signs Vital Signs Date Time Temp Pulse Resp B/P (MAP) Pulse Ox O2 Delivery O2 Flow Rate FiO2 06/05/20 08:00 36.0 89 16 129/71 (90) 93 Room Air 06/04/20 16:49 21 06/04/20 14:41 1.00 Capillary Refill : Less Than 3 SecondsLess Than 3 Seconds General Appearance: No Apparent Distress, Chronically ill, Other (upset and crying) Respiratory: Lungs Clear, No Respiratory Distress Cardiovascular: Regular Rate, Rhythm, No Murmur Gastrointestinal: Normal Bowel Sounds, Non Tender, Soft Neurologic/Psychiatric: Alert, Oriented x3 Results/Procedures Lab Laboratory Tests 06/05/20 05:40 Patient resulted labs reviewed. Assessment/Plan Assessment and Plan Assess & Plan/Chief Complaint COVID + /influena A with acute respiratory failure and ARDS MRSA pneumonia -Continue vanco for ten days -Swallow eval done and need pureed diet with nectar thick liquids -Check echo once pt is out of isolation, Sunday -S/p tamiflu and 2 units of convalescent plasma at [facility] Pancytopenia -Chronic and follows with Dr Chase Bell with probable DENNIS -Out pt testing is needed hx of brain surgery and seizures -Home seizure meds- will switch to oral today -Seizure precautions -PRN Ativan Hypokalemia,hypophos, hypomag -Replace and trend Critical illness myopathy - PT/OT - Will monitor for progression, may need SNF vs IRU - Pt declines SNF placement, discussed with SW and manager internet retails sales of 4th floor, if not significant improvement in strength by next week will allow her family to visit one day when out of isolation to evaluate there ability to care for her at home - patient adamant about going home today but just not strong enough yet (max assist with PT yesterday for rolling even) discussed this with patient who was very tearful about need for continued hospitalization - Attempted to leave AMA but too weak to do so, now agreeable to staying for PT/OT GI and DVT PPX Critical Care Critically Ill Patient Diagnosis/Problems Diagnosis/Problems (1) Acute respiratory failure Status: Acute Qualifiers: Respiratory failure complication: hypoxia Qualified Codes: J96.01 - Acute respiratory failure with hypoxia (2) Seizure disorder Status: Chronic (3) COVID-19 Status: Acute (4) ARDS (adult respiratory distress syndrome) Clinical Quality Measures DVT/VTE Risk/Contraindication: Risk Factor Score Per Nursin RFS Level Per Nursing on Admit: 4+=Very High GREGG TOWNSEND MD Jun 05, 2020 11:24
[2020-06-05] MEDS: meTOprolol TARTRATE 25 MG (LOPRESSOR) TABLET PO SCH ×2 (13:37→21:36)
[2020-06-05] MEDS: PHENYTOIN 100 MG (DILANTIN) CAP PO SCH ×2 (13:37→21:34)
[2020-06-05] MEDS: METOCLOPRAMIDE INJ 10 MG/2 ML (REGLAN) IVP SCH (13:37)
[2020-06-05] MEDS: PANTOPRAZOLE 40 MG (PROTONIX) TAB PO SCH (13:37)
[2020-06-05] MEDS: VENLAFAXINE 50 MG (EFFEXOR) TABLET PO SCH ×2 (13:37→21:34)
[2020-06-05] MEDS: LEVETIRACETAM 500 MG (KEPPRA) TAB PO SCH ×2 (13:37→21:34)
[2020-06-05] MEDS: ARTIFICIAL TEARS OINT (LACRI-LUBE) 3.5 GM TUBE OU SCH ×2 (13:38→21:34)
[2020-06-05] MEDS: fluCOnazole (DIFLUCAN) 100 MG TAB PO SCH (13:38)
[2020-06-05] MEDS: HYDROcodone/APAP 5 MG/325 MG (LORTAB) TAB PO PRN ×2 (13:40→21:46)
[2020-06-05] MEDS: morphine INJ 4 MG/ML 1 ML (VIAL/SYRINGE) IVP PRN (13:40)
[2020-06-05] MEDS: MICONAZOLE 2% POWDER (DESENEX AF) 90 GM TOP SCH ×2 (13:41→21:35)
[2020-06-05 15:46] VITALS: BP 118/72
[2020-06-05] MEDS: VANCOMYCIN INJECTION 1,250 MG in NS (IVPB) 250 ML IV SCH (21:34)
[2020-06-05] MEDS: ALPRAZolam 0.25 MG (XANAX) TAB PO PRN (21:46)
[2020-06-06] VITALS: BP 118/74
[2020-06-06] MEDS: ENOXAPARIN 60 MG/0.6 ML (LOVENOX) SYR SC SCH ×2 (01:56→13:42)
[2020-06-06] MEDS: LACTATED RINGERS 1,000 ML IV SCH (01:56)
[2020-06-06] MEDS: inSUlin ASPART (NovoLOG) 1 UNIT/0.01 ML (CHARGE PER UNIT) SQ SCH ×4 (06:12→21:32)
[2020-06-06] MEDS: KCL 20 MEQ TAB (K-DUR) PO SCH (06:31)
[2020-06-06] MEDS: VANCOMYCIN INJECTION 1,250 MG in NS (IVPB) 250 ML IV SCH ×3 (06:31→21:41)
[2020-06-06 06:48] LABS: BASOPHILS % (AUTO) 1 % (0-10); EOSINOPHILS # (AUTO) 0.1 10^3/uL (0.0-0.3); EOSINOPHILS % (AUTO) 6 % (0-10); HEMATOCRIT 33 % (35-52); HEMOGLOBIN 10.2 g/dL (11.5-16.0); LYMPHOCYTES # (AUTO) 0.6 10^3/uL (1.0-4.0); LYMPHOCYTES % (AUTO) 32 % (12-44); MEAN CORPUSCULAR HEMOGLOBIN 31 pg (25-34); MEAN CORPUSCULAR HGB CONC 31 g/dL (32-36); MEAN CORPUSCULAR VOLUME 100 fL (80-99); MEAN PLATELET VOLUME 11.1 fL (9.0-12.2); MONOCYTES # (AUTO) 0.1 10^3/uL (0.0-1.0); MONOCYTES % (AUTO) 8 % (0-12); NEUTROPHILS % (AUTO) 53 % (42-75); PLATELET COUNT 75 10^3/uL (130-400); WHITE BLOOD COUNT 1.8 10^3/uL (4.3-11.0)
[2020-06-06] MEDS: RT-ALBUTEROL INHALER HFA (VENTOLIN HFA) 18 GM IH SCH ×4 (07:36→19:18)
[2020-06-06 08:00] VITALS: BP_SYST 118; BP_SYST 173; BP_DIAS 69; BP_DIAS 72
[2020-06-06] MEDS: METOCLOPRAMIDE INJ 10 MG/2 ML (REGLAN) IVP SCH (09:05)
[2020-06-06] MEDS: VENLAFAXINE 50 MG (EFFEXOR) TABLET PO SCH ×2 (09:05→21:38)
[2020-06-06] MEDS: LEVETIRACETAM 500 MG (KEPPRA) TAB PO SCH ×2 (09:05→21:39)
[2020-06-06] MEDS: PANTOPRAZOLE 40 MG (PROTONIX) TAB PO SCH (09:05)
[2020-06-06] MEDS: meTOprolol TARTRATE 25 MG (LOPRESSOR) TABLET PO SCH ×2 (09:05→21:38)
[2020-06-06] MEDS: fluCOnazole (DIFLUCAN) 100 MG TAB PO SCH (09:05)
[2020-06-06] MEDS: PHENYTOIN 100 MG (DILANTIN) CAP PO SCH ×2 (09:05→21:38)
[2020-06-06] MEDS: ARTIFICIAL TEARS OINT (LACRI-LUBE) 3.5 GM TUBE OU SCH ×2 (09:06→21:38)
[2020-06-06] MEDS: MICONAZOLE 2% POWDER (DESENEX AF) 90 GM TOP SCH ×2 (09:06→21:41)
--- NOTE | 2020-06-06 10:43 | Progress Note - Hospitalist ---
Subjective HPI/CC On Admission Date Seen by Provider: Jun 06, 2020 Time Seen by Provider: 10:39 Subjective/Events-last exam Pt reports doing well. No complaints. Was apologetics regarding events from yesterday and states she now realized her deficits. Objective Exam Vital Signs Vital Signs Date Time Temp Pulse Resp B/P (MAP) Pulse Ox O2 Delivery O2 Flow Rate FiO2 06/06/20 10:19 91 Nasal Cannula 2.00 06/06/20 08:00 35.6 81 20 118/69 (85) 06/04/20 16:49 21 Capillary Refill : Less Than 3 SecondsLess Than 3 Seconds General Appearance: No Apparent Distress, Chronically ill, Obese Respiratory: Lungs Clear, No Accessory Muscle Use, No Respiratory Distress Cardiovascular: Regular Rate, Rhythm, No Murmur Gastrointestinal: Normal Bowel Sounds, Non Tender, Soft Neurologic/Psychiatric: Alert, Oriented x3, Normal Mood/Affect Results/Procedures Lab Laboratory Tests 06/06/20 06:13 Patient resulted labs reviewed. Assessment/Plan Assessment and Plan Assess & Plan/Chief Complaint COVID + /influena A with acute respiratory failure and ARDS MRSA pneumonia -Continue vanco for ten days -Swallow eval done and need pureed diet with nectar thick liquids -Check echo once pt is out of isolation, Sunday -S/p tamiflu and 2 units of convalescent plasma at [facility] Pancytopenia -Chronic and follows with Dr Stone Obesity with probable DENNIS -Out pt testing is needed hx of brain surgery and seizures -Home seizure meds -Seizure precautions -PRN Ativan Hypokalemia,hypophos, hypomag -Replace and trend Critical illness myopathy - PT/OT - Will monitor for progression, may need SNF vs IRU - Pt declines SNF placement, discussed with SW and retail sales manager of 4th floor, if not significant improvement in strength by next week will allow her family to visit one day when out of isolation to evaluate there ability to care for her at home GI and DVT PPX Critical Care Critically Ill Patient Diagnosis/Problems Diagnosis/Problems (1) Acute respiratory failure Status: Acute Qualifiers: Respiratory failure complication: hypoxia Qualified Codes: J96.01 - Acute respiratory failure with hypoxia (2) Seizure disorder Status: Chronic (3) COVID-19 Status: Acute (4) ARDS (adult respiratory distress syndrome) Clinical Quality Measures DVT/VTE Risk/Contraindication: Risk Factor Score Per Nursin RFS Level Per Nursing on Admit: 4+=Very High GREGG TOWNSEND MD Jun 06, 2020 10:43
[2020-06-06] MEDS: HYDROcodone/APAP 5 MG/325 MG (LORTAB) TAB PO PRN ×2 (13:42→21:39)
[2020-06-06 17:00] VITALS: BP 121/59
[2020-06-06] MEDS: MELATONIN 3 MG TABLET PO PRN (21:39)
[2020-06-06] MEDS: ALPRAZolam 0.25 MG (XANAX) TAB PO PRN (21:39)
[2020-06-06 23:17] VITALS: BP 124/70
[2020-06-07] MEDS: VANCOMYCIN INJECTION 1,250 MG in NS (IVPB) 250 ML IV SCH (01:05)
[2020-06-07] MEDS: ENOXAPARIN 60 MG/0.6 ML (LOVENOX) SYR SC SCH ×2 (01:46→12:09)
[2020-06-07] MEDS: inSUlin ASPART (NovoLOG) 1 UNIT/0.01 ML (CHARGE PER UNIT) SQ SCH ×4 (06:00→21:28)
[2020-06-07] MEDS: KCL 20 MEQ TAB (K-DUR) PO SCH ×2 (06:00→09:40)
[2020-06-07 07:28] VITALS: BP 120/75
[2020-06-07] MEDS: RT-ALBUTEROL INHALER HFA (VENTOLIN HFA) 18 GM IH SCH ×4 (07:48→21:24)
[2020-06-07] MEDS: METOCLOPRAMIDE INJ 10 MG/2 ML (REGLAN) IVP SCH (09:38)
[2020-06-07] MEDS: PHENYTOIN 100 MG (DILANTIN) CAP PO SCH ×2 (09:39→20:40)
[2020-06-07] MEDS: PANTOPRAZOLE 40 MG (PROTONIX) TAB PO SCH (09:39)
[2020-06-07] MEDS: VENLAFAXINE 50 MG (EFFEXOR) TABLET PO SCH ×2 (09:39→20:40)
[2020-06-07] MEDS: fluCOnazole (DIFLUCAN) 100 MG TAB PO SCH (09:40)
[2020-06-07] MEDS: meTOprolol TARTRATE 25 MG (LOPRESSOR) TABLET PO SCH ×2 (09:40→20:45)
[2020-06-07] MEDS: LEVETIRACETAM 500 MG (KEPPRA) TAB PO SCH ×2 (09:40→20:40)
[2020-06-07] MEDS: ARTIFICIAL TEARS OINT (LACRI-LUBE) 3.5 GM TUBE OU SCH ×2 (09:41→20:47)
[2020-06-07] MEDS: MICONAZOLE 2% POWDER (DESENEX AF) 90 GM TOP SCH ×2 (09:41→21:13)
[2020-06-07] MEDS: HYDROcodone/APAP 5 MG/325 MG (LORTAB) TAB PO PRN ×2 (12:09→21:13)
--- NOTE | 2020-06-07 14:17 | Progress Note - Hospitalist ---
Subjective HPI/CC On Admission Date Seen by Provider: Jun 07, 2020 Time Seen by Provider: 11:00 Subjective/Events-last exam She reports feeling while today. She is not short of breath. She is not having fevers. She is eating and drinking. She remains weak. Objective Exam Vital Signs Vital Signs Date Time Temp Pulse Resp B/P (MAP) Pulse Ox O2 Delivery O2 Flow Rate FiO2 06/07/20 13:29 92 Room Air 06/07/20 12:40 36.7 06/07/20 07:28 80 20 120/75 (90) 06/06/20 23:17 2.00 06/04/20 16:49 21 Capillary Refill : Less Than 3 SecondsLess Than 3 Seconds General Appearance: No Apparent Distress, Obese Respiratory: Lungs Clear, Normal Breath Sounds, No Respiratory Distress Cardiovascular: Regular Rate, Rhythm, No Edema, No Murmur Gastrointestinal: Normal Bowel Sounds, Non Tender, Soft Extremity: Normal Inspection, Non Tender, No Pedal Edema Neurologic/Psychiatric: Alert, Oriented x3, No Motor/Sensory Deficits, Normal Mood/Affect Skin: Normal Color, Warm/Dry Results/Procedures Lab Patient resulted labs reviewed. Imaging: Reviewed Imaging Report Assessment/Plan Assessment and Plan Assess & Plan/Chief Complaint Acute respiratory failure/ARDS due to COVID-19 Influenza A infection MRSA pneumonia Swallow eval done and need pureed diet with nectar thick liquids S/p tamiflu s/p 2 units convalescent plasma at [facility] s/p course of Vancomycin for pneumonia Pancytopenia Chronic and follows with Dr Stone Obesity with probable DENNIS Out pt testing is needed hx of brain surgery and seizures Home seizure meds Seizure precautions PRN Ativan Hypokalemia, hypophos, hypomag Replace and trend Critical illness myopathy PT/OT volunteer services manager consulted, appreciate assistance with discharge planning GI and DVT PPX Critical Care Critically Ill Patient Diagnosis/Problems Diagnosis/Problems (1) COVID-19 Status: Acute (2) Critical illness myopathy Status: Acute (3) Morbid obesity Status: Chronic Clinical Quality Measures DVT/VTE Risk/Contraindication: Risk Factor Score Per Nursin RFS Level Per Nursing on Admit: 4+=Very High JENNIFER BOTELLO MD Jun 07, 2020 14:17
--- NOTE | 2020-06-07 14:23 | Physical Therapy Daily Note ---
PT Daily Note-Current Subjective Patient in bed pre tx, agrees to PT, has no complaints of pain. Proper PPE donned before entering room. Appearance Patient BTB post tx with nurse call, phone, tray, all needs met. Mental Status Patient Orientation: Person, Place, Situation Attachments: Oxygen, Carpenter Catheter Transfers SCALE: Activities may be completed with or without assistive devices. 3-Ndytfwoyil-pvkmkrs completes the activity by him/herself with no assistance from a helper. 5-Set-up or Clean-up Assistance-helper sets up or cleans up; patient completes activity. [place] assists only prior to or following the activity. 4-Supervision or Touching Assistance-helper provides verbal cues and/or touching/steadying and/or contact guard assistance as patient completes activity. Assistance may be provided throughout the activity or intermittently. 3-Partial/Moderate Assistance-helper does LESS THAN HALF the effort. [place] lifts, holds or supports trunk or limbs, but provides less than half the effort. 2-Substantial/Maximal Assistance-helper does MORE THAN HALF the effort. [place] lifts or holds trunk or limbs and provides more than half the effort. 5-Srizewawd-bfeewq does ALL the effort. Patient does none of the effort to complete the activity. Or, the assistance of 2 or more helpers is required for the patient to complete the activity. If activity was not attempted, code reason: 7-Patient Refused. 9-Not Applicable-not attempted and the patient did not perform the activity before the current illness, exacerbation or injury. 10-Not Attempted due to Environmental Limitations-(lack of equipment, weather restraints, etc.). 88-Not Attempted due to Medical Conditions or Safety Concerns. Roll Left & Right (QC): 3 Sit to Lying (QC): 3 Lying to Sitting/Side of Bed(Q: 3 Sit to Stand (QC): 3 Patient mod assist for supine <-> sit, patient sat on the side of the bed, scooter forward herself and then stood with mod assist and was able to take several steps sideways toward the head of the bed, she did this twice. Treatments bed mobility, standing, sidestepping Assessment Current Status: Fair Progress patient took steps for the first time since being in the hospital PT [employer] Work Supervisor Goals Longterm Goals PT Longterm Goals Time Frame: Jun 07, 2020 Roll Left & Right (QC): 3 Sit to Lying (QC): 2 Lying-Sitting on Side/Bed(QC): 2 Chair/Iox-ac-Pezvv Xfer(QC): 1 PT Plan Problem List Problem List: Activity Tolerance, Functional Strength, Safety, Balance, Gait, Transfer, Bed Mobility, ROM Treatment/Plan Treatment Plan: Continue Plan of Care Treatment Plan: Bed Mobility, Education, Functional Activity Lisa, Functional Strength, Gait, Safety, Therapeutic Exercise, Transfers Treatment Duration: Jun 07, 2020 Frequency: 6 times per week Estimated Hrs Per Day: .25 hour per day Patient and/or Family Agrees t: Yes Safety Risks/Education Patient Education: Transfer Techniques, Correct Positioning, Safety Issues Teaching Recipient: Patient Teaching Methods: Demonstration, Discussion Response to Teaching: Reinforcement Needed Time/GCodes Time In: 1325 Time Out: 1345 Total Billed Treatment Time: 20 Total Billed Treatment 1 visit FA Brandon' CHIQUI FAULKNER PT Jun 07, 2020 14:23
--- NOTE | 2020-06-07 14:48 | Occupational Ther Daily Note ---
OT Current Status-Daily Note Subjective No pain reported. Appearance Pt. has just finished getting cleaned up by nursing. Agrees to work with therapy. Mental Status/Objective Patient Orientation: Person, Place, Time, Situation ADL-Treatment Therapy Code Descriptions/Definitions Functional [place] Measure: 0=Not Assessed/NA 4=Minimal Assistance 1=Total Assistance 5=Supervision or Setup 2=Maximal Assistance 6=Modified [place] 3=Moderate Assistance 7=Complete IndependenceSCALE: Activities may be completed with or without assistive devices. 0-Vgpwvwrqpo-ocphknp completes the activity by him/herself with no assistance from a helper. 5-Set-up or Clean-up Assistance-helper sets up or cleans up; patient completes activity. [place] assists only prior to or following the activity. 4-Supervision or Touching Assistance-helper provides verbal cues and/or touching/steadying and/or contact guard assistance as patient completes activity. Assistance may be provided throughout the activity or intermittently. 3-Partial/Moderate Assistance-helper does LESS THAN HALF the effort. [place] lifts, holds or supports trunk or limbs, but provides less than half the effort. 2-Substantial/Maximal Assistance-helper does MORE THAN HALF the effort. [place] lifts or holds trunk or limbs and provides more than half the effort. 4-Eenfwrfxk-haimiq does ALL the effort. Patient does none of the effort to complete the activity. Or, the assistance of 2 or more helpers is required for the patient to complete the activity. If activity was not attempted, code reason: 7-Patient Refused. 9-Not Applicable-not attempted and the patient did not perform the activity before the current illness, exacerbation or injury. 10-Not Attempted due to Environmental Limitations-(lack of equipment, weather restraints, etc.). 88-Not Attempted due to Medical Conditions or Safety Concerns. On/Off Footwear: 1 Other Treatment Pt. in bed when therapy enters room. She states, "what do you all want." OT/PT co-treat due to complexity and level of pt's needs. Therapy educates her on purpose of therapy, and she is agreeable. Pt. transfers supine-sit with mod x 1-2. OT facilitated UE placement on walker and ADL skills. PT educated pt on and encouraged transfer training. Required dependent assistance to don shoes an d brush hair. Pt. stood with max x 2 from bed level. Able to take several steps to left with walker and assist. Sat back down and rested. Pt. able to stand a second time and take more steps to left. Sat again. Max x 2 for sit-supine. All needs met. Education OT Patient Education: Correct positioning, Modified ADL techniques, Progress toward Goal/Update tx plan, Purpose of tx/functional activities, Reviewed precautions, Rehab process, Transfer techniques Teaching Recipient: Patient Teaching Methods: Demonstration, Discussion Response to Teaching: Verbalize Understanding, Return Demonstration OT Litigation Docket Manager Goals Mcfp Goals Time Frame: Jun 16, 2020 Eating (QC): 5 Oral Hygiene (QC): 5 Toileting Hygiene (QC): 2 Shower/Bathe Self (QC): 1 Upper Body Dressing (QC): 2 Lower Body Dressing (QC): 1 On/Off Footwear (QC): 1 Additional Goals: 1-Demonstrate ADL Tasks, 3-ImproveStrength/Lisa 1=Demonstrate adherence to instructed precautions during ADL tasks. 2=Patient will verbalize/demonstrate understanding of assistive devices/modifications for ADL. 3=Patient will improve strength/tolerance for activity to enable patient to perform ADL's. OT Education/Plan Problem List/Assessment Assessment: Decreased Activ Tolerance, Dependent Transfers, Impaired Funct Balance, Impaired I ADL's, Impaired Self-Care Skills Discharge Recommendations Plan/Recommendations: Continue POC Therapy Discharge Recommendati: Post Acute OT Treatment Plan/Plan of Care Treatment,Training & Education: Yes Patient would benefit from OT for education, treatment and training to promote independence in ADL's, mobility, safety and/or upper extremity function for ADL's. Plan of Care: ADL Retraining, Functional Mobility, UE Funct Exercise/Act Treatment Duration: Jun 16, 2020 Frequency: 5 times per week Estimated Hrs Per Day: .25 hour per day Agreement: Yes Rehab Potential: Fair Time/GCodes Start Time: 13:25 Stop Time: 13:45 Total Time Billed (hr/min): 20 Billed Treatment Time 1, FA x 20minutes Co-treatment with PT. Please see above note for designated roles. CHEN ROQUE OT Jun 07, 2020 14:48
[2020-06-07 15:31] VITALS: BP 121/66
--- NOTE | 2020-06-07 15:34 | NUR ---
Pt apparently now realizes that she will need considerable assistance to be cared for at home. Daughter Flakita willing to participate in therapies with pt to assess caregiving needs when pt out of isolation. Discussed continued care planning with pt's [facility] case management rn. She is talking with agencies about additional assistance in the home since pt appears to be at least a [address] Uribe also discussed continued care planning with pt and is willing to have [facility] review her evaluations for possible admission if home care plan becomes unrealistic. Will follow and assist.
[2020-06-08] MEDS: ENOXAPARIN 60 MG/0.6 ML (LOVENOX) SYR SC SCH ×2 (00:18→13:27)
[2020-06-08 00:35] VITALS: BP 116/61
[2020-06-08] MEDS: inSUlin ASPART (NovoLOG) 1 UNIT/0.01 ML (CHARGE PER UNIT) SQ SCH ×4 (05:49→20:59)
[2020-06-08] MEDS: RT-ALBUTEROL INHALER HFA (VENTOLIN HFA) 18 GM IH SCH ×4 (07:18→19:33)
[2020-06-08 07:52] VITALS: BP 106/51
[2020-06-08] MEDS: METOCLOPRAMIDE INJ 10 MG/2 ML (REGLAN) IVP SCH (08:26)
[2020-06-08] MEDS: PANTOPRAZOLE 40 MG (PROTONIX) TAB PO SCH (09:21)
[2020-06-08] MEDS: LEVETIRACETAM 500 MG (KEPPRA) TAB PO SCH ×2 (09:21→20:58)
[2020-06-08] MEDS: fluCOnazole (DIFLUCAN) 100 MG TAB PO SCH (09:21)
[2020-06-08] MEDS: PHENYTOIN 100 MG (DILANTIN) CAP PO SCH ×2 (09:21→20:58)
[2020-06-08] MEDS: meTOprolol TARTRATE 25 MG (LOPRESSOR) TABLET PO SCH ×3 (09:21→21:10)
[2020-06-08] MEDS: VENLAFAXINE 50 MG (EFFEXOR) TABLET PO SCH ×2 (09:21→20:58)
[2020-06-08] MEDS: HYDROcodone/APAP 5 MG/325 MG (LORTAB) TAB PO PRN ×2 (09:22→19:59)
[2020-06-08] MEDS: ARTIFICIAL TEARS OINT (LACRI-LUBE) 3.5 GM TUBE OU SCH ×2 (09:22→21:04)
[2020-06-08] MEDS: MICONAZOLE 2% POWDER (DESENEX AF) 90 GM TOP SCH ×2 (09:22→21:04)
[2020-06-08 10:02] LABS: BASOPHILS % (AUTO) 1 % (0-10); HEMOGLOBIN 10.3 g/dL (11.5-16.0); MEAN CORPUSCULAR VOLUME 101 fL (80-99); MONOCYTES # (AUTO) 0.2 10^3/uL (0.0-1.0)
[2020-06-08 10:07] LABS: EOSINOPHILS # (AUTO) 0.1 10^3/uL (0.0-0.3); EOSINOPHILS % (AUTO) 5 % (0-10); HEMATOCRIT 33 % (35-52); LYMPHOCYTES # (AUTO) 0.6 10^3/uL (1.0-4.0); LYMPHOCYTES % (AUTO) 30 % (12-44); MEAN CORPUSCULAR HEMOGLOBIN 31 pg (25-34); MEAN CORPUSCULAR HGB CONC 31 g/dL (32-36); MEAN PLATELET VOLUME 10.3 fL (9.0-12.2); MONOCYTES % (AUTO) 8 % (0-12); NEUTROPHILS # (AUTO) 1.1 10^3/uL (1.8-7.8); NEUTROPHILS % (AUTO) 57 % (42-75); PLATELET COUNT 78 10^3/uL (130-400)
[2020-06-08 10:32] LABS: BUN/CREATININE RATIO 4; CALCIUM 7.9 MG/DL (8.5-10.1); CARBON DIOXIDE 30 MMOL/L (21-32); CHLORIDE 104 MMOL/L (98-107); CREATININE SERUM 0.53 MG/DL (0.60-1.30); GFR ESTIMATED > 60; GLUCOSE 139 MG/DL (70-105); MAGNESIUM 1.7 MG/DL (1.6-2.4); POTASSIUM 3.2 MMOL/L (3.6-5.0); SODIUM 142 MMOL/L (135-145)
--- NOTE | 2020-06-08 11:45 | NUR ---
IRF Evaluation Determination: Accepted Chart review complete and findings discussed with Dr. Miguel - patient accepted. Patient's primary insurance provider is [facility]; therefore, prior authorization will need to be obtained. Due to this insurance provider historically denying requests will discuss possibility of [id number] with Dr. Uribe, as well as review 'fast appeal' process with patient. Clinical information submitted to [facility] for review. Will continue to follow. Thank you for this referral.
--- NOTE | 2020-06-08 11:49 | Physical Therapy Daily Note ---
PT Daily Note-Current Subjective Patient is very agreeable to participate with therapy. Mental Status Patient Orientation: Normal For Age Attachments: Carpenter Catheter Transfers SCALE: Activities may be completed with or without assistive devices. 2-Xjwzzgoafm-quhdhry completes the activity by him/herself with no assistance from a helper. 5-Set-up or Clean-up Assistance-helper sets up or cleans up; patient completes activity. [place] assists only prior to or following the activity. 4-Supervision or Touching Assistance-helper provides verbal cues and/or touching/steadying and/or contact guard assistance as patient completes activity. Assistance may be provided throughout the activity or intermittently. 3-Partial/Moderate Assistance-helper does LESS THAN HALF the effort. [place] lifts, holds or supports trunk or limbs, but provides less than half the effort. 2-Substantial/Maximal Assistance-helper does MORE THAN HALF the effort. [place] lifts or holds trunk or limbs and provides more than half the effort. 1-Xlzehduum-obgndc does ALL the effort. Patient does none of the effort to complete the activity. Or, the assistance of 2 or more helpers is required for the patient to complete the activity. If activity was not attempted, code reason: 7-Patient Refused. 9-Not Applicable-not attempted and the patient did not perform the activity before the current illness, exacerbation or injury. 10-Not Attempted due to Environmental Limitations-(lack of equipment, weather restraints, etc.). 88-Not Attempted due to Medical Conditions or Safety Concerns. Lying to Sitting/Side of Bed(Q: 2 Sit to Stand (QC): 2 (x 2) Chair/Fto-oc-Wpigi Xfer(QC): 2 (x 2) max assist of 2 with sit to stand to FWW and with SPT Gait Training Does the Patient Walk?: No and Walking Goal IS indicated Gait Assistive Device: FWW Assessment Patient up in recliner and transferred to non covid room due to out of i solation. Plan family training at 1300 on this date. PT Ortho Tech Goals Ortho Tech Goals PT Chcf Goals Time Frame: Jun 12, 2020 Roll Left & Right (QC): 3 Sit to Lying (QC): 2 Lying-Sitting on Side/Bed(QC): 2 Chair/Hrh-su-Yjlsk Xfer(QC): 1 PT Plan Treatment/Plan Treatment Plan: Continue Plan of Care Treatment Plan: Bed Mobility, Education, Functional Activity Lisa, Functional Strength, Gait, Safety, Therapeutic Exercise, Transfers Treatment Duration: Jun 12, 2020 Frequency: 6 times per week Estimated Hrs Per Day: .25 hour per day Patient and/or Family Agrees t: Yes Time/GCodes Time In: 1040 Time Out: 1054 Total Billed Treatment Time: 14 Total Billed Treatment 1 visit FA 14 min ABRAHAN SORENSON PT Jun 08, 2020 11:49
--- NOTE | 2020-06-08 12:21 | Progress Note - Hospitalist ---
Subjective HPI/CC On Admission Date Seen by Provider: Jun 08, 2020 Time Seen by Provider: 10:00 Subjective/Events-last exam She is feeling well. She has been working in physical therapy. She was able to take some steps yesterday. She seems very motivated to improve her strength. She wants to eventually get back home. She has no complaints or concerns. Objective Exam Vital Signs Vital Signs Date Time Temp Pulse Resp B/P (MAP) Pulse Ox O2 Delivery O2 Flow Rate FiO2 06/08/20 09:00 Room Air 06/08/20 07:52 36.0 75 20 106/51 (69) 91 06/06/20 23:17 2.00 06/04/20 16:49 21 Capillary Refill : Less Than 3 SecondsLess Than 3 Seconds General Appearance: No Apparent Distress, Obese Respiratory: Lungs Clear, Normal Breath Sounds, No Respiratory Distress Cardiovascular: Regular Rate, Rhythm, No Edema, No Murmur Gastrointestinal: Normal Bowel Sounds, Non Tender, Soft Extremity: Normal Inspection, Non Tender, No Pedal Edema Neurologic/Psychiatric: Alert, Oriented x3, Normal Mood/Affect, Motor Weakness Skin: Normal Color, Warm/Dry Results/Procedures Lab Laboratory Tests 06/08/20 09:59 Patient resulted labs reviewed. Imaging: Reviewed Imaging Report Assessment/Plan Assessment and Plan Assess & Plan/Chief Complaint Acute respiratory failure/ARDS due to COVID-19 Influenza A infection MRSA pneumonia Swallow eval done and need pureed diet with nectar thick liquids S/p tamiflu s/p 2 units convalescent plasma at [facility] s/p course of Vancomycin for pneumonia Transfer out of COVID isolation Pancytopenia Chronic, stable, follows with Dr Stone Obesity with probable DENNIS Out pt testing is needed hx of brain surgery and seizures Home seizure meds Seizure precautions PRN Ativan Hypokalemia, hypophos, hypomag Replace and trend Critical illness myopathy PT/OT IRU evaluation business services specialist sales consulted, appreciate assistance with discharge planning GI and DVT PPX Critical Care Critically Ill Patient Diagnosis/Problems Diagnosis/Problems (1) COVID-19 Status: Acute (2) Critical illness myopathy Status: Acute (3) Morbid obesity Status: Chronic Clinical Quality Measures DVT/VTE Risk/Contraindication: Risk Factor Score Per Nursin RFS Level Per Nursing on Admit: 4+=Very High JENNIFER BOTELLO MD Jun 08, 2020 12:21
[2020-06-08] MEDS: MAGNESIUM 1 GM/100 ML IVPB 100 ML IV SCH (12:30)
[2020-06-08] MEDS: POTASSIUM CL 10MEQ/50ML IVPB 50 ML IV SCH (12:30)
[2020-06-08] MEDS: KCL 20 MEQ TAB (K-DUR) PO SCH (12:33)
[2020-06-08] MEDS ORDERED: KCL 20 MEQ TAB (K-DUR) PO NR ×2 (12:45→15:00)
--- NOTE | 2020-06-08 13:25 | NUR ---
[facility] reviewed pt's medical reports and felt pt's care needs surpassed what they could provide. Goal remains for pt to be able to return home with continued in home care services. Pt's daughter and granddaughter here today working with pt and therapies.Pt has been accepted by Acute Rehab pending insurance approval and pt very willing to participate on the Acute Rehab Unit if approved.
--- NOTE | 2020-06-08 14:46 | Physical Therapy Daily Note ---
PT Daily Note-Current Subjective Daughter and granddaughter present for family training. [place] with OT. Mental Status Patient Orientation: Normal For Age Transfers SCALE: Activities may be completed with or without assistive devices. 1-Tldvnlumfg-vkmzeus completes the activity by him/herself with no assistance from a helper. 5-Set-up or Clean-up Assistance-helper sets up or cleans up; patient completes activity. [place] assists only prior to or following the activity. 4-Supervision or Touching Assistance-helper provides verbal cues and/or touching/steadying and/or contact guard assistance as patient completes activity. Assistance may be provided throughout the activity or intermittently. 3-Partial/Moderate Assistance-helper does LESS THAN HALF the effort. [place] lifts, holds or supports trunk or limbs, but provides less than half the effort. 2-Substantial/Maximal Assistance-helper does MORE THAN HALF the effort. [place] lifts or holds trunk or limbs and provides more than half the effort. 9-Kyufsdeox-lhjnmc does ALL the effort. Patient does none of the effort to complete the activity. Or, the assistance of 2 or more helpers is required for the patient to complete the activity. If activity was not attempted, code reason: 7-Patient Refused. 9-Not Applicable-not attempted and the patient did not perform the activity before the current illness, exacerbation or injury. 10-Not Attempted due to Environmental Limitations-(lack of equipment, weather restraints, etc.). 88-Not Attempted due to Medical Conditions or Safety Concerns. Sit to Lying (QC): 2 Sit to Stand (QC): 2 (x 2 by family members with supervision of PT and OT) Chair/Qmm-wx-Ynmlp Xfer(QC): 2 (x 2 by family assist) Family assist with all mobility to mimic home environment Treatments PT/OT for family training. PT instructed family to perform activity as they would at home and both agree. Granddaughter stood in front of patient and blocked her left foot to prevent sliding and locked hands with patient while the daughter assisted behind with use of gait belt. Patient then took steps without FWW and with assist of family to transfer recliner to bed. Family is able to assist patient, as in the home environment, without difficulty. Patient actually perform tasks better for family vs. therapy. They have a w/c, FWW and commode at home from prior use. Assessment Current Status: Excellent Progress PT Mcfp Goals Mcfp Goals PT Spooling Machine Operator Goals Time Frame: Jun 12, 2020 Roll Left & Right (QC): 3 Sit to Lying (QC): 2 Lying-Sitting on Side/Bed(QC): 2 Chair/Loz-vp-Fjbgp Xfer(QC): 1 PT Plan Treatment/Plan Treatment Plan: Continue Plan of Care Treatment Plan: Bed Mobility, Education, Functional Activity Lisa, Functional Strength, Gait, Safety, Therapeutic Exercise, Transfers Treatment Duration: Jun 12, 2020 Frequency: 6 times per week Estimated Hrs Per Day: .25 hour per day Patient and/or Family Agrees t: Yes Discharge Recommendations Therapy Discharge Recommendati: Home & Family Time/GCodes Time In: 1300 Time Out: 1335 Total Billed Treatment Time: 35 Total Billed Treatment 1 visit FA x 2 35 min ABRAHAN SORENSON PT Jun 08, 2020 14:46
--- NOTE | 2020-06-08 15:24 | Occupational Ther Daily Note ---
OT Current Status-Daily Note Subjective No pain reported. Appearance Pt. is up in chair. Agrees to work with therapy. Mental Status/Objective Patient Orientation: Person, Place, Time, Situation Attachments: Carpenter Catheter ADL-Treatment Therapy Code Descriptions/Definitions Functional [place] Measure: 0=Not Assessed/NA 4=Minimal Assistance 1=Total Assistance 5=Supervision or Setup 2=Maximal Assistance 6=Modified [place] 3=Moderate Assistance 7=Complete IndependenceSCALE: Activities may be completed with or without assistive devices. 9-Qkjmmcgact-mxcpyrx completes the activity by him/herself with no assistance from a helper. 5-Set-up or Clean-up Assistance-helper sets up or cleans up; patient completes activity. [place] assists only prior to or following the activity. 4-Supervision or Touching Assistance-helper provides verbal cues and/or touching/steadying and/or contact guard assistance as patient completes activity. Assistance may be provided throughout the activity or intermittently. 3-Partial/Moderate Assistance-helper does LESS THAN HALF the effort. [place] lifts, holds or supports trunk or limbs, but provides less than half the effort. 2-Substantial/Maximal Assistance-helper does MORE THAN HALF the effort. [place] lifts or holds trunk or limbs and provides more than half the effort. 6-Hgpjpwguy-tidlum does ALL the effort. Patient does none of the effort to complete the activity. Or, the assistance of 2 or more helpers is required for the patient to complete the activity. If activity was not attempted, code reason: 7-Patient Refused. 9-Not Applicable-not attempted and the patient did not perform the activity before the current illness, exacerbation or injury. 10-Not Attempted due to Environmental Limitations-(lack of equipment, weather restraints, etc.). 88-Not Attempted due to Medical Conditions or Safety Concerns. Other Treatment Pt. would like to discharge home, and so family was allowed in room for family training. This was to determine if pt. and family could manage at home. OT/PT both present and assisted as skilled of both services were needed due to fatigue and physical needs. PT addressed transfer training while OT facilitated ADL education. Pt's daughter and granddaughter came, and were able to demonstrate ability to assist pt. from chair to bed. They demonstrated the system that they use at home, which is that the granddaughter assists from the front, and the daughter from behind. Both women, as well as the pt. report that pt is almost or close to baseline as far as her transfers go. OT talked to them regarding taking care of pt. from an ADL status, and they both report that they were taking care of her previous to her getting sick and being hospitalized. They both seem very comfortable and hands on with her care. OT/PT both agree that pt. can discharge home with full family support from a functional standpoint, when pt. is medically ready. PT communicated this to psychologist social. All needs were met in bed. Education OT Patient Education: Correct positioning, Modified ADL techniques, Progress toward Goal/Update tx plan, Purpose of tx/functional activities, Reviewed preca utions, Rehab process, Transfer techniques Teaching Recipient: Patient, Family Teaching Methods: Demonstration, Discussion Response to Teaching: Verbalize Understanding, Return Demonstration OT Longterm Goals Longterm Goals Time Frame: Jun 16, 2020 Eating (QC): 5 Oral Hygiene (QC): 5 Toileting Hygiene (QC): 2 Shower/Bathe Self (QC): 1 Upper Body Dressing (QC): 2 Lower Body Dressing (QC): 1 On/Off Footwear (QC): 1 Additional Goals: 1-Demonstrate ADL Tasks, 3-ImproveStrength/Lisa 1=Demonstrate adherence to instructed precautions during ADL tasks. 2=Patient will verbalize/demonstrate understanding of assistive devices/modifications for ADL. 3=Patient will improve strength/tolerance for activity to enable patient to perform ADL's. OT Education/Plan Problem List/Assessment Assessment: Decreased Activ Tolerance, Dependent Transfers, Impaired Bed Mobility, Impaired Funct Balance, Impaired I ADL's, Impaired Self-Care Skills Discharge Recommendations Plan/Recommendations: Continue POC Therapy Discharge Recommendati: Home & Family Treatment Plan/Plan of Care Treatment,Training & Education: Yes Patient would benefit from OT for education, treatment and training to promote independence in ADL's, mobility, safety and/or upper extremity function for ADL's. Plan of Care: ADL Retraining, Functional Mobility, UE Funct Exercise/Act Treatment Duration: Jun 16, 2020 Frequency: 5 times per week Estimated Hrs Per Day: .25 hour per day Agreement: Yes Rehab Potential: Fair Time/GCodes Start Time: 13:00 Stop Time: 13:35 Total Time Billed (hr/min): 35 Billed Treatment Time 1, FA x 35minutes Co-treatment performed with PT. Please see above note for designated roles. CHEN ROQUE OT Jun 08, 2020 15:24
[2020-06-08 16:51] VITALS: BP_SYST 106; BP_SYST 123; BP_DIAS 51; BP_DIAS 60
[2020-06-09] MEDS: ENOXAPARIN 60 MG/0.6 ML (LOVENOX) SYR SC SCH ×2 (00:09→13:17)
[2020-06-09 00:20] VITALS: BP 117/61
[2020-06-09 05:39] LABS: BUN/CREATININE RATIO 8; CALCIUM 7.7 MG/DL (8.5-10.1); CARBON DIOXIDE 27 MMOL/L (21-32); CHLORIDE 103 MMOL/L (98-107); CREATININE SERUM 0.51 MG/DL (0.60-1.30); GFR ESTIMATED > 60; GLUCOSE 136 MG/DL (70-105); MAGNESIUM 1.5 MG/DL (1.6-2.4); SODIUM 140 MMOL/L (135-145)
[2020-06-09] MEDS: MAGNESIUM 1 GM/100 ML IVPB 100 ML IV SCH ×3 (06:00→10:12)
[2020-06-09] MEDS: KCL 20 MEQ TAB (K-DUR) PO SCH ×2 (06:00→07:36)
[2020-06-09] MEDS: POTASSIUM CL 10MEQ/50ML IVPB 50 ML IV SCH (06:00)
[2020-06-09] MEDS: inSUlin ASPART (NovoLOG) 1 UNIT/0.01 ML (CHARGE PER UNIT) SQ SCH ×4 (06:04→16:36)
[2020-06-09] MEDS: RT-ALBUTEROL INHALER HFA (VENTOLIN HFA) 18 GM IH SCH ×3 (07:49→14:42)
[2020-06-09 08:00] VITALS: BP 129/68
[2020-06-09] MEDS: ARTIFICIAL TEARS OINT (LACRI-LUBE) 3.5 GM TUBE OU SCH (09:00)
[2020-06-09] MEDS: VENLAFAXINE 50 MG (EFFEXOR) TABLET PO SCH (10:00)
[2020-06-09] MEDS: METOCLOPRAMIDE INJ 10 MG/2 ML (REGLAN) IVP SCH (10:00)
[2020-06-09] MEDS: PHENYTOIN 100 MG (DILANTIN) CAP PO SCH (10:00)
[2020-06-09] MEDS: fluCOnazole (DIFLUCAN) 100 MG TAB PO SCH (10:00)
[2020-06-09] MEDS: meTOprolol TARTRATE 25 MG (LOPRESSOR) TABLET PO SCH (10:00)
[2020-06-09] MEDS: PANTOPRAZOLE 40 MG (PROTONIX) TAB PO SCH (10:00)
[2020-06-09] MEDS: LEVETIRACETAM 500 MG (KEPPRA) TAB PO SCH (10:00)
[2020-06-09] MEDS: HYDROcodone/APAP 5 MG/325 MG (LORTAB) TAB PO PRN (10:12)
[2020-06-09] MEDS: MICONAZOLE 2% POWDER (DESENEX AF) 90 GM TOP SCH (10:14)
--- NOTE | 2020-06-09 12:30 | NUR ---
[facility] Met with patient to discuss rehabilitation program and pending insurance authorization. Patient indicates she feels prepared to return home, as she has multiple supportive family members and friends associated with the local fire and police departments. Patient questioned in the event her insurance provider approves admission to ARU, would she choose to admit. Patient replied by stating she would still choose to return home. In the event the patient returns home and fails, she does have the option of being re-evaluated for inpatient rehab. Patient notified of this. SW notified of this information.
--- NOTE | 2020-06-09 12:48 | NUR ---
Pt has Acute Rehab approval pending with her insurance and awaiting their decision. Made multiple calls to pt's casemanager for possible approval of DME equipment of Bariatric commode and walker. She states that her walker at home is standard and doesn't fit and pt thinks a bedside commode would be helpful until she can walk to her bathroom will follow
[2020-06-09 13:45] VITALS: BP 129/68
--- NOTE | 2020-06-09 14:02 | Physical Therapy Daily Note ---
PT Daily Note-Current Subjective Patient in bed pre tx, agrees to PT, has no complaints of pain. Appearance Patient in recliner post tx with nurse call, phone, tray, all needs met. Mental Status Patient Orientation: Normal For Age Attachments: Carpenter Catheter, IV Transfers SCALE: Activities may be completed with or without assistive devices. 4-Yjtrkixnao-vwstnzx completes the activity by him/herself with no assistance from a helper. 5-Set-up or Clean-up Assistance-helper sets up or cleans up; patient completes activity. [place] assists only prior to or following the activity. 4-Supervision or Touching Assistance-helper provides verbal cues and/or touching/steadying and/or contact guard assistance as patient completes activity. Assistance may be provided throughout the activity or intermittently. 3-Partial/Moderate Assistance-helper does LESS THAN HALF the effort. [place] lifts, holds or supports trunk or limbs, but provides less than half the effort. 2-Substantial/Maximal Assistance-helper does MORE THAN HALF the effort. [place] lifts or holds trunk or limbs and provides more than half the effort. 4-Dtngkqbty-ciaqkp does ALL the effort. Patient does none of the effort to complete the activity. Or, the assistance of 2 or more helpers is required for the patient to complete the activity. If activity was not attempted, code reason: 7-Patient Refused. 9-Not Applicable-not attempted and the patient did not perform the activity before the current illness, exacerbation or injury. 10-Not Attempted due to Environmental Limitations-(lack of equipment, weather restraints, etc.). 88-Not Attempted due to Medical Conditions or Safety Concerns. Roll Left & Right (QC): 4 Lying to Sitting/Side of Bed(Q: 4 Sit to Stand (QC): 3 Chair/Bry-jr-Oeetx Xfer(QC): 3 Patient was able to sit to the side of the bed with SBA but needs mod assist to stand and min to take a few steps to the recliner. Patient insists on doing the transfer the way she has been doing it at home which is having a person in front of her who helps pull her forward and then she uses the person's hands to bear weight with her arms and ambulates a few steps. Patient insists on not using the walker. Exercises Seated Therapy Exercises: Ankle pumps, Long arc quads Seated Reps: 10 Treatments bed mobility and transfers, ambulation, LE exercise Assessment Current Status: Fair Progress improving general mobility PT Continuity Reader Goals Intermediate Goals PT Intermediate Goals Time Frame: Jun 12, 2020 Roll Left & Right (QC): 3 Sit to Lying (QC): 2 Lying-Sitting on Side/Bed(QC): 2 Chair/Mfv-yx-Ujkdv Xfer(QC): 1 PT Plan Problem List Problem List: Activity Tolerance, Functional Strength, Safety, Balance, Gait, Transfer, Bed Mobility, ROM Treatment/Plan Treatment Plan: Continue Plan of Care Treatment Plan: Bed Mobility, Education, Functional Activity Lisa, Functional Strength, Gait, Safety, Therapeutic Exercise, Transfers Treatment Duration: Jun 12, 2020 Frequency: 6 times per week Estimated Hrs Per Day: .25 hour per day Patient and/or Family Agrees t: Yes Safety Risks/Education Patient Education: Gait Training, Transfer Techniques, Correct Positioning, Safety Issues Teaching Recipient: Patient Teaching Methods: Demonstration, Discussion Response to Teaching: Reinforcement Needed Time/GCodes Time In: 1315 Time Out: 1325 Total Billed Treatment Time: 10 Total Billed Treatment 1 visit FA CHIQUI HERNANDEZ PT Jun 09, 2020 14:02
--- NOTE | 2020-06-09 14:22 | Occupational Ther Daily Note ---
OT Current Status-Daily Note Subjective Pt in bed, agreeable to OT Tx. Pt indicates she is hopeful to go home today or tomorrow. ADL-Treatment Therapy Code Descriptions/Definitions Functional [place] Measure: 0=Not Assessed/NA 4=Minimal Assistance 1=Total Assistance 5=Supervision or Setup 2=Maximal Assistance 6=Modified [place] 3=Moderate Assistance 7=Complete IndependenceSCALE: Activities may be completed with or without assistive devices. 2-Xkbvqxafpd-djuuefb completes the activity by him/herself with no assistance from a helper. 5-Set-up or Clean-up Assistance-helper sets up or cleans up; patient completes activity. [place] assists only prior to or following the activity. 4-Supervision or Touching Assistance-helper provides verbal cues and/or touching/steadying and/or contact guard assistance as patient completes activity. Assistance may be provided throughout the activity or intermittently. 3-Partial/Moderate Assistance-helper does LESS THAN HALF the effort. [place] l ifts, holds or supports trunk or limbs, but provides less than half the effort. 2-Substantial/Maximal Assistance-helper does MORE THAN HALF the effort. [place] lifts or holds trunk or limbs and provides more than half the effort. 2-Hjaukmgrr-zkfrdd does ALL the effort. Patient does none of the effort to complete the activity. Or, the assistance of 2 or more helpers is required for t he patient to complete the activity. If activity was not attempted, code reason: 7-Patient Refused. 9-Not Applicable-not attempted and the patient did not perform the activity before the current illness, exacerbation or injury. 10-Not Attempted due to Environmental Limitations-(lack of equipment, weather restraints, etc.). 88-Not Attempted due to Medical Conditions or Safety Concerns. Eating (QC): 6 (Pt reports being independent with breakfast, stating she was able to cut food, use utensils, and bring food to mouth without difficulty.) Other Treatment Pt laying in bed, transferred supine to sit EOB with SBA. Mod A sit to stand, and min A to take a few steps into recliner. Pt declines using a walker during the transfer, insisting on completing transfer how she does it at home, with one person in front to help pull her forward and block L foot, and 1 person at her backside. Once at recliner, pt able to use hair brush to comb her hair, requiring min A due to tangles in the back that pt could not see. Pt talked about how thankful she is for the care she has received here and how excited she is to return home today or tomorrow. Pt indicates she does not want to transfer to the rehab unit, as she feels like her family will be able to take care of her at home. Post OT tx, pt seated in chair, call light in reach and all needs met. Education OT Patient Education: Correct positioning, Energy conservation, Modified ADL techniques, Progress toward Goal/Update tx plan, Purpose of tx/functional activities Teaching Recipient: Patient Teaching Methods: Discussion Response to Teaching: Verbalize Understanding OT Group Home Goals General Duty Nurse Goals Time Frame: Jun 16, 2020 Eating (QC): 5 Oral Hygiene (QC): 5 Toileting Hygiene (QC): 2 Shower/Bathe Self (QC): 1 Upper Body Dressing (QC): 2 Lower Body Dressing (QC): 1 On/Off Footwear (QC): 1 Additional Goals: 1-Demonstrate ADL Tasks, 3-ImproveStrength/Lisa 1=Demonstrate adherence to instructed precautions during ADL tasks. 2=Patient will verbalize/demonstrate understanding of assistive devices/modifi cations for ADL. 3=Patient will improve strength/tolerance for activity to enable patient to perform ADL's. OT Education/Plan Problem List/Assessment Assessment: Decreased Activ Tolerance, Decreased UE Strength, Impaired Funct Balance, Impaired I ADL's, Impaired Self-Care Skills Discharge Recommendations Plan/Recommendations: Continue POC Treatment Plan/Plan of Care Patient would benefit from OT for education, treatment and training to promote independence in ADL's, mobility, safety and/or upper extremity function for ADL's. Plan of Care: ADL Retraining, Functional Mobility, UE Funct Exercise/Act Treatment Duration: Jun 16, 2020 Frequency: 5 times per week Estimated Hrs Per Day: .25 hour per day Agreement: Yes Rehab Potential: Fair Time/GCodes Start Time: 13:17 Stop Time: 13:35 Total Time Billed (hr/min): 18 Billed Treatment Time 1, ADL DEN DIAZ OT Jun 09, 2020 14:21
--- NOTE | 2020-06-09 14:50 | Discharge Summary ---
Discharge Summary Reconcile Patient Problems Problems Reviewed?: Yes Instructions for Patient Via [employer], Assessment/Instructions Take medications as prescribed. Participate in therapies. Follow up with PCP in about a week. Return with worsening weakness or if you feel like you are getting worse. Physician to follow Patient: Connor Discharge Diet for Home: No Restrictions Hospital Course Date of Admission: May 16, 2020 at 11:36 Admission Diagnosis: Acute respiratory failure due to COVID-19 Family Physician/Provider: Date of Discharge: 06/09/20 Discharge Diagnosis: Acute respiratory failure and ARDS due to COVID-19, MRSA pneumonia, [facility] Hospital Course: Chris Betts is a 55-year-old female with past medical history of p ancytopenia, seizures, morbid obesity, who was admitted with acute respiratory failure due to COVID-19. She had a prolonged hospitalization with a complicated course. She required endotracheal intubation. She was treated with Decadron, Remdesivir, and convalescent plasma for COVID. She underwent proning and developed some pressure ulcers from this. She developed an MRSA pneumonia and was treated with a course of IV vancomycin. Her course was also complicated by electrolyte abnormalities which were replaced as needed. Due to her prolonged hospitalization, she developed a critical illness myopathy. She worked with physical therapy while in the hospital and made good improvement. Her family was able to come in and worked with physical therapy and she was deemed safe to go home with family support. She was discharged home in stable condition. She did not require any supplemental oxygen at the time of discharge. Labs and Pending Lab Test: Laboratory Tests 06/08/20 16:53: Glucometer 126H 06/08/20 20:48: Glucometer 126H 06/09/20 04:40: Sodium Level 140, Potassium Level 4.0, Chloride Level 103, Carbon Dioxide Level 27, Anion Gap 10, Blood Urea Nitrogen 4L, Creatinine 0.51L, Estimat Glomerular Filtration Rate > 60, BUN/Creatinine Ratio 8, Glucose Level 136H, Calcium Level 7.7L, Magnesium Level 1.5L 06/09/20 10:59: Glucometer 166H Microbiology 05/28/20 Gram Stain - Final, Complete 05/28/20 Sputum Culture - Final, Complete Staphylococcus aureus 05/26/20 Urine Culture - Final, Complete YEAST 05/16/20 Blood Culture - Final, Complete No growth Home Meds Active Reported Hydrocodone-Acetamin 5-325 mg (Hydrocodone/Acetaminophen) 1 Each Tablet 1-2 Ea PO Q8H PRN Trazodone HCl 100 Mg Tablet 150 Mg PO HS TAKES 1 & 1/2 (100MG) TABS Farxiga (Dapagliflozin Propanediol) 10 Mg Tablet 10 Mg PO DAILY Venlafaxine HCl 100 Mg Tablet 100 Mg PO BID Levetiracetam 500 Mg Tablet 1,500 Mg PO BID TAKES 3 (500MG) TABS TWICE DAILY Metformin HCl 1,000 Mg Tablet 1,000 Mg PO BID Pravastatin Sodium 20 Mg Tablet 20 Mg PO DAILY Triamcinolone Acetonide 0.1% Cream (Triamcinolone Acet) 15 Gm Cr 1 Applic TOP PRN PRN Metoprolol Tartrate 50 Mg Tablet 50 Mg PO BID Phenytoin Sodium Extended 100 Mg Capsule 100 Mg PO HS Phenytoin Sodium Extended 100 Mg Capsule 200 Mg PO DAILY TAKES 2 (100MG) CAPS Buspirone HCl 10 Mg Tablet 10 Mg PO TID PRN Lisinopril 5 Mg Tablet 5 Mg PO DAILY Consulations Pulmonology Patient Allergies: Coded Allergies: Penicillins (Verified Allergy, Severe, HIVES, 04/21/13) tramadol HCl (Verified Allergy, Severe, HIVES, 04/21/13) hives and sweats ondansetron HCl (Verified Adverse Reaction, Intermediate, RASH, 04/21/13) Weight (Pounds): 373 Weight (Ounces): 6.0 Home Health Need/Face to Face Date of Face to Face: Jun 09, 2020 Clinical Findings: Generalized weakness and fatigue, Instability, Muscle weakness, Unsteady gait I have seen Pt wmfk-ve-vkvj: Yes Discharged To: Home Diagnosis/Conditions: COVID-19 Critical illness myopathy Problems/Diagnosis/Condition: (1) COVID-19 (2) Critical illness myopathy Patient is Homebound due to: Tomer fall risk due to instabilty, Muscle weakness Homebound Status Due to the above stated illness, injury or surgical procedure (medical condition or diagnosis) and associated clinical findings, the patient is homebou nd because of his/her inability to leave home except with aid of a supportive device and/or person AND leaving the home requires a considerable and taxing effort or is medically contraindicated. Pt req the following assistanc: Aid of another person, Walker Home Health Nursing Orders Home Health Services Order: Nursing Services, Dough Cutting Machine Operator-Evaluate & Treat, Physical Therapy-Evaluate & Treat Therapy Orders Therapy Orders: OT (must have SN or PT order), Physical Therapy Therapy Specific Orders: Eval assistive deivces, Gait training, Increase strength/endurance Certify Stmt I certify that this patient is under my care and that I, a nurse practitioner or a physician; a dam tender assistant working with me, had a face to face encounter that - meets the physician face to face encounter requirements with this patient as dated. Discharge Physical Exam General: Alert, Oriented X3, Cooperative, No Acute Distress HEENT: Atraumatic, PERRLA, EOMI, Mucous Memb Moist/[place] Lungs: Clear to Auscultation, Normal Air Movement Heart: Regular Rate, Normal S1, Normal S2, No Murmurs Abdomen: Normal Bowel Sounds, Soft, No Tenderness Extremities: No Edema, No Tenderness/Swelling Skin: Other (facial pressure ulcers) Neuro: Other (motor weakness) Psych/Mental Status: Mental Status NL, Mood NL JENNIFER BOTELLO MD Jun 09, 2020 14:49
--- NOTE | 2020-06-09 15:42 | Speech Therapy Daily Note ---
Speech Daily Progress Note Subjective Date Seen by Provider: Jun 09, 2020 Time Seen by Provider: 00:10 Patient eating breakfast when I arrived for therapy. Patient is doing well with current diet level. Objective Patient is utilizing compensatory strategies as trained without s/s of aspiration. Assessment Assessment Current Status: Good Progress Speech Short Term Goals Short Term Goals Short Term Goals 1) Patient will tolerate least restrictive diet level without s/s of aspiration at 90%. 2) Patient/caregiver will utilize compensatory strategies as trained at 90% or greater with minimal cues. Speech Detention Goals Eye Care Professional Goals Patient will maintain adequate nutrition/hydration via safe effective swallow function. Speech-Plan Patient/Family Goals Patient/Family Goals: Patient states she hopes to be discharged soon. Treatment Plan Speech Therapy Treatment Plan: Continue Plan of Care Treatment Duration: Jun 11, 2020 Frequency: 4 times per week Estimated Hrs Per Day: .25 hour per day Rehab Potential: Fair Barriers to Learning: Patient's recent illness Pt/Family Agrees to Plan: Yes Safety Risks/Education Teaching Recipient: Patient Teaching Methods: Demonstration, Discussion Response to Teaching: Verbalize Understanding, Return Demonstration Education Topics Provided: Continued safety with oral intake upon her return home Time Speech Therapy Time In: 08:20 Speech Therapy Time Out: 08:30 Total Billed Time: 10 Billed Treatment Time 1, TENISHA Cruz Jun 09, 2020 15:42
--- NOTE | 2020-06-09 16:24 | NUR ---
Received information from November, [facility] Physiotherapist that pt's insurance denied coverage for pt's admission to Acute Rehab Unit Pt wanting to be discharged home today She is agreeable to Home Health Services and chose [facility] as she has received their services previously. Also faxed physician scripts to [facility] for her to obtain approval for bariatric commode and Front Wheel Walker which was her DME choice and they did have the available equipment. Pt's family worked with therapy staff twice and therapy staff felt that family was capable of resuming pt. care. Pt very appreciative of the care and the fact that she was able to return home Several attempts were made to contact pt's [employer]ung digital content marketing manager and left messages but will follow-up with her so she is aware of our continued care plan.
[2020-06-09 16:48] VITALS: BP 129/68
--- NOTE | 2020-06-10 15:16 | NUR ---
Physician ordered a bariatric walker and commode for pt upon discharge as pt weighs 373 lbs and due to her prolonged hospitalization with complications she developed critical illness myopathy with no accepting facility to provide her continued care. Her family was agreeable to provide care with the assistance of Home Health Care and in-home care supports. Since she was a 2 person transfer and only taking a couple of steps at discharge she required the bariatric equipment as was room confined and incapable of using regular toilet facilities
== END 2020-06-09 17:10 | disposition home health service (06) | DRG 207 ==
LOC: ICU 11:36 → 4TH 06-01 09:40
PROVIDERS: ADMIT Internal Medicine; ATTEND Internal Medicine
PROC: XW033E5 Introduction of Remdesivir Anti-infective into Peripheral Vein, Percutaneous Approach, New Technology Group 5 (ICD-10-PCS; 2020-05-16)
PROC: 5A1955Z Respiratory Ventilation, Greater than 96 Consecutive Hours (ICD-10-PCS; principal; 2020-05-17)
PROC: 0BH17EZ Insertion of Endotracheal Airway into Trachea, Via Natural or Artificial Opening (ICD-10-PCS; 2020-05-17)
DX: U07.1 COVID-19 (principal); J80 Acute respiratory distress syndrome; J10.08 Influenza due to other identified influenza virus with other specified pneumonia; J12.89 Other viral pneumonia; J15.212 Pneumonia due to Methicillin resistant Staphylococcus aureus; J44.0 Chronic obstructive pulmonary disease with (acute) lower respiratory infection; G72.81 Critical illness myopathy; D61.818 Other pancytopenia; Z68.43 Body mass index [BMI] 50.0-59.9, adult; J20.9 Acute bronchitis, unspecified; G47.33 Obstructive sleep apnea (adult) (pediatric); I10 Essential (primary) hypertension; E87.6 Hypokalemia; G40.909 Epilepsy, unspecified, not intractable, without status epilepticus; E66.01 Morbid (severe) obesity due to excess calories; K58.9 Irritable bowel syndrome, unspecified; E83.39 Other disorders of phosphorus metabolism; E83.42 Hypomagnesemia; E11.9 Type 2 diabetes mellitus without complications; M19.91 Primary osteoarthritis, unspecified site; M54.9 Dorsalgia, unspecified; F43.10 Post-traumatic stress disorder, unspecified; L30.9 Dermatitis, unspecified; E78.00 Pure hypercholesterolemia, unspecified; N80.9 Endometriosis, unspecified; Z87.891 Personal history of nicotine dependence; Z91.5 Personal history of self-harm; Z79.84 Long term (current) use of oral hypoglycemic drugs; Z87.442 Personal history of urinary calculi
CPT/HCPCS: 36415; 36600; 71045; 71275; 80048; 80053; 80202; 81000; 82553; 82728; 82805; 82962; 83605; 83615; 83735; 83880; 84100; 84145; 84478; 84484; 85025; 85379; 85384; 85610; 85730; 86141; 87040; 87070; 87077; 87081; 87088; 87186; 87205; 93005; 94002; 94003; 94640; 94760; 94799

== ENCOUNTER 2021-02-23 10:18 | Outpatient (RCR) | payer MEDICAID ==
[~2021-02-23 10:18] MED LIST changes: +ACHD5005 PO; +BUSP10TA95 PO; +DAPA10TA PO; +LEVE500T6 PO; +LISI-729 PO; +METF-399 PO; +METO50TA15 PO; +PHEN100C11 PO; +PRAV20TA3 PO; +TR1C15 TOP; +TRAZ-227 PO; +VENL100T2 PO
[2021-02-23 10:39] LABS: BASOPHILS % (AUTO) 1 % (0-10); EOSINOPHILS # (AUTO) 0.1 10^3/uL (0.0-0.3); HEMATOCRIT 44 % (35-52); MONOCYTES # (AUTO) 0.2 10^3/uL (0.0-1.0); MONOCYTES % (AUTO) 5 % (0-12)
[2021-02-23 10:40] LABS: EOSINOPHILS % (AUTO) 4 % (0-10); HEMOGLOBIN 14.1 g/dL (11.5-16.0); LYMPHOCYTES # (AUTO) 0.9 10^3/uL (1.0-4.0); LYMPHOCYTES % (AUTO) 26 % (12-44); MEAN CORPUSCULAR HEMOGLOBIN 30 pg (25-34); MEAN CORPUSCULAR HGB CONC 32 g/dL (32-36); MEAN CORPUSCULAR VOLUME 94 fL (80-99); MEAN PLATELET VOLUME 10.5 fL (9.0-12.2); NEUTROPHILS # (AUTO) 2.1 10^3/uL (1.8-7.8); NEUTROPHILS % (AUTO) 64 % (42-75); PLATELET COUNT 71 10^3/uL (130-400); WHITE BLOOD COUNT 3.2 10^3/uL (4.3-11.0)
== END 2021-02-25 14:47 | disposition home or self-care (01) ==
LOC: ONC 10:18
PROVIDERS: ATTEND Internal Medicine Hematology & Oncology
DX: D69.6 Thrombocytopenia, unspecified (principal); D72.819 Decreased white blood cell count, unspecified; I10 Essential (primary) hypertension; I25.10 Atherosclerotic heart disease of native coronary artery without angina pectoris; E11.9 Type 2 diabetes mellitus without complications; E66.01 Morbid (severe) obesity due to excess calories; F31.9 Bipolar disorder, unspecified
CPT/HCPCS: 85025; 99213

== ENCOUNTER 2021-07-22 11:44 | Emergency (ER) | payer MEDICAID ==
[~2021-07-22] VITALS: Ht 180 cm; Wt 141.0 kg
[~2021-07-22 11:44] MED LIST changes: -LISI-729 PO; +LISI5TAB20 PO
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
[2021-07-22] MEDS ORDERED: PROMETHAZINE 25 MG (PHENERGAN) TAB PO ONE (13:00)
[2021-07-22] MEDS ORDERED: ACETAMINOPHEN 500 MG TAB (TYLENOL) PO ONE (13:00)
[2021-07-22 13:35] VITALS: BP 127/77
[2021-07-22 13:48] LABS: HEMOGLOBIN 14.7 g/dL (11.5-16.0); MONOCYTES # (AUTO) 0.2 10^3/uL (0.0-1.0)
[2021-07-22 13:50] LABS: BASOPHILS % (AUTO) 1 % (0-10); EOSINOPHILS # (AUTO) 0.1 10^3/uL (0.0-0.3); EOSINOPHILS % (AUTO) 4 % (0-10); HEMATOCRIT 45 % (35-52); LYMPHOCYTES # (AUTO) 0.7 10^3/uL (1.0-4.0); LYMPHOCYTES % (AUTO) 22 % (12-44); MEAN CORPUSCULAR HEMOGLOBIN 30 pg (25-34); MEAN CORPUSCULAR HGB CONC 33 g/dL (32-36); MEAN CORPUSCULAR VOLUME 91 fL (80-99); MEAN PLATELET VOLUME 9.9 fL (9.0-12.2); MONOCYTES % (AUTO) 6 % (0-12); NEUTROPHILS # (AUTO) 2.1 10^3/uL (1.8-7.8); NEUTROPHILS % (AUTO) 68 % (42-75); PLATELET COUNT 69 10^3/uL (130-400); WHITE BLOOD COUNT 3.1 10^3/uL (4.3-11.0)
[2021-07-22 13:57] LABS: POTASSIUM 4.1 MMOL/L (3.6-5.0)
[2021-07-22 13:59] LABS: CALCIUM 9.5 MG/DL (8.5-10.1)
[2021-07-22 14:03] LABS: CREATININE SERUM 0.74 MG/DL (0.60-1.30)
== END 2021-07-22 13:55 | disposition home or self-care (01) ==
LOC: EDUNIT# 11:44 → ER 11:45
DX: G40.909 Epilepsy, unspecified, not intractable, without status epilepticus (principal); J44.9 Chronic obstructive pulmonary disease, unspecified; I10 Essential (primary) hypertension; E78.00 Pure hypercholesterolemia, unspecified; F32.9 Major depressive disorder, single episode, unspecified; E66.9 Obesity, unspecified; E11.9 Type 2 diabetes mellitus without complications; G89.29 Other chronic pain; M54.9 Dorsalgia, unspecified; Z68.41 Body mass index [BMI] 40.0-44.9, adult; Z87.820 Personal history of traumatic brain injury; Z79.84 Long term (current) use of oral hypoglycemic drugs; Z79.891 Long term (current) use of opiate analgesic; Z79.899 Other long term (current) drug therapy
CPT/HCPCS: 36415; 80048; 80185; 85025

== ENCOUNTER → 2022-03-15 | Outpatient (CLI) | payer MEDICAID ==
[2022-03-15 10:38] LABS: BASOPHILS % (AUTO) 1 % (0-10); EOSINOPHILS # (AUTO) 0.2 10^3/uL (0.0-0.3); HEMOGLOBIN 13.8 g/dL (11.5-16.0); LYMPHOCYTES # (AUTO) 0.9 10^3/uL (1.0-4.0); MONOCYTES # (AUTO) 0.2 10^3/uL (0.0-1.0)
[2022-03-15 10:39] LABS: EOSINOPHILS % (AUTO) 5 % (0-10); HEMATOCRIT 42 % (35-52); LYMPHOCYTES % (AUTO) 26 % (12-44); MEAN CORPUSCULAR HEMOGLOBIN 30 pg (25-34); MEAN CORPUSCULAR HGB CONC 33 g/dL (32-36); MEAN CORPUSCULAR VOLUME 90 fL (80-99); MEAN PLATELET VOLUME 10.3 fL (9.0-12.2); MONOCYTES % (AUTO) 7 % (0-12); NEUTROPHILS # (AUTO) 2.1 10^3/uL (1.8-7.8); NEUTROPHILS % (AUTO) 62 % (42-75); PLATELET COUNT 58 10^3/uL (130-400); WHITE BLOOD COUNT 3.3 10^3/uL (4.3-11.0)
== END ==
LOC: ONC 09:35
PROVIDERS: ATTEND Internal Medicine Hematology & Oncology
DX: D69.6 Thrombocytopenia, unspecified (principal); I10 Essential (primary) hypertension; E11.9 Type 2 diabetes mellitus without complications; E66.01 Morbid (severe) obesity due to excess calories
CPT/HCPCS: 36415; 85025; 99213